=== PATIENT | female | born 1970 | race Caucasian/White ===

== ENCOUNTER 2016-11-23 21:42 | Emergency (ER) | payer MEDICARE, OTHER ==
[2016-11-23 21:54] VITALS: BP 132/99; PULSE 100; RESP 18; TEMP 98.1
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
[2016-11-23] MEDS ORDERED: KETOROLAC 60 MG/2 ML VIAL IM STA (22:33)
--- NOTE | 2016-11-23 22:49 | XR ---
EXAM: XR Right Foot Complete, 3 or More Views CLINICAL HISTORY: Reason: Pain TECHNIQUE: Frontal, lateral and oblique views of the right foot. COMPARISON: No relevant prior studies available. FINDINGS: Bones/joints: No acute fracture or malalignment. Small dorsal calcaneal enthesophyte. Small plantar calcaneal osteophyte. Soft tissues: Unremarkable. No radiopaque foreign body. IMPRESSION: No acute fracture or malalignment.
== END 2016-11-23 22:42 | disposition home or self-care (01) ==
LOC: EC 21:42
DX: S90.31XA Contusion of right foot, initial encounter (principal); E11.9 Type 2 diabetes mellitus without complications; E78.5 Hyperlipidemia, unspecified; I10 Essential (primary) hypertension; F31.9 Bipolar disorder, unspecified; F41.9 Anxiety disorder, unspecified; F41.0 Panic disorder [episodic paroxysmal anxiety]; Z87.891 Personal history of nicotine dependence; Z79.4 Long term (current) use of insulin; Z79.899 Other long term (current) drug therapy; Z88.1 Allergy status to other antibiotic agents; Z88.0 Allergy status to penicillin; Z88.2 Allergy status to sulfonamides; Z88.8 Allergy status to other drugs, medicaments and biological substances; Z88.6 Allergy status to analgesic agent; W23.0XXA Caught, crushed, jammed, or pinched between moving objects, initial encounter
CPT/HCPCS: 73630; 99283; 96372; J1885

== ENCOUNTER → 2016-12-08 | Outpatient (CLI) | payer MEDICARE, OTHER ==
--- NOTE | 2016-12-08 22:10 | MR ---
EXAMINATION TYPE: MR brain wo con DATE OF EXAM: 12/08/2016 COMPARISON: NONE HISTORY: 46-year-old female with headaches, neck and back pain, Trouble walking TECHNIQUE: Multiplanar, multisequence images of the brain and brainstem were acquired without IV con trast. Diffusion weighted imaging is performed. FINDINGS: No evidence for acute infarction, hemorrhage, mass, mass effect, midline shift, herniation, effacemen t of basal cisterns, or extra-axial fluid collection. The ventricles and sulci are age-appropriate. The right vertebral artery is hypoplastic. Otherwise, the major intracranial flow voids are intact. T2/FLAIR weighted sequences show no white matter signal abnormality. Midline structures demonstrate normal morphology. The craniocervical junction is normal. Trace mucosal thickening ethmoid air cells. Globes are intact. IMPRESSION: No intracranial abnormality seen. No white matter signal changes.
--- NOTE | 2016-12-08 22:26 | MR ---
EXAMINATION TYPE: MR cspine/lspine wo con DATE OF EXAM: 12/08/2016 COMPARISON: NONE HISTORY: 46-year-old female Headaches, Neck and back pain, Trouble walking TECHNIQUE: Multiplanar, multisequence images of the cervical followed by the lumbar spine were obtain ed without IV contrast. FINDINGS: CERVICAL SPINE: No craniocervical junction abnormality, predental space widening, or prevertebral soft tissue swellin g. There is straightening of the normal cervical lordosis though alignment is maintained. There is variable mild intervertebral disc desiccation and disc osteophyte complex formation along wi th uncovertebral joint and scattered facet degenerative change. In addition, there is a component of mild congenital spinal canal narrowing within the cervical spine with AP canal dimension of 1 cm. There is canal narrowing is further situated at some levels due to bulging discs/disc osteophyte comp gene. At C2-C3, mild facet arthropathy without canal or foraminal stenosis. At C3-C4, there is broad-based posterior disc osteophyte complex with mild facet and uncovertebral phyllis int degenerative change. Slight further accentuation in the mild congenital canal narrowing with abut ment of the ventral cord and minimal cord flattening but no cord compression. No neuroforaminal steno sis. At C4-C5, mild uncovertebral joint and facet degenerative change. This minimally narrows the right ne uroforamen. No significant spinal canal stenosis. At C5-C6, minimal posterior disc bulge/discussed by complex with uncovertebral joint and facet degene rative change. This minimally narrows the right neuroforamen without significant spinal canal stenosi s. At C6-C7, there is a mild left paracentral broad-based disc protrusion or disc osteophyte complex whi ch minimally accentuates the mild congenital canal narrowing but does not contribute to any significa nt spinal canal stenosis. Additional facet degenerative change here without neuroforaminal stenosis. At C7-T1, facet degenerative change without significant spinal canal or neuroforaminal stenosis. Normal course, caliber, and signal intensity of the cervical cord. There is suggestion of a right paracentral disc protrusion at T3-T4 mildly narrowing the right neurof oramen and possibly similar change at T4-T5 on the left. Incidental 9 mm Thornwaldt cyst is noted. Otherwise, no prevertebral or paravertebral soft tissue abn ormality. LUMBAR SPINE: There is an accentuated lumbar lordosis but with preserved alignment. Intervertebral discs show variable mild to moderate disc desiccation and disc bulging at multiple lev els. There is prominent dorsal epidural fat and prominent circumferential epidural fat beginning at L5 lev el extending downward. No suspicious bone marrow replacement. Conus medullaris is normal. At T12-L1, no spinal canal or neuroforaminal stenosis. At L1-L2, mild broad-based posterior disc protrusion with facet degenerative change. Prominent dorsal epidural fat. Changes do not result in any significant spinal canal or foraminal stenosis. At L2-L3, no significant spinal canal or neuroforaminal stenosis. At L3-L4, there is mild diffuse disc bulge and prominent dorsal epidural fat along with mild facet ar thropathy. A posterior annular fissure is present at this level. No significant spinal canal or neuro foraminal stenosis. At L4-L5, there is diffuse disc bulge with posterior annular fissure along with facet arthropathy and prominent dorsal epidural fat. This causes circumferential attenuation of the thecal sac without sig nificant neural foraminal stenosis. At L5-S1, there is epidural lipomatosis causing moderate thecal sac attenuation. Hypertrophic facet a rthropathy particularly on the left with diffuse disc bulge. No significant neuroforaminal stenosis. Prominent epidural lipomatosis extends within the sacral canal. No prevertebral or paravertebral soft tissue abnormality. COMBINED IMPRESSION: CERVICAL SPINE: 1. Mild to moderate multilevel degenerative disc disease related disc desiccation and small disc bulg es/disc osteophyte complexes. Additional scattered facet and uncovertebral joint arthropathy. 2. There is a component of mild congenital canal stenosis with tiny disc bulges/disc osteophyte compl exes further accentuating the mild canal narrowing such as at C3-C4 and C6-C7. Disc material abuts an d minimally flattens the ventral cord at C3-C4. Otherwise, no cord compression or canal compromise. 3. Partially visualized small right paracentral disc protrusion at T3-T4 mildly narrowing the right n euroforamen and similar changes on the left at T4-T5. LUMBAR SPINE: 1. Accentuated lumbar lordosis with hypertrophic facet arthropathy in the lower lumbar spine but with preserved alignment. 2. Mild to moderate multilevel degenerative disc disease. There is variable disc desiccation and disc bulging with posterior annular fissures at L3-L4 and L4-L5. 3. Prominent epidural fat mild to moderately attenuates the thecal sac at L5-S1 and mildly at at L4-L 5. There is also prominent epidural lipomatosis throughout the sacral spinal canal. No juan canal co mpromise. 4. No high-grade foraminal compromise.
== END | disposition home or self-care (01) ==
LOC: RADMRIMAIN 14:58
PROVIDERS: ATTEND Nurse Practitioner Acute Care
DX: M50.31 Other cervical disc degeneration, high cervical region (principal); M48.02 Spinal stenosis, cervical region; M46.82 Other specified inflammatory spondylopathies, cervical region; M51.36 Other intervertebral disc degeneration, lumbar region; M51.26 Other intervertebral disc displacement, lumbar region; M40.46 Postural lordosis, lumbar region; M46.86 Other specified inflammatory spondylopathies, lumbar region; R51 Headache; Z88.0 Allergy status to penicillin; Z88.1 Allergy status to other antibiotic agents; Z88.2 Allergy status to sulfonamides
CPT/HCPCS: 70551; 72141; 72148

== ENCOUNTER 2018-01-09 19:44 | Emergency (ER) | payer MEDICARE, OTHER ==
[2018-01-09 19:52] VITALS: BP 140/74; PULSE 93; RESP 20; TEMP 98.4
[2018-01-09] MEDS ORDERED: HYDROcodone/APAP 7.5-325MG 1 EACH TAB PO ONE (21:49)
--- NOTE | 2018-01-09 21:51 | ED ---
Back Pain HPI - General Chief Complaint: Back Pain/Injury Stated Complaint: back pain Time Seen by Provider: 01/09/18 21:28 Source: patient Limitations: no limitations - History of Present Illness Initial Comments: This is a 47yo female with PMH of DM, Asthma, HTN, and chronic low back pain who presents today for worsening low back pain x4 days. Pt states that this past Tuesday she was walking down the stairs when she misstepped missing a step jarring her lower back. Later that evening she noticed low back pain that was greater on the left than the right.. Pt stated the low back pain has been constant since Tuesday, today at 5:00pm the pain was at its worst 10/10 sharp pain of the low back spread across the low back b/l with L>R. She stated that her baclofen and norco she took in the AM had not helped so decided to present to the emergency department for further pain management. Pt denied fever, chills , weight loss, IVDU, chest pain, shortness of breath, abdominal pain/epigastric pain, nausea vomiting, parathesias/numbness/tingling, muscles weakeness of the LE or UE b/l, dizziness, syncope, loss of bowel of bladder control, saddle anesthesia, dysuria, urgency, frequency or hematuria, flank pain, . Pt has been following Dr Modi for pain management and injections, pt denies recent spinal injections. - Related Data Home Medications Medication Instructions Recorded Confirmed DULoxetine HCL [Cymbalta] 120 mg PO DAILY 11/06/13 06/09/17 Diazepam 2 mg PO HS 11/06/13 06/09/17 Insulin Aspart [NovoLOG] See Protocol SQ ACHS PRN 11/06/13 06/09/17 Insulin Detemir [Levemir] 10 unit SQ QAM 11/06/13 06/09/17 Losartan/Hydrochlorothiazide 1 tab PO DAILY 11/06/13 06/09/17 [Losartan-Hctz 100-25 mg Tab] Omeprazole [PriLOSEC] 20 mg PO DAILY 11/06/13 06/09/17 clonazePAM [KlonoPIN] 1.5 mg PO TID PRN 11/06/13 06/09/17 Aspirin 325 mg PO DAILY 06/09/17 06/09/17 Atorvastatin [Lipitor] 20 mg PO HS 06/09/17 06/09/17 Baclofen [Lioresal] 10 mg PO BID 06/09/17 06/09/17 Cholecalciferol [Vitamin D3] 5,000 unit PO DAILY 06/09/17 06/09/17 HYDROcodone/APAP 7.5-325MG [[place] 1 tab PO TID PRN 06/09/17 06/09/17 7.5-325] Insulin Detemir [Levemir] 28 unit SQ HS 06/09/17 06/09/17 Meclizine [Antivert] 12.5 mg PO BID 06/09/17 06/09/17 Topiramate [Topamax] 50 mg PO BID 06/09/17 06/09/17 amLODIPine [Norvasc] 10 mg PO DAILY 06/09/17 06/09/17 Previous Rx's Medication Instructions Recorded predniSONE 20 mg PO DAILY 4 Days #4 tab 01/09/18 Allergies Allergy/AdvReac Type Severity Reaction Status Date / Time levofloxacin [From Levaquin] Allergy Anaphylaxis Verified 01/09/18 19:52 methylprednisolone sodium Allergy Unknown Verified 01/09/18 19:52 succinate [From Solu-Medrol] Penicillins Allergy Swelling Verified 01/09/18 19:52 sulfamethoxazole Allergy Swelling Verified 01/09/18 19:52 [From Bactrim] trimethoprim [From Bactrim] Allergy Swelling Verified 01/09/18 19:52 Review of Systems ROS Statement: Those systems with pertinent positive or pertinent negative responses have been documented in the HPI. ROS Other: All systems not noted in ROS Statement are negative. Constitutional: Denies: fever, chills, weight change, night sweats ENT: Denies: ear pain, throat pain Respiratory: Denies: cough, dyspnea, wheezes, hemoptysis Cardiovascular: Denies: chest pain, palpitations, orthopnea, edema, syncope Endocrine: Denies: fatigue Gastrointestinal: Denies: abdominal pain, nausea, vomiting, diarrhea, constipation, hematemesis, melena, hematochezia Genitourinary: Denies: urgency, dysuria, frequency Musculoskeletal: Reports: as per HPI, back pain, myalgia. Denies: joint swelling, arthralgia Skin: Denies: rash, lesions, change in color Neurological: Denies: headache, weakness, numbness, paresthesias, confusion, abnormal gait, vertigo Past Medical History Past Medical History: Asthma, Diabetes Mellitus, Hyperlipidemia, Hypertension History of Any Multi-Drug Resistant Organisms: MRSA Date of last positivie culture/infection: 2012 MDRO Source:: right knee Past Surgical History: Cholecystectomy, Orthopedic Surgery Additional Past Surgical History / Comment(s): thoracotomy age 22 for mass in left lung Past Psychological History: Anxiety, Bipolar, Depression, Panic Disorder Smoking Status: Former smoker Past Alcohol Use History: None Reported Past Drug Use History: None Reported General Exam - General Exam Comments Initial Comments: General: The patient is awake and alert, in no distress, and does not appear acutely ill. Eye: Pupils are equal, round and reactive to light, extra-ocular movements are intact. No nystagmus. There is normal conjunctiva bilaterally. No signs of icterus. Ears, nose, mouth and throat: There are moist mucous membranes and no oral lesions. Neck: The neck is supple, there is no tenderness or JVD. Cardiovascular: There is a regular rate and rhythm. No murmur, rub or gallop is appreciated. Respiratory: Lungs are clear to auscultation, respirations are non-labored, breath sounds are equal. No wheezes, stridor, rales, or rhonchi. Gastrointestinal: Soft, non-distended, non-tender abdomen without masses or organomegaly noted. There is no rebound or guarding present. No CVA tenderness. Bowel sounds are unremarkable. Musculoskeletal: Examination of these back reveals no erythema, lesions or rashes. There is no ecchymosis or soft tissue swelling. Palpation over the left latissimus dorsi reproduces pain. There is no midline vertebral tenderness over the entire length vertebral,. Patient is able to forward flex with discomfort and hyperextend with similar discomfort. Normal ROM, no tenderness of the lower extremities bilaterally. Strength 5/5 of the lower extremities bilaterally. Sensation intact of the lower extremities bilaterally, no saddle paresthesias. Pulses equal bilaterally 2+ DP. +2 deep tendon reflexes of the lower extremities, no fasciculations or myoclonus. Patient is able to stand on her heels and her toes without difficulty. Positive straight leg raise bilaterally. Neurological: A&O x 3. CN II-XII intact, There are no obvious motor or sensory deficits. Coordination appears grossly intact. Speech is normal. Skin: Skin is warm and dry and no rashes or lesions are noted. Psychiatric: Cooperative, appropriate mood & affect, normal judgment. Limitations: no limitations Course Vital Signs 01/09/18 19:49 Temperature 98.4 F Pulse Rate 93 Respiratory 20 Rate Blood Pressure 140/74 O2 Sat by Pulse 99 Oximetry Medical Decision Making - Medical Decision Making 47-year-old with past medical history of chronic low back pain. Given patient' s history of jarring of the low back x-rays were obtained, revealing no acute process. Physical examination findings revealing tenderness to palpation over the left latissimus dorsi raises suspicion for low back strain. Patient stated that she had not taken her baclofen yet today. Patient was given [place] and Flexeril for pain and muscle tension. She states that this gave some relief. She mentioned that she has had success with Toradol injection the past. At this time I feel patient is neurovascularly intact, with low suspicion for cauda equina syndrome, stable for discharge with follow-up with her neurologist who she sees for her chronic low back pain in 1-2 days. Patient stated that she was ready for discharge. Patient is given a Toradol injection prior to discharge. Case discussed in detail with Dr. Vidal. Patient was discharged in stable condition with follow-up with prescription for prednisone for possible inflammation of the low back/additive symptoms relief and f/u with Dr. Modi in 1-2 days. Pt d/c in stable condition. Disposition Clinical Impression: Acute exacerbation of chronic low back pain, Low back strain Disposition: HOME SELF-CARE Condition: Good Instructions: Acute Low Back Pain (ED) Prescriptions: predniSONE 20 mg PO DAILY 4 Days #4 tab Is patient prescribed a controlled substance at d/c from ED?: No Referrals: Sebastian Reyez MD [Primary Care Provider] - 1-2 days Julian Modi MD [STAFF PHYSICIAN] - 1-2 days Time of Disposition: 22:49
[2018-01-09] MEDS ORDERED: CYCLOBENZAPRINE 5 MG TAB PO STA (21:55)
--- NOTE | 2018-01-09 22:13 | XR ---
EXAMINATION TYPE: XR lumbar spine 2 or 3V DATE OF EXAM: 01/09/2018 COMPARISON: NONE HISTORY: Back pain TECHNIQUE: 3 views FINDINGS: Lumbar vertebra have fairly normal alignment. Posterior elements are intact. Sacroiliac isabella nts are intact. There is hypertrophic anterior spurring in the lower thoracic spine. There is no comp ression fracture. Sacroiliac joints appear intact. IMPRESSION: No acute abnormality of the lumbar spine.
[2018-01-09] MEDS ORDERED: KETOROLAC 30 MG/ML 1 ML VIAL IVP STA (22:48)
[2018-01-09] MEDS ORDERED: KETOROLAC 30 MG/ML 1 ML VIAL IM STA (22:52)
== END 2018-01-09 23:25 | disposition home or self-care (01) ==
LOC: EC 19:44
DX: S39.012A Strain of muscle, fascia and tendon of lower back, initial encounter (principal); E11.9 Type 2 diabetes mellitus without complications; E78.5 Hyperlipidemia, unspecified; I10 Essential (primary) hypertension; F41.9 Anxiety disorder, unspecified; F31.9 Bipolar disorder, unspecified; Z86.14 Personal history of Methicillin resistant Staphylococcus aureus infection; Z87.891 Personal history of nicotine dependence; Z90.49 Acquired absence of other specified parts of digestive tract; Z98.890 Other specified postprocedural states; Z79.4 Long term (current) use of insulin; Z79.82 Long term (current) use of aspirin; Z79.899 Other long term (current) drug therapy; Z88.0 Allergy status to penicillin; Z88.1 Allergy status to other antibiotic agents; Z88.2 Allergy status to sulfonamides; Z88.8 Allergy status to other drugs, medicaments and biological substances; X50.1XXA Overexertion from prolonged static or awkward postures, initial encounter; Y93.01 Activity, walking, marching and hiking
CPT/HCPCS: 72100; 99283; 96372; J1885

== ENCOUNTER 2018-04-24 13:53 | Inpatient (IN) | payer MEDICARE, MEDICAID ==
[2018-04-24] MEDS ORDERED: ALPRAZolam 1 MG TAB PO STA (15:38)
--- NOTE | 2018-04-24 15:39 | ED ---
Psych HPI - General Chief Complaint: Psychiatric Symptoms Stated Complaint: "nervous breakdown" Time Seen by Provider: 04/24/18 14:58 Source: patient Mode of arrival: ambulatory - History of Present Illness Initial Comments: 47yo female with PMH of PTSD, anxiety disorder, depression presenting today for "nervous breakdown" pt states that she has been depressed for the past 6 weeks since a breakup with her significant other. Pt states she has had decreased appetite, uncontrollable crying and panic attacks. Pt states that she does not have an suicidal ideations/plan or homicidal thoughts. Pt presented to her primary care today due to depressive feelings and she was told to come to the ER for evaluation and was told she was having a nervous break down, pt does state that she has chest pressure but this is identical to when she has panic attacks and this feeling has been constant for the past 6 weeks, pt denies any shortness of breath, jaw pain, UE parathesias, dizziness, headache, abdominal pain, nausea and vomiting. Pt is eating/drink, she is drinking soda on exam. Pt states that her appetite has just decreased. Remainder of ROS (-), patient denies any recent fever, chills, shortness of breath, back pain, abdominal pain , nausea or vomiting, numbness or tingling, dysuria or hematuria, constipation or diarrhea, headaches or visual changes, or any other complaints. She is crying at first however this subsides through remainder of HPI. VS within acceptable limits, pt appears well, nontoxic. - Related Data Home Medications Medication Instructions Recorded Confirmed DULoxetine HCL [Cymbalta] 120 mg PO DAILY 11/06/13 04/24/18 Insulin Aspart [NovoLOG] See Protocol SQ ACHS PRN 11/06/13 04/24/18 Losartan/Hydrochlorothiazide 1 tab PO DAILY 11/06/13 04/24/18 [Losartan-Hctz 100-25 mg Tab] Atorvastatin [Lipitor] 20 mg PO HS 06/09/17 04/24/18 Baclofen [Lioresal] 10 mg PO BID 06/09/17 04/24/18 HYDROcodone/APAP 7.5-325MG [[place] 1 tab PO TID PRN 06/09/17 04/24/18 7.5-325] amLODIPine [Norvasc] 10 mg PO DAILY 06/09/17 04/24/18 Insulin Glargine,Hum.rec.anlog 3 unit SQ HS 04/24/18 04/24/18 [Lantus Solostar] busPIRone HCL 15 mg PO BID 04/24/18 04/24/18 sitaGLIPtin PHOSPHATE [Januvia] 100 mg PO DAILY 04/24/18 04/24/18 Allergies Allergy/AdvReac Type Severity Reaction Status Date / Time levofloxacin [From Levaquin] Allergy Anaphylaxis Verified 04/24/18 14:43 methylprednisolone sodium Allergy Unknown Verified 04/24/18 14:43 succinate [From Solu-Medrol] Penicillins Allergy Swelling Verified 04/24/18 14:43 sulfamethoxazole Allergy Swelling Verified 04/24/18 14:43 [From Bactrim] trimethoprim [From Bactrim] Allergy Swelling Verified 04/24/18 14:43 Review of Systems ROS Statement: Those systems with pertinent positive or pertinent negative responses have been documented in the HPI. ROS Other: All systems not noted in ROS Statement are negative. Constitutional: Denies: fever, chills Eyes: Denies: eye pain ENT: Denies: as per HPI, ear pain, throat pain Respiratory: Denies: cough, dyspnea, wheezes, hemoptysis, stridor Cardiovascular: Reports: as per HPI (chest pressure/anxiety). Denies: chest pain, palpitations Endocrine: Denies: fatigue Gastrointestinal: Reports: as per HPI (decreased appetite x6 weeks). Denies: abdominal pain, nausea, vomiting, diarrhea, constipation, hematemesis Genitourinary: Denies: urgency, dysuria, frequency, hematuria Musculoskeletal: Denies: back pain Skin: Denies: rash, lesions Neurological: Denies: as per HPI, headache, weakness, numbness, paresthesias, confusion, abnormal gait Psychiatric: Reports: as per HPI, anxiety, depression, other (panic attacks on and off for 6 weeks) Past Medical History Past Medical History: Asthma, Diabetes Mellitus, Hyperlipidemia, Hypertension History of Any Multi-Drug Resistant Organisms: MRSA Date of last positivie culture/infection: 2012 MDRO Source:: right knee Past Surgical History: Cholecystectomy, Orthopedic Surgery Additional Past Surgical History / Comment(s): thoracotomy age 22 for mass in left lung Past Psychological History: Anxiety, Bipolar, Depression, Panic Disorder Smoking Status: Former smoker Past Alcohol Use History: None Reported Past Drug Use History: None Reported General Exam Limitations: no limitations Course Vital Signs 04/24/18 04/24/18 04/24/18 14:08 16:45 21:00 Temperature 98.7 F Pulse Rate 99 88 89 Respiratory 18 20 16 Rate Blood Pressure 163/68 143/78 138/80 O2 Sat by Pulse 94 L 98 97 Oximetry 04/24/18 04/25/18 04/25/18 22:21 00:16 12:21 Temperature Pulse Rate 87 77 Respiratory 16 20 18 Rate Blood Pressure 162/94 151/72 O2 Sat by Pulse 98 98 Oximetry Medical Decision Making - Medical Decision Making Laboratory findings as noted above, chest x-ray negative. Negative acute coronary workup. EKG no changes from 2017. Pt chest pressure stated to be identical to previous panic episodes and has been ongoing for 6 weeks at this time I feel this is the cause of the symptom. UA (-) Urine drug (-). Pt given 1mg PO xanax which she stated helped with anxiety. Pt medically cleared, EPS notified. EPS decided pt should be admitted for further psychiatric care. Pt resumed on home medications after reconciling medications. Patient was transferred to the floor on in stable condition. - Lab Data Result diagrams: 04/24/18 16:08 04/24/18 16:08 Lab Results 04/24/18 04/24/18 04/24/18 Range/Units 16:08 16:08 16:08 WBC 13.1 H (3.8-10.6) k/uL RBC 4.60 (3.80-5.40) m/uL Hgb 13.0 (11.4-16.0) gm/dL Hct 40.4 (34.0-46.0) % MCV 87.7 (80.0-100.0) fL MCH 28.3 (25.0-35.0) pg MCHC 32.3 (31.0-37.0) g/dL RDW 13.7 (11.5-15.5) % Plt Count 467 H (150-450) k/uL Neutrophils % 69 % Lymphocytes % 26 % Monocytes % 3 % Eosinophils % 1 % Basophils % 0 % Neutrophils # 9.1 H (1.3-7.7) k/uL Lymphocytes # 3.4 (1.0-4.8) k/uL Monocytes # 0.4 (0-1.0) k/uL Eosinophils # 0.1 (0-0.7) k/uL Basophils # 0.1 (0-0.2) k/uL Sodium 137 (137-145) mmol/L Potassium 3.2 L (3.5-5.1) mmol/L Chloride 102 (98-107) mmol/L Carbon Dioxide 23 (22-30) mmol/L Anion Gap 12 mmol/L BUN 11 (7-17) mg/dL Creatinine 0.78 (0.52-1.04) mg/dL Est GFR (CKD-EPI)AfAm >90 (>60 ml/min/1.73 sqM) Est GFR (CKD-EPI)NonAf >90 (>60 ml/min/1.73 sqM) Glucose 157 H (74-99) mg/dL POC Glucose (mg/dL) (75-99) mg/dL POC Glu Dyed Raw Stock Blower Feeder ID Calcium 9.6 (8.4-10.2) mg/dL Total Bilirubin 0.4 (0.2-1.3) mg/dL AST 34 (14-36) U/L ALT 38 (9-52) U/L Alkaline Phosphatase 85 (38-126) U/L Total Creatine Kinase 131 (30-135) U/L CK-MB (CK-2) 2.8 H (0.0-2.4) ng/mL CK-MB (CK-2) Rel Index 2.1 Troponin I <0.012 (0.000-0.034) ng/mL Total Protein 7.4 (6.3-8.2) g/dL Albumin 4.0 (3.5-5.0) g/dL Urine Color Urine Appearance (Clear) Urine pH (5.0-8.0) Ur Specific [place] (1.001-1.035) Urine Protein (Negative) Urine Glucose (UA) (Negative) Urine Ketones (Negative) Urine Blood (Negative) Urine Nitrite (Negative) Urine Bilirubin (Negative) Urine Urobilinogen (<2.0) mg/dL Ur Leukocyte Esterase (Negative) Urine RBC (0-5) /hpf Urine WBC (0-5) /hpf Ur Squamous Epith Cells (0-4) /hpf Urine Bacteria (None) /hpf Urine Mucus (None) /hpf Urine Opiates Screen (NotDetected) Ur Oxycodone Screen (NotDetected) Urine Methadone Screen (NotDetected) Ur Propoxyphene Screen (NotDetected) Ur Barbiturates Screen (NotDetected) U Tricyclic Antidepress (NotDetected) Ur Phencyclidine Scrn (NotDetected) Ur Amphetamines Screen (NotDetected) U Methamphetamines Scrn (NotDetected) U Benzodiazepines Scrn (NotDetected) Urine Cocaine Screen (NotDetected) U Marijuana (THC) Screen (NotDetected) 04/24/18 04/25/18 Range/Units 19:27 12:52 WBC (3.8-10.6) k/uL RBC (3.80-5.40) m/uL Hgb (11.4-16.0) gm/dL Hct (34.0-46.0) % MCV (80.0-100.0) fL MCH (25.0-35.0) pg MCHC (31.0-37.0) g/dL RDW (11.5-15.5) % Plt Count (150-450) k/uL Neutrophils % % Lymphocytes % % Monocytes % % Eosinophils % % Basophils % % Neutrophils # (1.3-7.7) k/uL Lymphocytes # (1.0-4.8) k/uL Monocytes # (0-1.0) k/uL Eosinophils # (0-0.7) k/uL Basophils # (0-0.2) k/uL Sodium (137-145) mmol/L Potassium (3.5-5.1) mmol/L Chloride (98-107) mmol/L Carbon Dioxide (22-30) mmol/L Anion Gap mmol/L BUN (7-17) mg/dL Creatinine (0.52-1.04) mg/dL Est GFR (CKD-EPI)AfAm (>60 ml/min/1.73 sqM) Est GFR (CKD-EPI)NonAf (>60 ml/min/1.73 sqM) Glucose (74-99) mg/dL POC Glucose (mg/dL) 132 H (75-99) mg/dL POC Glu Dyed Raw Stock Blower Feeder ID [place] Calcium (8.4-10.2) mg/dL Total Bilirubin (0.2-1.3) mg/dL AST (14-36) U/L ALT (9-52) U/L Alkaline Phosphatase (38-126) U/L Total Creatine Kinase (30-135) U/L CK-MB (CK-2) (0.0-2.4) ng/mL CK-MB (CK-2) Rel Index Troponin I (0.000-0.034) ng/mL Total Protein (6.3-8.2) g/dL Albumin (3.5-5.0) g/dL Urine Color Yellow Urine Appearance Cloudy H (Clear) Urine pH 6.0 (5.0-8.0) Ur Specific [place] 1.008 (1.001-1.035) Urine Protein Negative (Negative) Urine Glucose (UA) Negative (Negative) Urine Ketones Negative (Negative) Urine Blood Negative (Negative) Urine Nitrite Negative (Negative) Urine Bilirubin Negative (Negative) Urine Urobilinogen <2.0 (<2.0) mg/dL Ur Leukocyte Esterase Negative (Negative) Urine RBC 1 (0-5) /hpf Urine WBC 3 (0-5) /hpf Ur Squamous Epith Cells 8 H (0-4) /hpf Urine Bacteria Occasional H (None) /hpf Urine Mucus Rare H (None) /hpf Urine Opiates Screen Detected H (NotDetected) Ur Oxycodone Screen Not Detected (NotDetected) Urine Methadone Screen Not Detected (NotDetected) Ur Propoxyphene Screen Not Detected (NotDetected) Ur Barbiturates Screen Not Detected (NotDetected) U Tricyclic Antidepress Not Detected (NotDetected) Ur Phencyclidine Scrn Not Detected (NotDetected) Ur Amphetamines Screen Not Detected (NotDetected) U Methamphetamines Scrn Not Detected (NotDetected) U Benzodiazepines Scrn Detected H (NotDetected) Urine Cocaine Screen Not Detected (NotDetected) U Marijuana (THC) Screen Not Detected (NotDetected) - EKG Data EKG Comments: Ventricular rate is 87bpm, NM interval 156 ms hindu 136 ms QT/QTC 426/512 ms this is normal sinus, right bundle branch block. Nonspecific ST-T wave abnormalities. EKG was compared to that of May 2017, no acute changes. PT was elevated myself and Dr. Mares. Disposition Clinical Impression: Anxiety, Depression Disposition: ADMITTED IP TO THIS HOSP Condition: Stable
[2018-04-24 16:35] LABS: Basophils # (A) 0.1 k/uL (0-0.2); Basophils % (A) 0 %; Eosinophils # (A) 0.1 k/uL (0-0.7); Eosinophils % (A) 1 %; HCT 40.4 % (34.0-46.0); Lymphocytes # (A) 3.4 k/uL (1.0-4.8); Lymphocytes % (A) 26 %; MCH 28.3 pg (25.0-35.0); MCHC 32.3 g/dL (31.0-37.0); MCV 87.7 fL (80.0-100.0); Mean Platelet Volume 6.3; Monocytes # (A) 0.4 k/uL (0-1.0); Monocytes % (A) 3 %; Neutrophils # (A) 9.1 k/uL (1.3-7.7); Neutrophils % (A) 69 %; Platelet Count 467 k/uL (150-450); RDW 13.7 % (11.5-15.5); WBC 13.1 k/uL (3.8-10.6)
[2018-04-24 16:46] LABS: ALT 38 U/L (9-52); AST 34 U/L (14-36); Alkaline Phosphatase 85 U/L (38-126); Anion Gap 12 mmol/L; Blood Urea Nitrogen 11 mg/dL (7-17); Calcium 9.6 mg/dL (8.4-10.2); Carbon Dioxide 23 mmol/L (22-30); Chloride 102 mmol/L (98-107); Glucose 157 mg/dL (74-99); Potassium 3.2 mmol/L (3.5-5.1); Sodium 137 mmol/L (137-145); Total Bilirubin 0.4 mg/dL (0.2-1.3); Total Protein 7.4 g/dL (6.3-8.2)
[2018-04-24 16:49] LABS: Creatine Kinase 131 U/L (30-135)
--- NOTE | 2018-04-24 16:59 | XR ---
EXAMINATION TYPE: XR chest 2V DATE OF EXAM: 04/24/2018 COMPARISON: Prior chest x-ray 11/06/2013 HISTORY: Anxiety, hypertension, pain TECHNIQUE: Frontal and lateral views of the chest are obtained. FINDINGS: There is no focal air space opacity, pleural effusion, or pneumothorax seen. The cardiac silhouette size is within normal limits. Postop change again noted to the right shoulder. Kyphosis ce ntered near the thoracic lumbar junction as on prior exam. The osseous structures are intact. IMPRESSION: No acute cardiopulmonary process.
[2018-04-24 17:01] LABS: Creatine Kinase MB 2.8 ng/mL (0.0-2.4); Troponin I <0.012 ng/mL (0.000-0.034)
[2018-04-24] MEDS ORDERED: POTASSIUM CHLORIDE ER 20 MEQ TAB.ER PO STA (18:22)
[2018-04-24 19:40] LABS: Appearance,Urine Cloudy (Clear); Bacteria,Urine Occasional /hpf; Bilirubin,Urine Negative (Negative); Blood,Urine Negative (Negative); Color,Urine Yellow; Glucose,Urine (UA) Negative (Negative); Ketones,Urine Negative (Negative); Leukocyte Esterase,Urine Negative (Negative); Mucus,Urine Rare /hpf; Nitrite,Urine Negative (Negative); Protein,Urine Negative (Negative); RBC,Urine 1 /hpf (0-5); Specific Gravity,Urine 1.008 (1.001-1.035); Squamous Epithelial Cell,Urine 8 /hpf (0-4); Urobilinogen,Urine <2.0 mg/dL (<2.0); WBC,Urine 3 /hpf (0-5)
[2018-04-24 19:42] LABS: Amphetamine Screen,Urine Not Detected (NotDetected); Barbiturate Screen,Urine Not Detected (NotDetected); Benzodiazepines Screen,Urine Detected (NotDetected); Cocaine Screen,Urine Not Detected (NotDetected); Methadone Screen, Urine Not Detected (NotDetected); Opiate Screen,Urine Detected (NotDetected); Oxycodone Screen, Urine Not Detected (NotDetected); Phencyclidine Screen,Urine Not Detected (NotDetected); Tricyclic Antidepressant,Urine Not Detected (NotDetected); Urn Cannabinoid Scrn Not Detected (NotDetected)
[2018-04-24] MEDS: LORazepam 1 MG TAB PO STA (21:07)
[2018-04-24] MEDS ORDERED: BACLOFEN 10 MG TAB PO PRN (21:58)
[2018-04-24] MEDS ORDERED: INSULIN DETEMIR 100 UNIT/ML 10 ML VIAL SQ SCH (22:00)
[2018-04-24] MEDS ORDERED: diphenhydrAMINE 50 MG CAP PO STA (23:48)
[2018-04-24] MEDS ORDERED: HYDROcodone/APAP 5-325MG 1 EACH TAB PO STA (23:48)
--- NOTE | 2018-04-25 07:24 | CDI ---
Documentation Clarification OP Dear Celi ARMANDO, DO, Please do addendum to ED report for Physical exam Thank you, Sanjuana Nogueira Pitch Flaker If you have any question, Please contact healthcare economics manager at [phone] [facility]
[2018-04-25] MEDS ORDERED: INSULIN ASPART 100 UNIT/ML 1 ML 10 ML VIAL SQ SCH (07:30)
[2018-04-25] MEDS ORDERED: LOSARTAN-HCTZ 50-12.5 MG 1 EACH TAB PO SCH (09:00)
[2018-04-25] MEDS ORDERED: ATORVASTATIN 20 MG TAB PO SCH (09:00)
[2018-04-25] MEDS ORDERED: DULoxetine HCL 20 MG CAPSULE.DR PO SCH (09:00)
[2018-04-25] MEDS ORDERED: busPIRone HCl 10 MG TAB PO SCH (09:00)
[2018-04-25] MEDS ORDERED: LINAGLIPTIN 5 MG TABLET PO SCH (09:00)
[2018-04-25] MEDS ORDERED: HYDROcodone/APAP 5-325MG 1 EACH TAB PO STA (11:38)
[2018-04-25 12:54] LABS: Glucose,Whole Blood 132 mg/dL (75-99)
[2018-04-25] MEDS ORDERED: LORazepam 1 MG TAB PO STA (17:40)
[2018-04-25 17:43] LABS: Glucose,Whole Blood 126 mg/dL (75-99)
[2018-04-25] MEDS: LORazepam 1 MG TAB PO STA (17:45)
[2018-04-25] MEDS ORDERED: MAGNESIUM HYDROXIDE 2,400 MG/10 ML CUP PO PRN (17:50)
[2018-04-25] MEDS ORDERED: MAG HYDROX/AL HYDROX/SIMETH 30 ML CUP PO PRN (17:50)
[2018-04-25 20:21] LABS: Glucose,Whole Blood 119 mg/dL (75-99)
[2018-04-25] MEDS: BACLOFEN 10 MG TAB PO SCH (20:44)
[2018-04-25] MEDS: busPIRone HCl 5 MG TAB PO SCH (20:44)
[2018-04-25] MEDS: INSULIN ASPART 100 UNIT/ML 1 ML 10 ML VIAL SQ SCH (20:51)
[2018-04-25] MEDS ORDERED: traZODone HCL 50 MG TAB PO SCH (21:00)
[2018-04-26 06:57] LABS: Glucose,Whole Blood 110 mg/dL (75-99)
[2018-04-26] MEDS: INSULIN ASPART 100 UNIT/ML 1 ML 10 ML VIAL SQ SCH ×4 (08:07→21:40)
[2018-04-26] MEDS ORDERED: DULoxetine HCL 60 MG CAPSULE.DR PO SCH (09:00)
[2018-04-26] MEDS: LINAGLIPTIN 5 MG TABLET PO SCH (09:38)
[2018-04-26] MEDS: busPIRone HCl 5 MG TAB PO SCH (09:40)
[2018-04-26] MEDS: amLODIPine 10 MG TAB PO SCH (09:40)
[2018-04-26] MEDS: BACLOFEN 10 MG TAB PO SCH ×2 (09:40→21:31)
[2018-04-26] MEDS: LOSARTAN-HCTZ 50-12.5 MG 1 EACH TAB PO SCH (09:41)
--- NOTE | 2018-04-26 10:13 | P.HP ---
Psychiatric H&P - . H&P Date: 04/26/18 History & Physical: Allergies Allergy/AdvReac Type Severity Reaction Status Date / Time levofloxacin [From Levaquin] Allergy Anaphylaxis Verified 04/24/18 14:43 methylprednisolone sodium Allergy Unknown Verified 04/24/18 14:43 succinate [From Solu-Medrol] Penicillins Allergy Swelling Verified 04/24/18 14:43 sulfamethoxazole Allergy Swelling Verified 04/24/18 14:43 [From Bactrim] trimethoprim [From Bactrim] Allergy Swelling Verified 04/24/18 14:43 Vital Signs Temp 98.0 F 04/26/18 07:22 Pulse 94 04/26/18 07:22 Resp 16 04/26/18 07:22 BP 112/53 04/26/18 07:22 Pulse Ox 98 04/25/18 18:00 Intake & Output 04/25/18 04/26/18 04/26/18 18:59 06:59 18:59 Weight 116.346 kg Laboratory Last Values WBC 13.1 k/uL (3.8-10.6) H 04/24/18 16:08 RBC 4.60 m/uL (3.80-5.40) 04/24/18 16:08 Hgb 13.0 gm/dL (11.4-16.0) 04/24/18 16:08 Hct 40.4 % (34.0-46.0) 04/24/18 16:08 MCV 87.7 fL (80.0-100.0) 04/24/18 16:08 MCH 28.3 pg (25.0-35.0) 04/24/18 16:08 MCHC 32.3 g/dL (31.0-37.0) 04/24/18 16:08 RDW 13.7 % (11.5-15.5) 04/24/18 16:08 Plt Count 467 k/uL (150-450) H 04/24/18 16:08 Neutrophils % 69 % 04/24/18 16:08 Lymphocytes % 26 % 04/24/18 16:08 Monocytes % 3 % 04/24/18 16:08 Eosinophils % 1 % 04/24/18 16:08 Basophils % 0 % 04/24/18 16:08 Neutrophils # 9.1 k/uL (1.3-7.7) H 04/24/18 16:08 Lymphocytes # 3.4 k/uL (1.0-4.8) 04/24/18 16:08 Monocytes # 0.4 k/uL (0-1.0) 04/24/18 16:08 Eosinophils # 0.1 k/uL (0-0.7) 04/24/18 16:08 Basophils # 0.1 k/uL (0-0.2) 04/24/18 16:08 Sodium 137 mmol/L (137-145) 04/24/18 16:08 Potassium 3.2 mmol/L (3.5-5.1) L 04/24/18 16:08 Chloride 102 mmol/L (98-107) 04/24/18 16:08 Carbon Dioxide 23 mmol/L (22-30) 04/24/18 16:08 Anion Gap 12 mmol/L 04/24/18 16:08 BUN 11 mg/dL (7-17) 04/24/18 16:08 Creatinine 0.78 mg/dL (0.52-1.04) 04/24/18 16:08 Est GFR (CKD-EPI)AfAm >90 (>60 ml/min/1.73 sqM) 04/24/18 16:08 Est GFR (CKD-EPI)NonAf >90 (>60 ml/min/1.73 sqM) 04/24/18 16:08 Glucose 157 mg/dL (74-99) H 04/24/18 16:08 POC Glucose (mg/dL) 110 mg/dL (75-99) H 04/26/18 06:40 POC Glu Radiator Tester ID Kassy Guillory 04/26/18 06:40 Calcium 9.6 mg/dL (8.4-10.2) 04/24/18 16:08 Total Bilirubin 0.4 mg/dL (0.2-1.3) 04/24/18 16:08 AST 34 U/L (14-36) 04/24/18 16:08 ALT 38 U/L (9-52) 04/24/18 16:08 Alkaline Phosphatase 85 U/L (38-126) 04/24/18 16:08 Total Creatine Kinase 131 U/L (30-135) 04/24/18 16:08 CK-MB (CK-2) 2.8 ng/mL (0.0-2.4) H 04/24/18 16:08 CK-MB (CK-2) Rel Index 2.1 04/24/18 16:08 Troponin I <0.012 ng/mL (0.000-0.034) 04/24/18 16:08 Total Protein 7.4 g/dL (6.3-8.2) 04/24/18 16:08 Albumin 4.0 g/dL (3.5-5.0) 04/24/18 16:08 Urine Color Yellow 04/24/18 19: Urine Appearance Cloudy (Clear) H 04/24/18 19: Urine pH 6.0 (5.0-8.0) 04/24/18 19: Ur Specific Kidder 1.008 (1.001-1.035) 04/24/18 19: Urine Protein Negative (Negative) 04/24/18 19: Urine Glucose (UA) Negative (Negative) 04/24/18 19: Urine Ketones Negative (Negative) 04/24/18 19: Urine Blood Negative (Negative) 04/24/18 19: Urine Nitrite Negative (Negative) 04/24/18 19: Urine Bilirubin Negative (Negative) 04/24/18 19: Urine Urobilinogen <2.0 mg/dL (<2.0) 04/24/18 19:27 Ur Leukocyte Esterase Negative (Negative) 04/24/18 19:27 Urine RBC 1 /hpf (0-5) 04/24/18 19: Urine WBC 3 /hpf (0-5) 04/24/18 19:27 Ur Squamous Epith Cells 8 /hpf (0-4) H 04/24/18 19:27 Urine Bacteria Occasional /hpf (None) H 04/24/18 19:27 Urine Mucus Rare /hpf (None) H 04/24/18 19:27 Urine Opiates Screen Detected (NotDetected) H 04/24/18 19: Ur Oxycodone Screen Not Detected (NotDetected) 04/24/18 19:27 Urine Methadone Screen Not Detected (NotDetected) 04/24/18 19: Ur Propoxyphene Screen Not Detected (NotDetected) 04/24/18 19: Ur Barbiturates Screen Not Detected (NotDetected) 04/24/18 19:27 U Tricyclic Antidepress Not Detected (NotDetected) 04/24/18 19:27 Ur Phencyclidine Scrn Not Detected (NotDetected) 04/24/18 19:27 Ur Amphetamines Screen Not Detected (NotDetected) 04/24/18 19:27 U Methamphetamines Scrn Not Detected (NotDetected) 04/24/18 19:27 U Benzodiazepines Scrn Detected (NotDetected) H 04/24/18 19:27 Urine Cocaine Screen Not Detected (NotDetected) 04/24/18 19:27 U Marijuana (THC) Screen Not Detected (NotDetected) 04/24/18 19:27 Assessment and Plan Assessment: 47 y.o. female with PMH of PTSD, anxiety disorder, depression presenting today for "nervous breakdown" pt states that she has been depressed for the past 6 weeks since a breakup with her significant other. Pt states she has had decreased appetite, uncontrollable crying and panic attacks. Pt states that she does not have an suicidal ideations/plan or homicidal thoughts. Pt presented to her primary care today due to depressive feelings and she was told to come to the ER for evaluation and was told she was having a nervous break down, pt does state that she has chest pressure but this is identical to when she has panic attacks and this feeling has been constant for the past 6 weeks, pt denies any shortness of breath, jaw pain, UE parathesias, dizziness, headache, abdominal pain, nausea and vomiting. Pt is eating/drink, she is drinking soda on exam. Pt states that her appetite has just decreased. Remainder of ROS (-), patient denies any recent fever, chills, shortness of breath, back pain, abdominal pain , nausea or vomiting, numbness or tingling, dysuria or hematuria, constipation or diarrhea, headaches or visual changes, or any other complaints. She is crying at first however this subsides through remainder of HPI. VS within acceptable limits, pt appears well, nontoxic. She states that she's had probably mental illness last 5 or 6 years but can relate back to childhood where she's had numerous anxiousness pressured thoughts. She states that her daughter has bipolar affective disorder and is not well treated on her medications. This daughter has a child and the mother is facing fpc time. Patient wants to be healthy to be able to take care of her grandchild. - Related Data Home Medications Medication Instructions Recorded Confirmed DULoxetine HCL [Cymbalta] 120 mg PO DAILY 11/06/13 04/24/18 Insulin Aspart [NovoLOG] See Protocol SQ ACHS PRN 11/06/13 04/24/18 Losartan/Hydrochlorothiazide 1 tab PO DAILY 11/06/13 04/24/18 [Losartan-Hctz 100-25 mg Tab] Atorvastatin [Lipitor] 20 mg PO HS 06/09/17 04/24/18 Baclofen [Lioresal] 10 mg PO BID 06/09/17 04/24/18 HYDROcodone/APAP 7.5-325MG [[place] 1 tab PO TID PRN 06/09/17 04/24/18 7.5-325] amLODIPine [Norvasc] 10 mg PO DAILY 06/09/17 04/24/18 Insulin Glargine,Hum.rec.anlog 3 unit SQ HS 04/24/18 04/24/18 [Lantus Solostar] busPIRone HCL 15 mg PO BID 04/24/18 04/24/18 sitaGLIPtin PHOSPHATE [Januvia] 100 mg PO DAILY 04/24/18 04/24/18 Allergies Allergy/AdvReac Type Severity Reaction Status Date / Time levofloxacin [From Levaquin] Allergy Anaphylaxis Verified 04/24/18 14:43 methylprednisolone sodium Allergy Unknown Verified 04/24/18 14:43 succinate [From Solu-Medrol] Penicillins Allergy Swelling Verified 04/24/18 14:43 sulfamethoxazole Allergy Swelling Verified 04/24/18 14:43 [From Bactrim] trimethoprim [From Bactrim] Allergy Swelling Verified 04/24/18 14:43 Past Medical History Past Medical History: Asthma, Diabetes Mellitus, Hyperlipidemia, Hypertension History of Any Multi-Drug Resistant Organisms: MRSA Date of last positivie culture/infection: 2012 MDRO Source:: right knee Past Surgical History: Cholecystectomy, Orthopedic Surgery Additional Past Surgical History / Comment(s): thoracotomy age 22 for mass in left lung Past Psychological History: Anxiety, Bipolar, Depression, Panic Disorder Smoking Status: Former smoker Past Alcohol Use History: None Reported Past Drug Use History: None Reported 04/24/18 16:08 04/24/18 16:08 Lab Results 04/24/18 04/24/18 04/24/18 Range/Units 16:08 16:08 16:08 WBC 13.1 H (3.8-10.6) k/uL RBC 4.60 (3.80-5.40) m/uL Hgb 13.0 (11.4-16.0) gm/dL Hct 40.4 (34.0-46.0) % MCV 87.7 (80.0-100.0) fL MCH 28.3 (25.0-35.0) pg MCHC 32.3 (31.0-37.0) g/dL RDW 13.7 (11.5-15.5) % Plt Count 467 H (150-450) k/uL Neutrophils % 69 % Lymphocytes % 26 % Monocytes % 3 % Eosinophils % 1 % Basophils % 0 % Neutrophils # 9.1 H (1.3-7.7) k/uL Lymphocytes # 3.4 (1.0-4.8) k/uL Monocytes # 0.4 (0-1.0) k/uL Eosinophils # 0.1 (0-0.7) k/uL Basophils # 0.1 (0-0.2) k/uL Sodium 137 (137-145) mmol/L Potassium 3.2 L (3.5-5.1) mmol/L Chloride 102 (98-107) mmol/L Carbon Dioxide 23 (22-30) mmol/L Anion Gap 12 mmol/L BUN 11 (7-17) mg/dL Creatinine 0.78 (0.52-1.04) mg/dL Est GFR (CKD-EPI)AfAm >90 (>60 ml/min/1.73 sqM) Est GFR (CKD-EPI)NonAf >90 (>60 ml/min/1.73 sqM) Glucose 157 H (74-99) mg/dL POC Glucose (mg/dL) (75-99) mg/dL POC Glu Radiator Tester ID Calcium 9.6 (8.4-10.2) mg/dL Total Bilirubin 0.4 (0.2-1.3) mg/dL AST 34 (14-36) U/L ALT 38 (9-52) U/L Alkaline Phosphatase 85 (38-126) U/L Total Creatine Kinase 131 (30-135) U/L CK-MB (CK-2) 2.8 H (0.0-2.4) ng/mL CK-MB (CK-2) Rel Index 2.1 Troponin I <0.012 (0.000-0.034) ng/mL Total Protein 7.4 (6.3-8.2) g/dL Albumin 4.0 (3.5-5.0) g/dL Urine Color Urine Appearance (Clear) Urine pH (5.0-8.0) Ur Specific Kidder (1.001-1.035) Urine Protein (Negative) Urine Glucose (UA) (Negative) Urine Ketones (Negative) Urine Blood (Negative) Urine Nitrite (Negative) Urine Bilirubin (Negative) Urine Urobilinogen (<2.0) mg/dL Ur Leukocyte Esterase (Negative) Urine RBC (0-5) /hpf Urine WBC (0-5) /hpf Ur Squamous Epith Cells (0-4) /hpf Urine Bacteria (None) /hpf Urine Mucus (None) /hpf Urine Opiates Screen (NotDetected) Ur Oxycodone Screen (NotDetected) Urine Methadone Screen (NotDetected) Ur Propoxyphene Screen (NotDetected) Ur Barbiturates Screen (NotDetected) U Tricyclic Antidepress (NotDetected) Ur Phencyclidine Scrn (NotDetected) Ur Amphetamines Screen (NotDetected) U Methamphetamines Scrn (NotDetected) U Benzodiazepines Scrn (NotDetected) Urine Cocaine Screen (NotDetected) U Marijuana (THC) Screen (NotDetected) 04/24/18 04/25/18 Range/Units 19:27 12:52 WBC (3.8-10.6) k/uL RBC (3.80-5.40) m/uL Hgb (11.4-16.0) gm/dL Hct (34.0-46.0) % MCV (80.0-100.0) fL MCH (25.0-35.0) pg MCHC (31.0-37.0) g/dL RDW (11.5-15.5) % Plt Count (150-450) k/uL Neutrophils % % Lymphocytes % % Monocytes % % Eosinophils % % Basophils % % Neutrophils # (1.3-7.7) k/uL Lymphocytes # (1.0-4.8) k/uL Monocytes # (0-1.0) k/uL Eosinophils # (0-0.7) k/uL Basophils # (0-0.2) k/uL Sodium (137-145) mmol/L Potassium (3.5-5.1) mmol/L Chloride (98-107) mmol/L Carbon Dioxide (22-30) mmol/L Anion Gap mmol/L BUN (7-17) mg/dL Creatinine (0.52-1.04) mg/dL Est GFR (CKD-EPI)AfAm (>60 ml/min/1.73 sqM) Est GFR (CKD-EPI)NonAf (>60 ml/min/1.73 sqM) Glucose (74-99) mg/dL POC Glucose (mg/dL) 132 H (75-99) mg/dL POC Glu Radiator Tester ID Lata Muir Calcium (8.4-10.2) mg/dL Total Bilirubin (0.2-1.3) mg/dL AST (14-36) U/L ALT (9-52) U/L Alkaline Phosphatase (38-126) U/L Total Creatine Kinase (30-135) U/L CK-MB (CK-2) (0.0-2.4) ng/mL CK-MB (CK-2) Rel Index Troponin I (0.000-0.034) ng/mL Total Protein (6.3-8.2) g/dL Albumin (3.5-5.0) g/dL Urine Color Yellow Urine Appearance Cloudy H (Clear) Urine pH 6.0 (5.0-8.0) Ur Specific Kidder 1.008 (1.001-1.035) Urine Protein Negative (Negative) Urine Glucose (UA) Negative (Negative) Urine Ketones Negative (Negative) Urine Blood Negative (Negative) Urine Nitrite Negative (Negative) Urine Bilirubin Negative (Negative) Urine Urobilinogen <2.0 (<2.0) mg/dL Ur Leukocyte Esterase Negative (Negative) Urine RBC 1 (0-5) /hpf Urine WBC 3 (0-5) /hpf Ur Squamous Epith Cells 8 H (0-4) /hpf Urine Bacteria Occasional H (None) /hpf Urine Mucus Rare H (None) /hpf Urine Opiates Screen Detected H (NotDetected) Ur Oxycodone Screen Not Detected (NotDetected) Urine Methadone Screen Not Detected (NotDetected) Ur Propoxyphene Screen Not Detected (NotDetected) Ur Barbiturates Screen Not Detected (NotDetected) U Tricyclic Antidepress Not Detected (NotDetected) Ur Phencyclidine Scrn Not Detected (NotDetected) Ur Amphetamines Screen Not Detected (NotDetected) U Methamphetamines Scrn Not Detected (NotDetected) U Benzodiazepines Scrn Detected H (NotDetected) Urine Cocaine Screen Not Detected (NotDetected) U Marijuana (THC) Screen Not Detected (NotDetected) Musculoskeletal Examination - Abnormal/Involuntary Movements: [tremors, tics] Strength: [greater than antigravity (greater than/equal to 3/5) in all extremities] Muscle Tone: [no impairment, hypertonic/myoclonus] Gait: [grossly normal] Station: [grossly normal] Social history: This 47-year-old white female who had a recent separation from her boyfriend of 11 years is living with her daughter who is in high school and 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 Mental Status Examination - General Appearance: [ casual, appears stated age Speech/Language: [spontaneous, rapid, slurred, rambled, expressive, loud] Attitude/Behavior: [cooperative, guarded, irritable] Mood: [depressed, anxious, elated, irritable, angry, fearful, hopelessness] Affect: [ lively,labile, blunted constricted Orientation: [time, person, place situation] Thought Content: [wnl] Risk Factors: [no suicidal (ideations, plan), and/or Homicidal (ideations, plan) , other] Perception: [wnl Thought Processes: [goal-oriented Concentration/Attention Span: [wnl] [Per observation and interview with the patient] Recent Memory: [wnl ] [ 3 out of 3 in 3 minutes] Remote Memory: [wnl] [past events, as related history] Intelligence: [above average] [based on history, based on vocabulary, syntax, grammar, and content] Judgement: [poor] [per patient's behavior/history of present illness] Insight: [ poor] [understanding severity of illness/history of present illness] Admitting Diagnosis: [bipolar -depressed type: PTSD] Patient Strengths - Personal Skills: [x] Achievements: [x] Steady employment/financial stability: [x] Housing stability: [x] Able to vocalize needs: [x] Motivation, determination, readiness for change: [x] Setting and pursuing goals, hopes, dreams, aspirations: [x] Patient Limitations: [medication, non-compliance, pathological/unsupported environment, no interests, intellectual impairment, complicated medical illness , legal issues, lack of social supports, other] Initial Plan of Care: [Formal voluntary admission. She will be evaluated by psychiatry, medicine, social work, nursing staff, and recreational therapy. She will be checked every 15 minutes for safety and integrated into a morales milieu therapeutic environment. I've encouraged her to go to groups and be active on the unit. She'll be started on Invega 3 mg by mouth daily at bedtime , Lamictal 25 mg by mouth daily at bedtime, Mirapex 0.5 mg by mouth daily at bedtime along with clonidine 0.1 mg 3 times a day for PTSD and anxiety. She was discontinued off her Cymbalta, BuSpar, and trazodone. She has a history of 6 months ago being on Klonopin and was changed to BuSpar and outpatient basis. Clinical evidence for change shows little response in the original clinical trial using BuSpar] Estimated Length of Stay: [5-6 days] Initial Discharge Plan: [home, [facility], referred to therapist Prognosis: [ guarded] Justification for Inpatient Hospitalization - [ agitation, anxiety, depression resulting in significant loss of functioning.] [Dangerous to self with need for controlled environment.] [Emotional or behavioral conditions and complications requiring 24 hour medical and nursing care.] [Need for special drug therapy, or other therapeutic program requiring continuous hospitalization.] [Failure of social or occupational functioning.] [Inability to meet basic life and health needs.] (1) Depression Current Visit: Yes Status: Acute Priority: High Code(s): F32.9 - MAJOR DEPRESSIVE DISORDER, SINGLE EPISODE, UNSPECIFIED SNOMED Code(s): 06090517 Time with Patient: Greater than 30
[2018-04-26 12:54] LABS: Glucose,Whole Blood 88 mg/dL (75-99)
[2018-04-26] MEDS: HYDROcodone/APAP 7.5-325MG 1 EACH TAB PO PRN ×2 (14:45→21:31)
[2018-04-26] MEDS: cloNIDine HCL 0.1 MG TAB PO SCH ×2 (17:12→21:31)
[2018-04-26 17:42] LABS: Glucose,Whole Blood 92 mg/dL (75-99)
[2018-04-26 20:14] LABS: Hemoglobin A1C 6.3 % (4.0-6.0)
[2018-04-26 20:50] LABS: Glucose,Whole Blood 105 mg/dL (75-99)
[2018-04-26] MEDS ORDERED: lamoTRIgine 25 MG TAB PO SCH (21:00)
[2018-04-26] MEDS ORDERED: PRAMIPEXOLE 0.5 MG TAB PO SCH (21:00)
[2018-04-26] MEDS ORDERED: PALIPERIDONE 3 MG TAB.ER.24 PO SCH (21:00)
[2018-04-26] MEDS: ATORVASTATIN 20 MG TAB PO SCH (21:31)
[2018-04-26] MEDS: INSULIN DETEMIR 100 UNIT/ML 10 ML VIAL SQ SCH (21:35)
[2018-04-27] MEDS ORDERED: hydrOXYzine PAMOATE 25 MG CAP PO PRN (02:06)
[2018-04-27 02:48] LABS: Glucose,Whole Blood 88 mg/dL (75-99)
[2018-04-27 06:39] LABS: Glucose,Whole Blood 89 mg/dL (75-99)
[2018-04-27] MEDS: INSULIN ASPART 100 UNIT/ML 1 ML 10 ML VIAL SQ SCH ×4 (06:49→21:15)
[2018-04-27] MEDS: BACLOFEN 10 MG TAB PO SCH ×2 (08:50→21:22)
[2018-04-27] MEDS: LINAGLIPTIN 5 MG TABLET PO SCH (08:50)
[2018-04-27] MEDS: amLODIPine 10 MG TAB PO SCH (08:50)
[2018-04-27] MEDS: LOSARTAN-HCTZ 50-12.5 MG 1 EACH TAB PO SCH (08:50)
[2018-04-27] MEDS: ACETAMINOPHEN TAB 325 MG TAB PO PRN ×2 (08:51→13:58)
[2018-04-27] MEDS: cloNIDine HCL 0.1 MG TAB PO SCH (08:51)
[2018-04-27 12:26] LABS: Glucose,Whole Blood 88 mg/dL (75-99)
--- NOTE | 2018-04-27 13:48 | P.PN ---
Subjective Progress Note Date: 04/27/18 Principal diagnosis: bipolar affective disorder-depressed 47 y.o. female with PMH of PTSD, anxiety disorder, depression presenting today for "nervous breakdown" pt states that she has been depressed for the past 6 weeks since a breakup with her significant other. Pt states she has had decreased appetite, uncontrollable crying and panic attacks. Pt states that she does not have an suicidal ideations/plan or homicidal thoughts. Objective - Vital Signs Vital signs: Vital Signs Temp 97.6 F 04/27/18 01:44 Pulse 108 H 04/27/18 08:56 Resp 20 04/27/18 08:56 BP 125/72 04/27/18 08:56 Pulse Ox 98 04/25/18 18:00 - Labs CBC & Chem 7: 04/24/18 16:08 04/24/18 16:08 Labs: Abnormal Lab Results - Last 24 Hours (Table) 04/24/18 04/26/18 Range/Units 16:08 20:37 POC Glucose (mg/dL) 105 H (75-99) mg/dL Hemoglobin A1c 6.3 H (4.0-6.0) % Assessment and Plan Assessment: 47 y.o. female with PMH of PTSD, anxiety disorder, depression presenting today for "nervous breakdown" pt states that she has been depressed for the past 6 weeks since a breakup with her significant other. Pt states she has had decreased appetite, uncontrollable crying and panic attacks. Pt states that she does not have an suicidal ideations/plan or homicidal thoughts. Pt presented to her primary care today due to depressive feelings and she was told to come to the ER for evaluation and was told she was having a nervous break down, pt does state that she has chest pressure but this is identical to when she has panic attacks and this feeling has been constant for the past 6 weeks, pt denies any shortness of breath, jaw pain, UE parathesias, dizziness, headache, abdominal pain, nausea and vomiting. Pt is eating/drink, she is drinking soda on exam. Pt states that her appetite has just decreased. Remainder of ROS (-), patient denies any recent fever, chills, shortness of breath, back pain, abdominal pain , nausea or vomiting, numbness or tingling, dysuria or hematuria, constipation or diarrhea, headaches or visual changes, or any other complaints. She is crying at first however this subsides through remainder of HPI. VS within acceptable limits, pt appears well, nontoxic. She states that she's had probably mental illness last 5 or 6 years but can relate back to childhood where she's had numerous anxiousness pressured thoughts. She states that her daughter has bipolar affective disorder and is not well treated on her medications. This daughter has a child and the mother is facing senior living time. Patient wants to be healthy to be able to take care of her grandchild. - Related Data Home Medications Medication Instructions Recorded Confirmed DULoxetine HCL [Cymbalta] 120 mg PO DAILY 11/06/13 04/24/18 Insulin Aspart [NovoLOG] See Protocol SQ ACHS PRN 11/06/13 04/24/18 Losartan/Hydrochlorothiazide 1 tab PO DAILY 11/06/13 04/24/18 [Losartan-Hctz 100-25 mg Tab] Atorvastatin [Lipitor] 20 mg PO HS 06/09/17 04/24/18 Baclofen [Lioresal] 10 mg PO BID 06/09/17 04/24/18 HYDROcodone/APAP 7.5-325MG [[place] 1 tab PO TID PRN 06/09/17 04/24/18 7.5-325] amLODIPine [Norvasc] 10 mg PO DAILY 06/09/17 04/24/18 Insulin Glargine,Hum.rec.anlog 3 unit SQ HS 04/24/18 04/24/18 [Lantus Solostar] busPIRone HCL 15 mg PO BID 04/24/18 04/24/18 sitaGLIPtin PHOSPHATE [Januvia] 100 mg PO DAILY 04/24/18 04/24/18 Allergies Allergy/AdvReac Type Severity Reaction Status Date / Time levofloxacin [From Levaquin] Allergy Anaphylaxis Verified 04/24/18 14:43 methylprednisolone sodium Allergy Unknown Verified 04/24/18 14:43 succinate [From Solu-Medrol] Penicillins Allergy Swelling Verified 04/24/18 14:43 sulfamethoxazole Allergy Swelling Verified 04/24/18 14:43 [From Bactrim] trimethoprim [From Bactrim] Allergy Swelling Verified 04/24/18 14:43 Past Medical History Past Medical History: Asthma, Diabetes Mellitus, Hyperlipidemia, Hypertension History of Any Multi-Drug Resistant Organisms: MRSA Date of last positivie culture/infection: 2012 MDRO Source:: right knee Past Surgical History: Cholecystectomy, Orthopedic Surgery Additional Past Surgical History / Comment(s): thoracotomy age 22 for mass in left lung Past Psychological History: Anxiety, Bipolar, Depression, Panic Disorder Smoking Status: Former smoker Past Alcohol Use History: None Reported Past Drug Use History: None Reported 04/24/18 16:08 04/24/18 16:08 Lab Results 04/24/18 04/24/18 04/24/18 Range/Units 16:08 16:08 16:08 WBC 13.1 H (3.8-10.6) k/uL RBC 4.60 (3.80-5.40) m/uL Hgb 13.0 (11.4-16.0) gm/dL Hct 40.4 (34.0-46.0) % MCV 87.7 (80.0-100.0) fL MCH 28.3 (25.0-35.0) pg MCHC 32.3 (31.0-37.0) g/dL RDW 13.7 (11.5-15.5) % Plt Count 467 H (150-450) k/uL Neutrophils % 69 % Lymphocytes % 26 % Monocytes % 3 % Eosinophils % 1 % Basophils % 0 % Neutrophils # 9.1 H (1.3-7.7) k/uL Lymphocytes # 3.4 (1.0-4.8) k/uL Monocytes # 0.4 (0-1.0) k/uL Eosinophils # 0.1 (0-0.7) k/uL Basophils # 0.1 (0-0.2) k/uL Sodium 137 (137-145) mmol/L Potassium 3.2 L (3.5-5.1) mmol/L Chloride 102 (98-107) mmol/L Carbon Dioxide 23 (22-30) mmol/L Anion Gap 12 mmol/L BUN 11 (7-17) mg/dL Creatinine 0.78 (0.52-1.04) mg/dL Est GFR (CKD-EPI)AfAm >90 (>60 ml/min/1.73 sqM) Est GFR (CKD-EPI)NonAf >90 (>60 ml/min/1.73 sqM) Glucose 157 H (74-99) mg/dL POC Glucose (mg/dL) (75-99) mg/dL POC Glu Multimedia Programmer ID Calcium 9.6 (8.4-10.2) mg/dL Total Bilirubin 0.4 (0.2-1.3) mg/dL AST 34 (14-36) U/L ALT 38 (9-52) U/L Alkaline Phosphatase 85 (38-126) U/L Total Creatine Kinase 131 (30-135) U/L CK-MB (CK-2) 2.8 H (0.0-2.4) ng/mL CK-MB (CK-2) Rel Index 2.1 Troponin I <0.012 (0.000-0.034) ng/mL Total Protein 7.4 (6.3-8.2) g/dL Albumin 4.0 (3.5-5.0) g/dL Urine Color Urine Appearance (Clear) Urine pH (5.0-8.0) Ur Specific [place] (1.001-1.035) Urine Protein (Negative) Urine Glucose (UA) (Negative) Urine Ketones (Negative) Urine Blood (Negative) Urine Nitrite (Negative) Urine Bilirubin (Negative) Urine Urobilinogen (<2.0) mg/dL Ur Leukocyte Esterase (Negative) Urine RBC (0-5) /hpf Urine WBC (0-5) /hpf Ur Squamous Epith Cells (0-4) /hpf Urine Bacteria (None) /hpf Urine Mucus (None) /hpf Urine Opiates Screen (NotDetected) Ur Oxycodone Screen (NotDetected) Urine Methadone Screen (NotDetected) Ur Propoxyphene Screen (NotDetected) Ur Barbiturates Screen (NotDetected) U Tricyclic Antidepress (NotDetected) Ur Phencyclidine Scrn (NotDetected) Ur Amphetamines Screen (NotDetected) U Methamphetamines Scrn (NotDetected) U Benzodiazepines Scrn (NotDetected) Urine Cocaine Screen (NotDetected) U Marijuana (THC) Screen (NotDetected) 04/24/18 04/25/18 Range/Units 19:27 12:52 WBC (3.8-10.6) k/uL RBC (3.80-5.40) m/uL Hgb (11.4-16.0) gm/dL Hct (34.0-46.0) % MCV (80.0-100.0) fL MCH (25.0-35.0) pg MCHC (31.0-37.0) g/dL RDW (11.5-15.5) % Plt Count (150-450) k/uL Neutrophils % % Lymphocytes % % Monocytes % % Eosinophils % % Basophils % % Neutrophils # (1.3-7.7) k/uL Lymphocytes # (1.0-4.8) k/uL Monocytes # (0-1.0) k/uL Eosinophils # (0-0.7) k/uL Basophils # (0-0.2) k/uL Sodium (137-145) mmol/L Potassium (3.5-5.1) mmol/L Chloride (98-107) mmol/L Carbon Dioxide (22-30) mmol/L Anion Gap mmol/L BUN (7-17) mg/dL Creatinine (0.52-1.04) mg/dL Est GFR (CKD-EPI)AfAm (>60 ml/min/1.73 sqM) Est GFR (CKD-EPI)NonAf (>60 ml/min/1.73 sqM) Glucose (74-99) mg/dL POC Glucose (mg/dL) 132 H (75-99) mg/dL POC Glu Multimedia Programmer ID [place] Calcium (8.4-10.2) mg/dL Total Bilirubin (0.2-1.3) mg/dL AST (14-36) U/L ALT (9-52) U/L Alkaline Phosphatase (38-126) U/L Total Creatine Kinase (30-135) U/L CK-MB (CK-2) (0.0-2.4) ng/mL CK-MB (CK-2) Rel Index Troponin I (0.000-0.034) ng/mL Total Protein (6.3-8.2) g/dL Albumin (3.5-5.0) g/dL Urine Color Yellow Urine Appearance Cloudy H (Clear) Urine pH 6.0 (5.0-8.0) Ur Specific [place] 1.008 (1.001-1.035) Urine Protein Negative (Negative) Urine Glucose (UA) Negative (Negative) Urine Ketones Negative (Negative) Urine Blood Negative (Negative) Urine Nitrite Negative (Negative) Urine Bilirubin Negative (Negative) Urine Urobilinogen <2.0 (<2.0) mg/dL Ur Leukocyte Esterase Negative (Negative) Urine RBC 1 (0-5) /hpf Urine WBC 3 (0-5) /hpf Ur Squamous Epith Cells 8 H (0-4) /hpf Urine Bacteria Occasional H (None) /hpf Urine Mucus Rare H (None) /hpf Urine Opiates Screen Detected H (NotDetected) Ur Oxycodone Screen Not Detected (NotDetected) Urine Methadone Screen Not Detected (NotDetected) Ur Propoxyphene Screen Not Detected (NotDetected) Ur Barbiturates Screen Not Detected (NotDetected) U Tricyclic Antidepress Not Detected (NotDetected) Ur Phencyclidine Scrn Not Detected (NotDetected) Ur Amphetamines Screen Not Detected (NotDetected) U Methamphetamines Scrn Not Detected (NotDetected) U Benzodiazepines Scrn Detected H (NotDetected) Urine Cocaine Screen Not Detected (NotDetected) U Marijuana (THC) Screen Not Detected (NotDetected) Musculoskeletal Examination - Abnormal/Involuntary Movements: [tremors, tics] Strength: [greater than antigravity (greater than/equal to 3/5) in all extremities] Muscle Tone: [no impairment, hypertonic/myoclonus] Gait: [grossly normal] Station: [grossly normal] Social history: This 47-year-old white female who had a recent separation from her boyfriend of 11 years is living with her daughter who is in high school and 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 Mental Status Examination - General Appearance: [ casual, appears stated age Speech/Language: [spontaneous, rapid, slurred, rambled, expressive, loud] Attitude/Behavior: [cooperative, guarded, irritable] Mood: [depressed, anxious, elated, irritable, angry, fearful, hopelessness] Affect: [ lively,labile, blunted constricted Orientation: [time, person, place situation] Thought Content: [wnl] Risk Factors: [no suicidal (ideations, plan), and/or Homicidal (ideations, plan) , other] Perception: [wnl Thought Processes: [goal-oriented Concentration/Attention Span: [wnl] [Per observation and interview with the patient] Recent Memory: [wnl ] [ 3 out of 3 in 3 minutes] Remote Memory: [wnl] [past events, as related history] Intelligence: [above average] [based on history, based on vocabulary, syntax, grammar, and content] Judgement: [poor] [per patient's behavior/history of present illness] Insight: [ poor] [understanding severity of illness/history of present illness] Admitting Diagnosis: [bipolar -depressed type: PTSD] Patient Strengths - Personal Skills: [x] Achievements: [x] Steady employment/financial stability: [x] Housing stability: [x] Able to vocalize needs: [x] Motivation, determination, readiness for change: [x] Setting and pursuing goals, hopes, dreams, aspirations: [x] Patient Limitations: [medication, non-compliance, pathological/unsupported environment, no interests, intellectual impairment, complicated medical illness , legal issues, lack of social supports, other] Initial Plan of Care: [Formal voluntary admission. She will be evaluated by psychiatry, medicine, social work, nursing staff, and recreational therapy. She will be checked every 15 minutes for safety and integrated into a morales milieu therapeutic environment. I've encouraged her to go to groups and be active on the unit. She'll be started on Invega 6 mg by mouth daily at bedtime , Lamictal 50 mg by mouth daily at bedtime, Mirapex 1.0 mg by mouth daily at bedtime along with clonidine 0.2 mg 3 times a day for PTSD and anxiety. She was discontinued off her Cymbalta, BuSpar, and trazodone. She has a history of 6 months ago being on Klonopin and was changed to BuSpar and outpatient basis. Clinical evidence for change shows little response in the original clinical trial using BuSpar] Estimated Length of Stay: [5 days] Initial Discharge Plan: [[facility], referred to therapist Prognosis: [ guarded] Justification for Inpatient Hospitalization - [ agitation, anxiety, depression resulting in significant loss of functioning.] [Dangerous to self with need for controlled environment.] [Emotional or behavioral conditions and complications requiring 24 hour medical and nursing care.] [Need for special drug therapy, or other therapeutic program requiring continuous hospitalization.] [Failure of social or occupational functioning.] [Inability to meet basic life and health needs.] (1) Depression Current Visit: Yes Status: Acute Priority: High Code(s): F32.9 - MAJOR DEPRESSIVE DISORDER, SINGLE EPISODE, UNSPECIFIED SNOMED Code(s): 86269922 Time with Patient: Less than 30
[2018-04-27] MEDS ORDERED: BUTALB/APAP/CAFF 50-325-40MG TAB PO PRN (14:34)
--- NOTE | 2018-04-27 14:37 | P.MDCNMH ---
History of Present Illness H&P Date: 04/27/18 Chief Complaint: Depression 47-year-old female who has been admitted to the mental health unit for depression and "nervous breakdown" per patient. Dr. Caceres has been consulted for medical management. The patient has a history of diabetes mellitus, hyperlipidemia, hypertension, PTSD, anxiety, bipolar disorder, and depression. She also has a history of MRSA in her right knee in 2012. Patient seen and examined in the mental health unit with Dr. Caceres. The patient denies any medical concerns at this time. She denies chest pain or pressure. Denies shortness of breath. Denies nausea or vomiting. Vital signs have been stable. Blood sugars have been stable. Her insulin regimen was changed last night to 30 units of Levemir. Review of Systems Those systems with pertinent positive or pertinent negative responses have been documented in the HPI Past Medical History Past Medical History: Asthma, Diabetes Mellitus, Hyperlipidemia, Hypertension Additional Past Medical History / Comment(s): 04-25-18 pt wants a flu vaccine while here. pmh includes:ptsd, anxiety, panic attacks, bipolar depression. as child has ear infections /rupture ear drum has scarring and some mild loss of hearing. History of Any Multi-Drug Resistant Organisms: MRSA Date of last positivie culture/infection: 2012 MDRO Source:: right knee Past Surgical History: Cholecystectomy, Orthopedic Surgery Additional Past Surgical History / Comment(s): thoracotomy age 22 for mass in left lung-benign, toby foot sx for bone spurs, toby knee scopes, 2 rt knee replacements, 1 lt knee replacement, rt shoulder scope, rt shoulder rebilt- removed part of clavicle Past Anesthesia/Blood Transfusion Reactions: Motion Sickness Additional Past Anesthesia/Blood Transfusion Reaction / Comment(s): clausterphobia. pt stated never had a blood transfusion Past Psychological History: Anxiety, Bipolar, Depression, Panic Disorder Smoking Status: Former smoker Past Alcohol Use History: Rare Additional Past Alcohol Use History / Comment(s): started smoking at age 13 and quit 2016 smoked 1/2 ppd. Past Drug Use History: None Reported - Past Family History Mother Family Medical History: Diabetes Mellitus, Hypertension Additional Family Medical History / Comment(s): hemochromatosis. "heart problems" Father Family Medical History: Diabetes Mellitus, Hyperlipidemia, Hypertension Additional Family Medical History / Comment(s): depression, anxiety Medications and Allergies Home Medications Medication Instructions Recorded Confirmed Type DULoxetine HCL [Cymbalta] 120 mg PO DAILY 11/06/13 04/24/18 History Insulin Aspart [NovoLOG] See Protocol SQ ACHS PRN 11/06/13 04/24/18 History Losartan/Hydrochlorothiazide 1 tab PO DAILY 11/06/13 04/24/18 History [Losartan-Hctz 100-25 mg Tab] Atorvastatin [Lipitor] 20 mg PO HS 06/09/17 04/24/18 History Baclofen [Lioresal] 10 mg PO BID 06/09/17 04/24/18 History HYDROcodone/APAP 7.5-325MG [[place] 1 tab PO TID PRN 06/09/17 04/24/18 History 7.5-325] amLODIPine [Norvasc] 10 mg PO DAILY 06/09/17 04/24/18 History Insulin Glargine,Hum.rec.anlog 3 unit SQ HS 04/24/18 04/24/18 History [Lantus Solostar] busPIRone HCL 15 mg PO BID 04/24/18 04/24/18 History sitaGLIPtin PHOSPHATE [Januvia] 100 mg PO DAILY 04/24/18 04/24/18 History Allergies Allergy/AdvReac Type Severity Reaction Status Date / Time levofloxacin [From Levaquin] Allergy Anaphylaxis Verified 04/24/18 14:43 methylprednisolone sodium Allergy Unknown Verified 04/24/18 14:43 succinate [From Solu-Medrol] Penicillins Allergy Swelling Verified 04/24/18 14:43 sulfamethoxazole Allergy Swelling Verified 04/24/18 14:43 [From Bactrim] trimethoprim [From Bactrim] Allergy Swelling Verified 04/24/18 14:43 Physical Exam Vitals: Vital Signs Temp Pulse Pulse Resp BP BP Pulse Ox 04/26/18 09:46 104 H 186/86 04/26/18 07:22 98.0 F 94 16 112/53 04/25/18 18:05 98.0 F 91 16 146/84 04/25/18 18:00 98.7 F 81 18 147/74 98 04/25/18 12:21 77 18 151/72 98 Intake and Output 04/25/18 04/26/18 04/26/18 22:59 06:59 14:59 Other: Weight 116.346 kg GENERAL: This is a 47-year-old female in no apparent distress at the time of examination. HEENT: Head is atraumatic, normocephalic. Pupils are equal, round, and reactive to light. Sclerae anicteric. Conjunctivae are clear. Mucus membranes of the mouth are moist. Neck is supple. RESPIRATORY: Clear to auscultation. No wheezes, rales, or rhonchi. No use of accessory muscles. CARDIOVASCULAR: Regular rate and rhythm. S1 and S2 noted. No systolic or diastolic murmur auscultated. No JVD noted. No S3 or S4 noted. GASTROINTESTINAL: No distention noted. Abdomen soft and round. Normal active bowel sounds auscultated x 4 quadrants. INTEGUMENTARY: No cyanosis. No jaundice. No rashes noted. No cellulitis noted. EXTREMITIES: 2+ peripheral pulses. No evidence of peripheral edema. No calf tenderness noted. NEUROLOGIC: Cranial nerves II-XII intact. PSYCHIATRIC: Awake, alert, and oriented X 3. Cranial Nerve Examination - Cranial Nerves Cranial Nerve I- Olfactory: Intact Cranial Nerve II- Optic: Intact Cranial Nerve III- Oculomotor: Intact Cranial Nerve IV- Trochlear: Intact Cranial Nerve V- Trigeminal: Intact Cranial Nerve - Abducens: Intact Cranial Nerve VII- Facial: Intact Cranial Nerve VIII- Auditory: Intact Cranial Nerve IX- Glossopharyngeal: Intact Cranial Nerve X- Vagus: Intact Cranial Nerve XI- Accessory: Intact Cranial Nerve XII- Hypoglossal: Intact Results CBC & Chem 7: 04/24/18 16:08 04/24/18 16:08 Labs: Abnormal Lab Results - Last 24 Hours (Table) 04/25/18 04/25/18 04/25/18 Range/Units 12:52 17:36 20:01 POC Glucose (mg/dL) 132 H 126 H 119 H (75-99) mg/dL 04/26/18 Range/Units 06:40 POC Glucose (mg/dL) 110 H (75-99) mg/dL Assessment and Plan Plan: ASSESSMENT: Depression History of anxiety, bipolar disorder, and PTSD Diabetes mellitus, type II Hyperlipidemia Hypertension History of MRSA in right knee 2012 Obesity: BMI 37.9 PLAN: Continue psychiatric care per Dr. Vazquez Home meds as appropriate Continue Levemir 30 units at HS and sliding scale Monitor vital signs and address as appropriate Further recommendations pending patient's course Thank you for this consultation Do not hesitate to contact us with any questions or concerns regarding [place] Nurse practitioner note has been reviewed by physician. Signing provider agrees with the documented findings, assessment, and plan of care.
[2018-04-27] MEDS: cloNIDine HCL 0.2 MG TAB PO SCH ×2 (17:33→21:23)
[2018-04-27 17:44] LABS: Glucose,Whole Blood 91 mg/dL (75-99)
[2018-04-27 20:20] LABS: Glucose,Whole Blood 87 mg/dL (75-99)
[2018-04-27] MEDS ORDERED: PRAMIPEXOLE 1 MG TAB PO SCH (21:00)
[2018-04-27] MEDS ORDERED: PALIPERIDONE 6 MG TAB.ER.24 PO SCH (21:00)
[2018-04-27] MEDS ORDERED: lamoTRIgine 25 MG TAB PO SCH (21:00)
[2018-04-27] MEDS: INSULIN DETEMIR 100 UNIT/ML 10 ML VIAL SQ SCH (21:19)
[2018-04-27] MEDS: ATORVASTATIN 20 MG TAB PO SCH (21:22)
[2018-04-27] MEDS: HYDROcodone/APAP 7.5-325MG 1 EACH TAB PO PRN (21:26)
[2018-04-28 06:45] LABS: Glucose,Whole Blood 95 mg/dL (75-99)
[2018-04-28 06:51] VITALS: TEMP 97.4
[2018-04-28] MEDS: INSULIN ASPART 100 UNIT/ML 1 ML 10 ML VIAL SQ SCH (08:01)
[2018-04-28] MEDS: cloNIDine HCL 0.2 MG TAB PO SCH (08:06)
[2018-04-28] MEDS: LOSARTAN-HCTZ 50-12.5 MG 1 EACH TAB PO SCH (08:07)
[2018-04-28] MEDS: LINAGLIPTIN 5 MG TABLET PO SCH (08:07)
[2018-04-28] MEDS: BACLOFEN 10 MG TAB PO SCH (08:07)
[2018-04-28] MEDS: amLODIPine 10 MG TAB PO SCH (08:07)
[2018-04-28] MEDS: HYDROcodone/APAP 7.5-325MG 1 EACH TAB PO PRN (08:08)
[2018-04-28 08:11] VITALS: BP 119/57; PULSE 101; RESP 18
--- NOTE | 2018-04-28 11:08 | P.DS ---
Providers Date of admission: 04/25/18 17:29 Expected date of discharge: 04/28/18 Attending physician: Enzo Vazquez DO Consults: 04/25/18 17:50 Consult Physician Routine Consulting Provider: Sebastian Reyez Consult Reason/Comments: H&P for mental health admission Do you want consulting provider notified?: Yes Primary care physician: Sebastian Reyez - Discharge Diagnosis(es) (1) Depression bipolar affective disorder-depressed 47 y.o. female with PMH of PTSD, anxiety disorder, depression presenting today for "nervous breakdown" pt states that she has been depressed for the past 6 weeks since a breakup with her significant other. Pt states she has had decreased appetite, uncontrollable crying and panic attacks. Pt states that she does not have an suicidal ideations/plan or homicidal thoughts. Current Visit: Yes Status: Acute Priority: Low Hospital Course: Mental Status Examination - General Appearance: [ casual, appears stated age Speech/Language: [spontaneous] Attitude/Behavior: [cooperative] Mood: [depressed 2/10, anxious 2/10 Affect: [ lively,wnl Orientation: [time, person, place situation] Thought Content: [wnl] Risk Factors: [no suicidal (ideations, plan), and/or Homicidal (ideations, plan) , other] Perception: [wnl Thought Processes: [goal-oriented Concentration/Attention Span: [wnl] [Per observation and interview with the patient] Recent Memory: [wnl ] [ 3 out of 3 in 3 minutes] Remote Memory: [wnl] [past events, as related history] Intelligence: [above average] [based on history, based on vocabulary, syntax, grammar, and content] Judgement: [good] [per patient's behavior/history of present illness] Insight: [ god] [understanding severity of illness/history of present illness] Admitting Diagnosis: [bipolar -depressed type: PTSD] Initial Plan of Care: [Formal voluntary admission. She was evaluated by psychiatry, medicine, social work, nursing staff, and recreational therapy. She will be checked every 15 minutes for safety and integrated into a morales milieu therapeutic environment. I've encouraged her to go to groups and be active on the unit. She'll be started on Invega 6 mg by mouth daily at bedtime , Lamictal 100 mg by mouth daily at bedtime, Mirapex 1.0 mg by mouth daily at bedtime along with clonidine 0.2 mg 3 times a day for PTSD and anxiety. She was discontinued off her Cymbalta, BuSpar, and trazodone. She has a history of 6 months ago being on Klonopin and was changed to BuSpar and outpatient basis. Clinical evidence for change shows little response in the original clinical trial using BuSpar] Pertinent Studies: 47-year-old female who has been admitted to the mental health unit for depression and "nervous breakdown" per patient. Dr. Caceres has been consulted for medical management. The patient has a history of diabetes mellitus, hyperlipidemia, hypertension, PTSD, anxiety, bipolar disorder, and depression. She also has a history of MRSA in her right knee in 2012. Patient seen and examined in the mental health unit with Dr. Ccaeres. The patient denies any medical concerns at this time. She denies chest pain or pressure. Denies shortness of breath. Denies nausea or vomiting. Vital signs have been stable. Blood sugars have been stable. Her insulin regimen was changed last night to 30 units of Levemir. Home meds as appropriate Continue Levemir 30 units at HS and sliding scale Patient Condition at Discharge: Good Plan - Discharge Summary Discharge Rx Participant: Yes New Discharge Prescriptions: New Butalb/APAP/Caff 50-325-40Mg [Fioricet 50-325-40] 1 each PO Q4HR PRN 30 Days #10 tab PRN Reason: Headache cloNIDine HCL [Catapres] 0.2 mg PO TID 30 Days #90 tab lamoTRIgine [LaMICtal] 100 mg PO 2099 30 Days #30 tab Paliperidone [Invega] 6 mg PO 2099 30 Days #30 tab.er.24 Pramipexole [Mirapex] 1 mg PO 2099 30 Days #30 tab Continue Losartan/Hydrochlorothiazide [Losartan-Hctz 100-25 mg Tab] 1 tab PO DAILY Baclofen [Lioresal] 10 mg PO BID HYDROcodone/APAP 7.5-325MG [[place] 7.5-325] 1 tab PO TID PRN PRN Reason: Pain Atorvastatin [Lipitor] 20 mg PO HS amLODIPine [Norvasc] 10 mg PO DAILY Butalb/Acetaminophen/Caffeine [Fioricet 50-325-40] 1 tab PO Q4HR PRN PRN Reason: Migraine Headache Discontinued DULoxetine HCL [Cymbalta] 120 mg PO DAILY Insulin Aspart [NovoLOG] See Protocol SQ ACHS PRN PRN Reason: Blood Sugar - High busPIRone HCL 15 mg PO BID Insulin Glargine,Hum.rec.anlog [Lantus Solostar] 3 unit SQ HS sitaGLIPtin PHOSPHATE [Januvia] 100 mg PO DAILY Discharge Medication List Losartan/Hydrochlorothiazide [Losartan-Hctz 100-25 mg Tab] 1 tab PO DAILY [History] Atorvastatin [Lipitor] 20 mg PO HS 06/09/17 [History] Baclofen [Lioresal] 10 mg PO BID 06/09/17 [History] HYDROcodone/APAP 7.5-325MG [[place] 7.5-325] 1 tab PO TID PRN 06/09/17 [History] amLODIPine [Norvasc] 10 mg PO DAILY 06/09/17 [History] Butalb/Acetaminophen/Caffeine [Fioricet 50-325-40] 1 tab PO Q4HR PRN 04/27/18 [ History] Butalb/APAP/Caff 50-325-40Mg [Fioricet 50-325-40] 1 each PO Q4HR PRN 30 Days # 10 tab 04/28/18 [Rx] Paliperidone [Invega] 6 mg PO 2100 30 Days #30 tab.er.24 04/28/18 [Rx] Pramipexole [Mirapex] 1 mg PO 2100 30 Days #30 tab 04/28/18 [Rx] cloNIDine HCL [Catapres] 0.2 mg PO TID 30 Days #90 tab 04/28/18 [Rx] lamoTRIgine [LaMICtal] 100 mg PO 2100 30 Days #30 tab 04/28/18 [Rx] Follow up Appointment(s)/Referral(s): Sebastian Reyez MD [Primary Care Provider] - 1-2 days Discharge Disposition: HOME SELF-CARE
[2018-04-28] MEDS ORDERED: lamoTRIgine 100 MG TAB PO SCH (21:00)
== END 2018-04-28 12:31 | disposition home or self-care (01) | DRG 885 ==
LOC: EC 13:53 → 3MHU 04-25 17:29
PROVIDERS: ADMIT Psychiatry & Neurology Psychiatry; ATTEND Psychiatry & Neurology Psychiatry
DX: F31.30 Bipolar disorder, current episode depressed, mild or moderate severity, unspecified (principal); E11.9 Type 2 diabetes mellitus without complications; F43.10 Post-traumatic stress disorder, unspecified; F41.0 Panic disorder [episodic paroxysmal anxiety]; E78.5 Hyperlipidemia, unspecified; I10 Essential (primary) hypertension; J45.909 Unspecified asthma, uncomplicated; R25.1 Tremor, unspecified; M79.603 Pain in arm, unspecified; E66.9 Obesity, unspecified; Z68.37 Body mass index [BMI] 37.0-37.9, adult; Z79.4 Long term (current) use of insulin; Z79.899 Other long term (current) drug therapy; Z91.19 Patient's noncompliance with other medical treatment and regimen; Z90.49 Acquired absence of other specified parts of digestive tract; Z87.891 Personal history of nicotine dependence; Z86.018 Personal history of other benign neoplasm; Z86.14 Personal history of Methicillin resistant Staphylococcus aureus infection; Z96.653 Presence of artificial knee joint, bilateral; Z88.1 Allergy status to other antibiotic agents; Z88.0 Allergy status to penicillin; Z88.2 Allergy status to sulfonamides; Z88.8 Allergy status to other drugs, medicaments and biological substances; Z81.8 Family history of other mental and behavioral disorders; Z83.3 Family history of diabetes mellitus; Z82.49 Family history of ischemic heart disease and other diseases of the circulatory system; Z83.49 Family history of other endocrine, nutritional and metabolic diseases
CPT/HCPCS: 36415; 71046; 80053; 80061; 80306; 81001; 82075; 82550; 82553; 83036; 84443; 84484; 85025; 93005; 99285

== ENCOUNTER → 2018-12-11 | Outpatient (CLI) | payer MEDICARE, MEDICAID ==
[2018-12-11 13:14] LABS: HCT 42.7 % (34.0-46.0); HGB 13.7 gm/dL (11.4-16.0); MCH 28.1 pg (25.0-35.0); MCHC 32.1 g/dL (31.0-37.0); MCV 87.6 fL (80.0-100.0); Mean Platelet Volume 7.5; Platelet Count 367 k/uL (150-450); RBC 4.88 m/uL (3.80-5.40); RDW 15.1 % (11.5-15.5); WBC 11.4 k/uL (3.8-10.6)
[2018-12-11 13:25] LABS: INR 0.9 (<1.2); Prothrombin Time 9.8 sec (9.0-12.0)
[2018-12-11 19:02] LABS: African American GFR (CKD) 119.6 (60.0-200.0); Anion Gap 11.9 mmol/L (4.00-12.00); BUN/Creat Ratio 17.14 Ratio (12.00-20.00); Calcium 9.4 mg/dL (8.7-10.3); Carbon Dioxide 25.1 mmol/L (21.6-31.8); Potassium 4.3 mmol/L (3.5-5.5)
== END | disposition home or self-care (01) ==
LOC: LABWHC1 12:08
PROVIDERS: ATTEND Nurse Practitioner Women's Health
DX: Z01.810 Encounter for preprocedural cardiovascular examination (principal); M25.562 Pain in left knee
CPT/HCPCS: 36415; 80048; 85027; 85610; 85730; 93005

== ENCOUNTER 2018-12-20 11:34 | Emergency (ER) | payer MEDICARE, OTHER ==
[2018-12-20 11:39] VITALS: BP 155/88; PULSE 85; RESP 18; TEMP 98.3
[2018-12-20] MEDS ORDERED: KETOROLAC 60 MG/2 ML VIAL IM STA (12:02)
--- NOTE | 2018-12-20 12:12 | ED ---
Upper Extremity HPI - General Chief Complaint: Extremity Injury, Upper Stated Complaint: left shoulder injury Time Seen by Provider: 12/20/18 11:47 Source: patient Mode of arrival: ambulatory Limitations: no limitations - History of Present Illness Initial Comments: Patient is a 48-year-old female presenting to emergency Department with complaints of left shoulder pain 5 days. Patient denies any falls or trauma to the left shoulder. Patient states she woke up 5 days ago and had trouble moving her left shoulder. Patient states the pain has been increasing and now she is barely able to move her shoulder all. Patient is complaining of pain, left upper neck radiating down to the shoulder blade, to the left deltoid, down to the left arm. Patient states she's been trying Aleve for the pain and is not helping. She states she takes Vinson's for other pain that she has and those are not helping either. No other complaints at this time. - Related Data Home Medications Medication Instructions Recorded Confirmed Losartan/Hydrochlorothiazide 1 tab PO DAILY 11/06/13 04/24/18 [Losartan-Hctz 100-25 mg Tab] Atorvastatin [Lipitor] 20 mg PO HS 06/09/17 04/24/18 Baclofen [Lioresal] 10 mg PO BID 06/09/17 04/24/18 HYDROcodone/APAP 7.5-325MG [Vinson 1 tab PO TID PRN 06/09/17 04/24/18 7.5-325] amLODIPine [Norvasc] 10 mg PO DAILY 06/09/17 04/24/18 Butalb/Acetaminophen/Caffeine 1 tab PO Q4HR PRN 04/27/18 04/27/18 [Fioricet 50-325-40] Previous Rx's Medication Instructions Recorded Butalb/APAP/Caff 50-325-40Mg 1 each PO Q4HR PRN 30 Days #10 tab 04/28/18 [Fioricet 50-325-40] Paliperidone [Invega] 6 mg PO 2100 30 Days #30 tab.er.24 04/28/18 Pramipexole [Mirapex] 1 mg PO 2100 30 Days #30 tab 04/28/18 cloNIDine HCL [Catapres] 0.2 mg PO TID 30 Days #90 tab 04/28/18 lamoTRIgine [LaMICtal] 100 mg PO 2100 30 Days #30 tab 04/28/18 predniSONE 20 mg PO DAILY 5 Days #5 tab 12/20/18 Allergies Allergy/AdvReac Type Severity Reaction Status Date / Time levofloxacin [From Levaquin] Allergy Anaphylaxis Verified 12/20/18 11:39 methylprednisolone sodium Allergy Unknown Verified 12/20/18 11:39 succinate [From Solu-Medrol] Penicillins Allergy Swelling Verified 12/20/18 11:39 sulfamethoxazole Allergy Swelling Verified 12/20/18 11:39 [From Bactrim] trimethoprim [From Bactrim] Allergy Swelling Verified 12/20/18 11:39 Review of Systems ROS Statement: Those systems with pertinent positive or pertinent negative responses have been documented in the HPI. ROS Other: All systems not noted in ROS Statement are negative. Past Medical History Past Medical History: Asthma, Diabetes Mellitus, Hyperlipidemia, Hypertension Additional Past Medical History / Comment(s): 04-25-18 pt wants a flu vaccine while here. pmh includes:ptsd, anxiety, panic attacks, bipolar depression. as child has ear infections /rupture ear drum has scarring and some mild loss of hearing. History of Any Multi-Drug Resistant Organisms: MRSA Date of last positivie culture/infection: 2012 MDRO Source:: right knee Past Surgical History: Cholecystectomy, Orthopedic Surgery Additional Past Surgical History / Comment(s): thoracotomy age 22 for mass in left lung-benign, toby foot sx for bone spurs, toby knee scopes, 2 rt knee replacements, 1 lt knee replacement, rt shoulder scope, rt shoulder rebilt- removed part of clavicle Past Anesthesia/Blood Transfusion Reactions: Motion Sickness Additional Past Anesthesia/Blood Transfusion Reaction / Comment(s): clausterphobia. pt stated never had a blood transfusion Past Psychological History: Anxiety, Bipolar, Depression, Panic Disorder Smoking Status: Former smoker Past Alcohol Use History: Rare Past Drug Use History: None Reported - Past Family History Mother Family Medical History: Diabetes Mellitus, Hypertension Additional Family Medical History / Comment(s): hemochromatosis. "heart problems" Father Family Medical History: Diabetes Mellitus, Hyperlipidemia, Hypertension Additional Family Medical History / Comment(s): depression, anxiety General Exam - General Exam Comments Initial Comments: GENERAL: Well-appearing, well-nourished and in no acute distress. HEAD: Atraumatic, normocephalic. EYES: Pupils equal round and reactive to light, extraocular movements intact, sclera anicteric, conjunctiva are normal. ENT: TMs normal, nares patent, oropharynx clear without exudates. Moist mucous membranes. NECK: Normal range of motion, supple without lymphadenopathy or JVD. LUNGS: Breath sounds clear to auscultation bilaterally and equal. No wheezes rales or rhonchi. HEART: Regular rate and rhythm without murmurs, rubs or gallops. ABDOMEN: Soft, nontender, normoactive bowel sounds. No guarding, no rebound. No masses appreciated. : Deferred NEUROLOGICAL: Cranial nerves II through XII grossly intact. Normal speech, normal gait. PSYCH: Normal mood, normal affect. SKIN: Warm, Dry, normal turgor, no rashes or lesions noted. Limitations: no limitations Left General: Present: normal inspection Shoulder Exam: Present: tenderness. Absent: full ROM (Patient has decreased and painful range of motion in all directions), swelling, ecchymosis, deformity, dislocation, erythema Upper Arm exam: Present: tenderness. Absent: swelling, ecchymosis, erythema Elbow exam: Present: full ROM. Absent: tenderness, swelling Neuro motor exam: Present: wrist extension intact Neurosensory exam: Present: radial nerve intact, ulnar nerve intact, median nerve intact Vascular: Present: normal capillary refill Course Vital Signs 12/20/18 11:37 Temperature 98.3 F Pulse Rate 85 Respiratory 18 Rate Blood Pressure 155/88 O2 Sat by Pulse 97 Oximetry Medical Decision Making - Medical Decision Making Patient is a 48-year-old female with complaints of left shoulder pain 5 days. Patient denies any injuries or trauma to the shoulder. Patient states she woke up and was unable to move the shoulder and the pain has been increasing. On exam patient has limited range of motion of the left shoulder secondary to pain. Patient is tender in the left trapezius from the neck all the way down to mid back level and across the left shoulder blade. Patient is is guarding the left shoulder and not wanting to move it at all. X-rays of the left shoulder revealed no acute fractures or dislocations. There is some mild spurring. Patient was given a short course of muscle relaxers and a sling and will follow up with orthopedics. Patient is in agreement with this plan of care. Return parameters were discussed with patient. Case is discussed with Dr. Ortiz. Disposition Clinical Impression: Left shoulder pain, Strain of left trapezius muscle Disposition: HOME SELF-CARE Condition: Stable Instructions (If sedation given, give patient instructions): Shoulder Pain (ED) Additional Instructions: Please return to the Emergency Department if symptoms worsen or any other concerns. Follow-up with orthopedics as discussed Prescriptions: predniSONE 20 mg PO DAILY 5 Days #5 tab Is patient prescribed a controlled substance at d/c from ED?: No Referrals: Sebastian Reyez MD [Primary Care Provider] - 1-2 days
--- NOTE | 2018-12-20 12:54 | XR ---
EXAMINATION TYPE: XR shoulder complete LT DATE OF EXAM: 12/20/2018 CLINICAL HISTORY: Left shoulder pain. TECHNIQUE: Three views of the left shoulder are obtained. COMPARISON: None. FINDINGS: There is no acute fracture/dislocation evident in the left shoulder. Ddjm-cy-mflkffha narr owing at acromioclavicular joint is present with mild inferior spurring. There is suggestion of old f racture deformity superior lateral humeral head. No corresponding bony Bankart lesion clearly seen. C orrelate clinically for prior history of anterior dislocation. Glenohumeral joint is fairly well main tained. The visualized ribs are intact and unremarkable. IMPRESSION: As above.
== END 2018-12-20 13:37 | disposition home or self-care (01) ==
LOC: EC 11:34
DX: S46.812A Strain of other muscles, fascia and tendons at shoulder and upper arm level, left arm, initial encounter (principal); I10 Essential (primary) hypertension; E78.5 Hyperlipidemia, unspecified; Z79.899 Other long term (current) drug therapy; Z88.1 Allergy status to other antibiotic agents; Z88.0 Allergy status to penicillin; Z88.2 Allergy status to sulfonamides; Z88.8 Allergy status to other drugs, medicaments and biological substances; Z96.653 Presence of artificial knee joint, bilateral; X58.XXXA Exposure to other specified factors, initial encounter
CPT/HCPCS: 73030; 99283; 96372; J1885

== ENCOUNTER 2019-09-12 19:10 | Inpatient (IN) | payer MEDICARE, OTHER ==
[2019-09-12] MEDS ORDERED: MORPHINE SULFATE 4 MG/ML SYRINGE IV STA (19:39)
[2019-09-12] MEDS ORDERED: ONDANSETRON 4 MG/2 ML VIAL IVP STA (19:39)
[2019-09-12] MEDS ORDERED: SODIUM CHLORIDE 0.9% 1,000 ML IV STA ×2 (19:39)
--- NOTE | 2019-09-12 19:41 | ED ---
Abdominal Pain HPI - General Chief Complaint: Abdominal Pain Stated Complaint: Abd pain Time Seen by Provider: 09/12/19 19:17 Source: patient, EMS, RN notes reviewed, old records reviewed Mode of arrival: EMS Limitations: no limitations - History of Present Illness Initial Comments: This is a 41-year-old female DF for evaluation patient Dese for, left pelvic pain flank pain and abdominal pain, patient states she has history of kidney stones and she reports his office with a kidney stone. Patient was seen by her primary care sent for outpatient computed tomography scan earlier today. Patient did go home but the pain does continues to increase with nausea and just severe stabbing sharp abdominal pain. No vomiting, no diarrhea. No vaginal bleeding or urinary symptoms. Patient denying any fevers. She is not taking anything currently at home for pain. She called primary care who did look at a CAT scan center to ER for further evaluation MD Complaint: abdominal pain, other (Patient has known outpatient abnormal CT showing significantly large ovarian cyst) -: hour(s) Location: suprapubic Radiation: suprapubic Migration to: no migration Severity: severe Severity scale (1-10): 9 Quality: stabbing, fullness Consistency: constant Improves With: nothing Worsens With: nothing Associated Symptoms: nausea - Related Data Home Medications Medication Instructions Recorded Confirmed Losartan/Hydrochlorothiazide 1 tab PO DAILY 11/06/13 09/14/19 [Losartan-Hctz 100-25 mg Tab] Atorvastatin [Lipitor] 20 mg PO HS 06/09/17 09/14/19 HYDROcodone/APAP 7.5-325MG [[place] 1 tab PO TID PRN 06/09/17 09/14/19 7.5-325] amLODIPine [Norvasc] 10 mg PO DAILY 06/09/17 09/14/19 Butalb/Acetaminophen/Caffeine 1 tab PO Q4HR PRN 04/27/18 09/14/19 [Fioricet 50-325-40] Previous Rx's Medication Instructions Recorded Butalb/APAP/Caff 50-325-40Mg 1 each PO Q4HR PRN 30 Days #10 tab 04/28/18 [Fioricet 50-325-40] Pramipexole [Mirapex] 1 mg PO 2100 30 Days #30 tab 04/28/18 lamoTRIgine [LaMICtal] 100 mg PO 2100 30 Days #30 tab 11/16/18 HYDROcodone/APAP 7.5-325MG [[place] 1 each PO Q6H PRN #12 tab 09/14/19 7.5-325] INSULIN LISPRO (HumaLOG) [humaLOG] 7 unit SQ ACHS #1 vial 09/14/19 Allergies Allergy/AdvReac Type Severity Reaction Status Date / Time levofloxacin [From Levaquin] Allergy Anaphylaxis Verified 09/12/19 19:20 methylprednisolone sodium Allergy Unknown Verified 09/12/19 19:20 succinate [From Solu-Medrol] Penicillins Allergy Swelling Verified 09/12/19 19:20 sulfamethoxazole Allergy Swelling Verified 09/12/19 19:20 [From Bactrim] trimethoprim [From Bactrim] Allergy Swelling Verified 09/12/19 19:20 Review of Systems ROS Statement: Those systems with pertinent positive or pertinent negative responses have been documented in the HPI. ROS Other: All systems not noted in ROS Statement are negative. Past Medical History Past Medical History: Asthma, Diabetes Mellitus, Hyperlipidemia, Hypertension Additional Past Medical History / Comment(s): 04-25-18 pt wants a flu vaccine while here. pmh includes:ptsd, anxiety, panic attacks, bipolar depression. as child has ear infections /rupture ear drum has scarring and some mild loss of hearing. History of Any Multi-Drug Resistant Organisms: MRSA Date of last positivie culture/infection: 2012 MDRO Source:: right knee Past Surgical History: Cholecystectomy, Orthopedic Surgery Additional Past Surgical History / Comment(s): thoracotomy age 22 for mass in left lung-benign, toby foot sx for bone spurs, toby knee scopes, 2 rt knee replacements, 1 lt knee replacement, rt shoulder scope, rt shoulder rebilt- removed part of clavicle Past Anesthesia/Blood Transfusion Reactions: Motion Sickness Additional Past Anesthesia/Blood Transfusion Reaction / Comment(s): clausterphobia. pt stated never had a blood transfusion Past Psychological History: Anxiety, Bipolar, Depression, Panic Disorder Smoking Status: Former smoker Past Alcohol Use History: None Reported Past Drug Use History: None Reported - Past Family History Mother Family Medical History: Diabetes Mellitus, Hypertension Additional Family Medical History / Comment(s): hemochromatosis. "heart problems" Father Family Medical History: Diabetes Mellitus, Hyperlipidemia, Hypertension Additional Family Medical History / Comment(s): depression, anxiety General Exam Limitations: no limitations General appearance: alert, in no apparent distress, in distress, obese Head exam: Present: atraumatic, normocephalic, normal inspection Eye exam: Present: normal appearance, PERRL, EOMI. Absent: scleral icterus, conjunctival injection, periorbital swelling ENT exam: Present: normal exam, mucous membranes moist Neck exam: Present: normal inspection. Absent: tenderness, meningismus, lymphadenopathy Respiratory exam: Present: normal lung sounds bilaterally. Absent: respiratory distress, wheezes, rales, rhonchi, stridor Cardiovascular Exam: Present: normal rhythm, tachycardia, normal heart sounds. Absent: systolic murmur, diastolic murmur, rubs, gallop, clicks GI/Abdominal exam: Present: soft, tenderness (Suprapubic), normal bowel sounds. Absent: distended, guarding, rebound, rigid Extremities exam: Present: normal inspection, full ROM, normal capillary refill. Absent: tenderness, pedal edema, joint swelling, calf tenderness Back exam: Present: normal inspection Neurological exam: Present: alert, oriented X3, CN II-XII intact Psychiatric exam: Present: normal affect, normal mood Skin exam: Present: warm, dry, intact, normal color. Absent: rash Course Vital Signs 09/12/19 09/12/19 09/12/19 19:13 20:48 22:03 Temperature 98.1 F 98.1 F Pulse Rate 120 H 113 H 110 H Respiratory 28 H 18 18 Rate Blood Pressure 145/108 119/67 119/60 O2 Sat by Pulse 97 98 96 Oximetry 09/12/19 09/13/19 23:06 00:32 Temperature 98 F Pulse Rate 118 H 105 H Respiratory 18 18 Rate Blood Pressure 117/75 134/79 O2 Sat by Pulse 96 98 Oximetry - Reevaluation(s) Reevaluation #1: 09/12/19 23:32 Medical record prior imaging is reviewed Patient informed of findings here in the ER pain is currently controlled Dr. Spears did evaluate patient in emergency department to take operating room - Consultations Consultation #1: Spoke with Dr. Reyez recommends OB to see patient aware patient's findings Consultation #2: Spoke with Dr. Spears who is patient's OB and on-call tonight, his coming to emergency department to evaluate patient Medical Decision Making - Medical Decision Making 41 female DF for evaluation patient presents today for evaluation of abdominal pain headache significant cystic 14 cm mass in her abdomen patient taken to operating room secondary to intractable pain by Dr. Spears, patient's pain is controlled here in the ER - Lab Data Result diagrams: 09/14/19 06:08 09/12/19 19:26 Lab Results 09/12/19 09/12/19 09/12/19 Range/Units 19:26 19:26 19:26 WBC 14.8 H (3.8-10.6) k/uL RBC 4.90 (3.80-5.40) m/uL Hgb 13.3 (11.4-16.0) gm/dL Hct 41.1 (34.0-46.0) % MCV 83.7 (80.0-100.0) fL MCH 27.2 (25.0-35.0) pg MCHC 32.5 (31.0-37.0) g/dL RDW 14.5 (11.5-15.5) % Plt Count 337 (150-450) k/uL Neutrophils % 88 % Lymphocytes % 9 % Monocytes % 3 % Eosinophils % 0 % Basophils % 0 % Neutrophils # 13.0 H (1.3-7.7) k/uL Lymphocytes # 1.3 (1.0-4.8) k/uL Monocytes # 0.4 (0-1.0) k/uL Eosinophils # 0.0 (0-0.7) k/uL Basophils # 0.0 (0-0.2) k/uL PT 10.3 (9.0-12.0) sec INR 1.0 (<1.2) APTT 23.1 (22.0-30.0) sec Sodium 135 L (137-145) mmol/L Potassium 3.8 (3.5-5.1) mmol/L Chloride 100 (98-107) mmol/L Carbon Dioxide 24 (22-30) mmol/L Anion Gap 11 mmol/L BUN 16 (7-17) mg/dL Creatinine 0.46 L (0.52-1.04) mg/dL Est GFR (CKD-EPI)AfAm >90 (>60 ml/min/1.73 sqM) Est GFR (CKD-EPI)NonAf >90 (>60 ml/min/1.73 sqM) Glucose 148 H (74-99) mg/dL POC Glucose (mg/dL) (75-99) mg/dL POC Glu Linker Up ID Lactic Ac Sepsis Rflx Plasma Lactic Acid Bal (0.7-2.0) mmol/L Calcium 9.3 (8.4-10.2) mg/dL Total Bilirubin 0.4 (0.2-1.3) mg/dL AST 26 (14-36) U/L ALT 28 (4-34) U/L Alkaline Phosphatase 96 (38-126) U/L Total Protein 7.5 (6.3-8.2) g/dL Albumin 4.2 (3.5-5.0) g/dL Amylase 49 (30-110) U/L Lipase 46 (23-300) U/L Urine Color Urine Appearance (Clear) Urine pH (5.0-8.0) Ur Specific [place] (1.001-1.035) Urine Protein (Negative) Urine Glucose (UA) (Negative) Urine Ketones (Negative) Urine Blood (Negative) Urine Nitrite (Negative) Urine Bilirubin (Negative) Urine Urobilinogen (<2.0) mg/dL Ur Leukocyte Esterase (Negative) Urine HCG, Qual (Not Detectd) 09/12/19 09/12/19 09/12/19 Range/Units 19:26 20:09 20:24 WBC (3.8-10.6) k/uL RBC (3.80-5.40) m/uL Hgb (11.4-16.0) gm/dL Hct (34.0-46.0) % MCV (80.0-100.0) fL MCH (25.0-35.0) pg MCHC (31.0-37.0) g/dL RDW (11.5-15.5) % Plt Count (150-450) k/uL Neutrophils % % Lymphocytes % % Monocytes % % Eosinophils % % Basophils % % Neutrophils # (1.3-7.7) k/uL Lymphocytes # (1.0-4.8) k/uL Monocytes # (0-1.0) k/uL Eosinophils # (0-0.7) k/uL Basophils # (0-0.2) k/uL PT (9.0-12.0) sec INR (<1.2) APTT (22.0-30.0) sec Sodium (137-145) mmol/L Potassium (3.5-5.1) mmol/L Chloride (98-107) mmol/L Carbon Dioxide (22-30) mmol/L Anion Gap mmol/L BUN (7-17) mg/dL Creatinine (0.52-1.04) mg/dL Est GFR (CKD-EPI)AfAm (>60 ml/min/1.73 sqM) Est GFR (CKD-EPI)NonAf (>60 ml/min/1.73 sqM) Glucose (74-99) mg/dL POC Glucose (mg/dL) (75-99) mg/dL POC Glu Linker Up ID Lactic Ac Sepsis Rflx Y Plasma Lactic Acid Bal 3.8 H* (0.7-2.0) mmol/L Calcium (8.4-10.2) mg/dL Total Bilirubin (0.2-1.3) mg/dL AST (14-36) U/L ALT (4-34) U/L Alkaline Phosphatase (38-126) U/L Total Protein (6.3-8.2) g/dL Albumin (3.5-5.0) g/dL Amylase (30-110) U/L Lipase (23-300) U/L Urine Color Yellow Urine Appearance Clear (Clear) Urine pH 6.5 (5.0-8.0) Ur Specific [place] 1.018 (1.001-1.035) Urine Protein Trace H (Negative) Urine Glucose (UA) Negative (Negative) Urine Ketones 1+ H (Negative) Urine Blood Negative (Negative) Urine Nitrite Negative (Negative) Urine Bilirubin Negative (Negative) Urine Urobilinogen <2.0 (<2.0) mg/dL Ur Leukocyte Esterase Negative (Negative) Urine HCG, Qual (Not Detectd) 09/12/19 09/12/19 09/13/19 Range/Units 20:24 23:50 00:37 WBC (3.8-10.6) k/uL RBC (3.80-5.40) m/uL Hgb (11.4-16.0) gm/dL Hct (34.0-46.0) % MCV (80.0-100.0) fL MCH (25.0-35.0) pg MCHC (31.0-37.0) g/dL RDW (11.5-15.5) % Plt Count (150-450) k/uL Neutrophils % % Lymphocytes % % Monocytes % % Eosinophils % % Basophils % % Neutrophils # (1.3-7.7) k/uL Lymphocytes # (1.0-4.8) k/uL Monocytes # (0-1.0) k/uL Eosinophils # (0-0.7) k/uL Basophils # (0-0.2) k/uL PT (9.0-12.0) sec INR (<1.2) APTT (22.0-30.0) sec Sodium (137-145) mmol/L Potassium (3.5-5.1) mmol/L Chloride (98-107) mmol/L Carbon Dioxide (22-30) mmol/L Anion Gap mmol/L BUN (7-17) mg/dL Creatinine (0.52-1.04) mg/dL Est GFR (CKD-EPI)AfAm (>60 ml/min/1.73 sqM) Est GFR (CKD-EPI)NonAf (>60 ml/min/1.73 sqM) Glucose (74-99) mg/dL POC Glucose (mg/dL) (75-99) mg/dL POC Glu Linker Up ID Lactic Ac Sepsis Rflx Y Plasma Lactic Acid Bal 2.6 H* (0.7-2.0) mmol/L Calcium (8.4-10.2) mg/dL Total Bilirubin (0.2-1.3) mg/dL AST (14-36) U/L ALT (4-34) U/L Alkaline Phosphatase (38-126) U/L Total Protein (6.3-8.2) g/dL Albumin (3.5-5.0) g/dL Amylase (30-110) U/L Lipase (23-300) U/L Urine Color Urine Appearance (Clear) Urine pH (5.0-8.0) Ur Specific [place] (1.001-1.035) Urine Protein (Negative) Urine Glucose (UA) (Negative) Urine Ketones (Negative) Urine Blood (Negative) Urine Nitrite (Negative) Urine Bilirubin (Negative) Urine Urobilinogen (<2.0) mg/dL Ur Leukocyte Esterase (Negative) Urine HCG, Qual Not Detected (Not Detectd) 09/13/19 09/13/1909/12/20 Range/Units 03:05 03:58 05:01 WBC (3.8-10.6) k/uL RBC (3.80-5.40) m/uL Hgb (11.4-16.0) gm/dL Hct (34.0-46.0) % MCV (80.0-100.0) fL MCH (25.0-35.0) pg MCHC (31.0-37.0) g/dL RDW (11.5-15.5) % Plt Count (150-450) k/uL Neutrophils % % Lymphocytes % % Monocytes % % Eosinophils % % Basophils % % Neutrophils # (1.3-7.7) k/uL Lymphocytes # (1.0-4.8) k/uL Monocytes # (0-1.0) k/uL Eosinophils # (0-0.7) k/uL Basophils # (0-0.2) k/uL PT (9.0-12.0) sec INR (<1.2) APTT (22.0-30.0) sec Sodium (137-145) mmol/L Potassium (3.5-5.1) mmol/L Chloride (98-107) mmol/L Carbon Dioxide (22-30) mmol/L Anion Gap mmol/L BUN (7-17) mg/dL Creatinine (0.52-1.04) mg/dL Est GFR (CKD-EPI)AfAm (>60 ml/min/1.73 sqM) Est GFR (CKD-EPI)NonAf (>60 ml/min/1.73 sqM) Glucose (74-99) mg/dL POC Glucose (mg/dL) 138 H (75-99) mg/dL POC Glu Linker Up ID Carmela, Rachele Lactic Ac Sepsis Rflx Y Plasma Lactic Acid Bal 2.7 H* (0.7-2.0) mmol/L Calcium (8.4-10.2) mg/dL Total Bilirubin (0.2-1.3) mg/dL AST (14-36) U/L ALT (4-34) U/L Alkaline Phosphatase (38-126) U/L Total Protein (6.3-8.2) g/dL Albumin (3.5-5.0) g/dL Amylase (30-110) U/L Lipase (23-300) U/L Urine Color Urine Appearance (Clear) Urine pH (5.0-8.0) Ur Specific [place] (1.001-1.035) Urine Protein (Negative) Urine Glucose (UA) (Negative) Urine Ketones (Negative) Urine Blood (Negative) Urine Nitrite (Negative) Urine Bilirubin (Negative) Urine Urobilinogen (<2.0) mg/dL Ur Leukocyte Esterase (Negative) Urine HCG, Qual (Not Detectd) 09/13/19 Range/Units 07:26 WBC (3.8-10.6) k/uL RBC (3.80-5.40) m/uL Hgb (11.4-16.0) gm/dL Hct (34.0-46.0) % MCV (80.0-100.0) fL MCH (25.0-35.0) pg MCHC (31.0-37.0) g/dL RDW (11.5-15.5) % Plt Count (150-450) k/uL Neutrophils % % Lymphocytes % % Monocytes % % Eosinophils % % Basophils % % Neutrophils # (1.3-7.7) k/uL Lymphocytes # (1.0-4.8) k/uL Monocytes # (0-1.0) k/uL Eosinophils # (0-0.7) k/uL Basophils # (0-0.2) k/uL PT (9.0-12.0) sec INR (<1.2) APTT (22.0-30.0) sec Sodium (137-145) mmol/L Potassium (3.5-5.1) mmol/L Chloride (98-107) mmol/L Carbon Dioxide (22-30) mmol/L Anion Gap mmol/L BUN (7-17) mg/dL Creatinine (0.52-1.04) mg/dL Est GFR (CKD-EPI)AfAm (>60 ml/min/1.73 sqM) Est GFR (CKD-EPI)NonAf (>60 ml/min/1.73 sqM) Glucose (74-99) mg/dL POC Glucose (mg/dL) 108 H (75-99) mg/dL POC Glu Linker Up ID BiesselKathya Lactic Ac Sepsis Rflx Plasma Lactic Acid Bal (0.7-2.0) mmol/L Calcium (8.4-10.2) mg/dL Total Bilirubin (0.2-1.3) mg/dL AST (14-36) U/L ALT (4-34) U/L Alkaline Phosphatase (38-126) U/L Total Protein (6.3-8.2) g/dL Albumin (3.5-5.0) g/dL Amylase (30-110) U/L Lipase (23-300) U/L Urine Color Urine Appearance (Clear) Urine pH (5.0-8.0) Ur Specific [place] (1.001-1.035) Urine Protein (Negative) Urine Glucose (UA) (Negative) Urine Ketones (Negative) Urine Blood (Negative) Urine Nitrite (Negative) Urine Bilirubin (Negative) Urine Urobilinogen (<2.0) mg/dL Ur Leukocyte Esterase (Negative) Urine HCG, Qual (Not Detectd) - Radiology Data Radiology results: report reviewed (CT of abdomen and pelvis does show a large cystic pelvic mass, This is also seen on US pelvis), image reviewed Disposition Clinical Impression: Pelvic mass, Suprapubic pain, Ovarian cyst, Acute pelvic pain, female Disposition: ADMITTED IP TO THIS HOSP Condition: Fair Is patient prescribed a controlled substance at d/c from ED?: No
[2019-09-12 19:59] LABS: Basophils % (A) 0 %; Eosinophils % (A) 0 %; HCT 41.1 % (34.0-46.0); HGB 13.3 gm/dL (11.4-16.0); Lymphocytes # (A) 1.3 k/uL (1.0-4.8); Lymphocytes % (A) 9 %; MCH 27.2 pg (25.0-35.0); MCHC 32.5 g/dL (31.0-37.0); MCV 83.7 fL (80.0-100.0); Mean Platelet Volume 7.2; Monocytes # (A) 0.4 k/uL (0-1.0); Monocytes % (A) 3 %; Neutrophils % (A) 88 %; Platelet Count 337 k/uL (150-450); RDW 14.5 % (11.5-15.5); WBC 14.8 k/uL (3.8-10.6)
[2019-09-12 20:02] LABS: AST 26 U/L (14-36); African American GFR (CKD) >90 (>60 ml/min/1.73 sqM); Albumin 4.2 g/dL (3.5-5.0); Alkaline Phosphatase 96 U/L (38-126); Amylase 49 U/L (30-110); Anion Gap 11 mmol/L; Blood Urea Nitrogen 16 mg/dL (7-17); Calcium 9.3 mg/dL (8.4-10.2); Carbon Dioxide 24 mmol/L (22-30); Chloride 100 mmol/L (98-107); Glucose 148 mg/dL (74-99); Non-African American GFR(CKD) >90 (>60 ml/min/1.73 sqM); Potassium 3.8 mmol/L (3.5-5.1); Sodium 135 mmol/L (137-145); Total Bilirubin 0.4 mg/dL (0.2-1.3); Total Protein 7.5 g/dL (6.3-8.2)
[2019-09-12 20:08] LABS: ALT 28 U/L (4-34)
[2019-09-12 20:15] LABS: Partial Thromboplastin Time 23.1 sec (22.0-30.0); Prothrombin Time 10.3 sec (9.0-12.0)
[2019-09-12 20:32] LABS: Appearance,Urine Clear (Clear); Bilirubin,Urine Negative (Negative); Blood,Urine Negative (Negative); Color,Urine Yellow; Glucose,Urine (UA) Negative (Negative); Ketones,Urine 1+ (Negative); Leukocyte Esterase,Urine Negative (Negative); Nitrite,Urine Negative (Negative); PH, Urine 6.5 (5.0-8.0); Protein,Urine Trace (Negative); Specific Gravity,Urine 1.018 (1.001-1.035); Urobilinogen,Urine <2.0 mg/dL (<2.0)
[2019-09-12] MEDS ORDERED: HYDROmorphone 1 MG/ML 1 ML SYRINGE IVP STA ×2 (21:51→22:38)
--- NOTE | 2019-09-12 22:31 | CT ---
EXAMINATION TYPE: CT abdomen pelvis w con DATE OF EXAM: 09/12/2019 COMPARISON: Today HISTORY: Left lower quadrant and flank pain. CT DLP: 2429 mGycm Automated exposure control for dose reduction was used. CONTRAST: Performed with IV Contrast, patient injected with 100 mL of Isovue 300. There is mild subsegmental atelectasis at the left lung base. Heart size is normal. There is no peric ardial effusion. There is increased soft tissue density involving the left posterior hemidiaphragm adjacent to the gas tric fundus. This could be an unusual left adrenal mass. This area measures 7.2 x 2.6 cm. Right adren al gland appears normal. There is satisfactory contrast opacification of the kidneys. There is 1 cm c ortical cyst lower pole left kidney. There is 2 mm calculus interpolar right kidney. spleen pancreas appear normal. Liver shows no focal defect. There is a large liver that measures 23.5 cm. There are c lips from cholecystectomy. Stomach is intact. The bile ducts are not dilated. There is no retroperitoneal adenopathy. Ureters are not dilated. Bladder distends smoothly. There is 13.5 cm thin-walled cystic pelvic mass above the uterine fundus. Uterus is anteverted. This could be arising from the left ovary. There are a few right-sided iliac lymph nodes that measure up to 1 cm. There is no free fluid in the pelvis. There is no mesenteric edema. There is no ascites or free air. Appendix is not seen. There is no sign of thickened appendix. Lumbar spine is intact. There is slight anterior wedging of T12 and T11 that appears old. The bony pe lvis is intact. There is no inguinal hernia. IMPRESSION: Large thin wall nonenhancing cystic pelvic mass is probably left ovarian cyst. Hepatomegaly. Mass involving the posterior left diaphragm adjacent to the left adrenal gland could be an unusual ad renal mass.
--- NOTE | 2019-09-12 22:59 | US ---
EXAMINATION TYPE: US transvaginal DATE OF EXAM: 09/12/2019 COMPARISON: CT CLINICAL HISTORY: pain. Pelvic pain x 1 day. Irregular periods. . TECHNIQUE: Transvaginal (TV). Very limited transabdominal sonographic images were taken at end of e xam. Date of LMP: 08/31/2019 EXAM MEASUREMENTS: Uterus: 9.5 x 6.0 x 6.1 cm Endometrial Stripe: 1.20 cm Right Ovary: Not visualized with certainty. Left Ovary: Not visualized. 1. Uterus: Anteverted Subcentimeter anechoic areas seen in the cervix. Uterus appears heterogeneous. Indistinct hypoechoic areas seen. Largest fundally measures: 1.2 x 1.1 x 1.2 cm. 2. Endometrium: Measures 1.20 cm. 3. Right Ovary: Not seen with certainty. Area measured transabdominally in the right adnexa that is mentioned below is of unknown origin. 4. Left Ovary: Not visualized. 5. Bilateral Adnexa: Not well evaluated due to patient's severe pain level. Transabdominal scan at e nd of exam showed a 15.5 x 12.5 x 10.1 cm mostly anechoic area with hypoechoic periphery in the right adnexa. Doppler waveform evaluation is limited and incomplete due to patient's pain level. Patient r equested to end the exam before complete evaluation of this area was performed. 6. Posterior cul-de-sac: Appears wnl. IMPRESSION: Large thin-walled cystic pelvic mass. This probably arising from the ovary. It is not clear which radha e. Large uterus probably with fibroids. No endometrial mass. No free fluid.
[2019-09-13] MEDS ORDERED: NALOXONE 0.4 MG/ML 1 ML VIAL IV PRN (00:08)
[2019-09-13] MEDS ORDERED: CLINDAMYCIN 900 MG in DEXTROSE 5% IN WATER 50 ML IVPB STA ×2 (00:14)
--- NOTE | 2019-09-13 00:34 | P.HPOB ---
History of Present Illness H&P Date: 09/13/19 Chief Complaint: Acute lower abdominal pain This patient is a 49-year-old multiparous patient who developed severe left- sided lower abdominal pain earlier today. Patient was seen by her PCP and had a CAT scan done which apparently showed a 13.5 cm left ovarian cystic mass and also there was a non-distinct 7.2 cm left post-hemidiaphragmatic questionable left adrenal mass. Patient states pain became markedly worse throughout the day and then she was taken to the emergency department. Emergency department vaginal ultrasound shows 15 cm mostly cystic area of the left adnexal area. There is no free fluid. Patient had a severe pains had multiple doses of narcotics without relief. 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 Review of Systems Genitourinary: Reports as per HPI, Reports pelvic pain Past Medical History Past Medical History: Asthma, Diabetes Mellitus, Hyperlipidemia, Hypertension Additional Past Medical History / Comment(s): 04-25-18 pt wants a flu vaccine while here. pmh includes:ptsd, anxiety, panic attacks, bipolar depression. as child has ear infections /rupture ear drum has scarring and some mild loss of hearing. History of Any Multi-Drug Resistant Organisms: MRSA Date of last positivie culture/infection: 2012 MDRO Source:: right knee Past Surgical History: Cholecystectomy, Orthopedic Surgery Additional Past Surgical History / Comment(s): thoracotomy age 22 for mass in left lung-benign, toby foot sx for bone spurs, toby knee scopes, 2 rt knee replacements, 1 lt knee replacement, rt shoulder scope, rt shoulder rebilt- removed part of clavicle Past Anesthesia/Blood Transfusion Reactions: Motion Sickness Additional Past Anesthesia/Blood Transfusion Reaction / Comment(s): clausterphobia. pt stated never had a blood transfusion Past Psychological History: Anxiety, Bipolar, Depression, Panic Disorder Smoking Status: Former smoker Past Alcohol Use History: None Reported Past Drug Use History: None Reported - Past Family History Mother Family Medical History: Diabetes Mellitus, Hypertension Additional Family Medical History / Comment(s): hemochromatosis. "heart problems" Father Family Medical History: Diabetes Mellitus, Hyperlipidemia, Hypertension Additional Family Medical History / Comment(s): depression, anxiety Medications and Allergies Home Medications Medication Instructions Recorded Confirmed Type Losartan/Hydrochlorothiazide 1 tab PO DAILY 11/06/13 04/24/18 History [Losartan-Hctz 100-25 mg Tab] Atorvastatin [Lipitor] 20 mg PO HS 06/09/17 04/24/18 History Baclofen [Lioresal] 10 mg PO BID 06/09/17 04/24/18 History HYDROcodone/APAP 7.5-325MG [[place] 1 tab PO TID PRN 06/09/17 04/24/18 History 7.5-325] amLODIPine [Norvasc] 10 mg PO DAILY 06/09/17 04/24/18 History Butalb/Acetaminophen/Caffeine 1 tab PO Q4HR PRN 04/27/18 04/27/18 History [Fioricet 50-325-40] Butalb/APAP/Caff 50-325-40Mg 1 each PO Q4HR PRN 30 Days #10 tab 04/28/18 Rx [Fioricet 50-325-40] Paliperidone [Invega] 6 mg PO 2100 30 Days #30 tab.er.24 04/28/18 Rx Pramipexole [Mirapex] 1 mg PO 2100 30 Days #30 tab 04/28/18 Rx cloNIDine HCL [Catapres] 0.2 mg PO TID 30 Days #90 tab 04/28/18 Rx lamoTRIgine [LaMICtal] 100 mg PO 2100 30 Days #30 tab 04/28/18 Rx predniSONE [Deltasone] 20 mg PO DAILY 5 Days #5 tab 12/20/18 Rx Allergies Allergy/AdvReac Type Severity Reaction Status Date / Time levofloxacin [From Levaquin] Allergy Anaphylaxis Verified 09/12/19 19:20 methylprednisolone sodium Allergy Unknown Verified 09/12/19 19:20 succinate [From Solu-Medrol] Penicillins Allergy Swelling Verified 09/12/19 19:20 sulfamethoxazole Allergy Swelling Verified 09/12/19 19:20 [From Bactrim] trimethoprim [From Bactrim] Allergy Swelling Verified 09/12/19 19:20 Exam Vital Signs Temp Pulse Resp BP Pulse Ox 09/12/19 23:06 118 H 18 117/75 96 09/12/19 22:03 98.1 F 110 H 18 119/60 96 09/12/19 20:48 113 H 18 119/67 98 09/12/19 19:13 98.1 F 120 H 28 H 145/108 97 Intake and Output 09/12/19 09/12/19 09/13/19 14:59 22:59 06:59 Other: Weight 113.398 kg - OBG Physical Exam Abdomen: Examination is limited to her abdomen. Patient has significant tenderness with palpation and some guarding. Exam otherwise is compromised by patient's obesity. Results Result Diagrams: 09/12/19 19:26 09/12/19 19:26 Abnormal Lab Results - Last 24 Hours (Table) 09/12/19 09/12/19 09/12/19 Range/Units 19:26 19:26 19:26 WBC 14.8 H (3.8-10.6) k/uL Neutrophils # 13.0 H (1.3-7.7) k/uL Sodium 135 L (137-145) mmol/L Creatinine 0.46 L (0.52-1.04) mg/dL Glucose 148 H (74-99) mg/dL Plasma Lactic Acid Bal 3.8 H* (0.7-2.0) mmol/L Urine Protein (Negative) Urine Ketones (Negative) 09/12/19 Range/Units 20:24 WBC (3.8-10.6) k/uL Neutrophils # (1.3-7.7) k/uL Sodium (137-145) mmol/L Creatinine (0.52-1.04) mg/dL Glucose (74-99) mg/dL Plasma Lactic Acid Bal (0.7-2.0) mmol/L Urine Protein Trace H (Negative) Urine Ketones 1+ H (Negative) Assessment and Plan Assessment: This is a 49-year-old multiparous patient with acute onset of left-sided pelvic pain and large left ovarian cystic mass. On CT and ultrasounds appears to be mostly cystic in there so for most likely is not malignant and very well p ossibly could be a torsion. Patient with severe acute pain and therefore best management is to proceed with laparotomy at this time for evaluation and treatment. I did explain to the patient there is rare circumstances this can be an ovarian cancer and that oftentimes will transfer for evaluation by BRAND DESIGNER oncologist, unfortunately and current circumstances there will be no transfers that would be accepted. Therefore we need to treat this patient here as best as possible. I did talk to general surgery, Dr. Carter, about the questionable left adrenal mass/left posterior john-diaphragmatic lesions seen on CT and he felt it was best that this be addressed at a later time and perhaps just followed. He did not think at this time that general surgery need to be involved at the time of surgery. I explained this in detail to the patient. Also discussed the surgery with the patient quitting risks of infection, bleeding, possible injury bowel, bladder, vessels, and/or other organs. She understands most likely left remove her left ovary or right ovary depending which when it is when we get in there. All the patient's questions are answered written consent is obtained. Plan is exploratory laparotomy with probable left oophorectomy, possible right oophorectomy. (1) Acute pelvic pain, female Current Visit: Yes Status: Acute Code(s): R10.2 - PELVIC AND PERINEAL PAIN SNOMED Code(s): 874423556 (2) Ovarian cyst Current Visit: Yes Status: Acute Code(s): N83.209 - UNSPECIFIED OVARIAN CYST, UNSPECIFIED SIDE SNOMED Code(s): 40434245
[2019-09-13] MEDS ORDERED: fentaNYL (PF) 50 MCG/ML 2 ML AMP ONE (01:15)
[2019-09-13] MEDS ORDERED: GLYCOPYRROLATE 0.2 MG/ML 2 ML VIAL ONE (01:15)
[2019-09-13] MEDS ORDERED: ROCURONIUM BROMIDE 10 MG/ML 5 ML VIAL IV ONE (01:15)
[2019-09-13] MEDS ORDERED: SUCCINYLCHOLINE CHLORIDE 100 MG/5 ML SYR IV ONE (01:15)
[2019-09-13] MEDS ORDERED: LIDOCAINE 1% INJ 10MG/ML (20 ML MDV) ONE (01:15)
[2019-09-13] MEDS ORDERED: PROPOFOL 10 MG/ML 20 ML VIAL IV ONE (01:15)
[2019-09-13] MEDS ORDERED: NEOSTIGMINE 1 MG/ML 10 ML VIAL ONE (01:15)
[2019-09-13] MEDS ORDERED: MIDAZOLAM 2 MG/2 ML VIAL ONE (01:15)
[2019-09-13] MEDS ORDERED: IV FLUID CONTINUATION 1,000 ML IV ONE (01:17)
[2019-09-13] MEDS ORDERED: LACTATED RINGERS 1,000 ML IV ONE (02:01)
--- NOTE | 2019-09-13 02:27 | P.OP ---
Date of Procedure: 09/13/19 Preoperative Diagnosis: #1: Acute lower abdominal pain. #2: Large left ovarian cystic mass. Postoperative Diagnosis: Same, left ovarian torsion Procedure(s) Performed: Exploratory laparotomy and left salpingo-oophorectomy Anesthesia: NETTE Surgeon: Eliu Spears Oil Dispatcher #1: Yoni Wren Estimated Blood Loss (ml): 50 Pathology: other (Left tube and ovary with cystic mass) Condition: stable Disposition: PACU Indications for Procedure: Please see dictated H&P for intimate details of this patient's admission. Brief summary this 49-year-old multiparous patient who is admitted to the emergency department with severe left sided pelvic pain. Valuation by CAT scan and ultrasound shows a 1315 cm left ovarian cystic mass. Patient's symptomatology were consistent with possible ovarian torsion. Despite multiple pain medications patient's pain did not improve and therefore now proceed Operative Findings: She had an approximate 14 cm mostly cystic ovarian mass that had a smooth appearance the risk some small nodules visible through the inside but in general appeared benign. The right tube and ovary were completely normal the uterus is normal with the exception of very small 1 cm fibroid. Exploration of the upper abdomen grossly did not find any abnormalities Description of Procedure: This patient is taken to the operating room where she is laid in the supine position. She subsequently undergoes general endotracheal anesthesia without incident. With an adequate level of anesthesia she has a Caruso catheter placed to straight drain. She has abdominal prep and drape. Scalpels and taken Pfannenstiel skin incision is then made. Scalpels taken down the fascia the fascia scored with a knife. Fascial extended bilaterally using Leigh scissors. Fascia is dissected off the rectus muscles. Rectus muscles are peritoneum identified and entered sharply. Peritoneal incision extended superior and inferior without difficulty. There is fluid in the pelvis small amount which is irrigated and sent separately for pathology. Inspection of the pelvis shows a 14 cm smooth-appearing mostly cystic mass encompassing the left ovary there is evidence of torsion approximately 1 time. There is some hemorrhage consistent with that as well. The cyst is delivered atraumatically as best as possible through the incision, is evident that it is twisted on a pedicle. Using 2 Angie clamps I clamp the pedicle and the entire left tube and ovary and encompassing mass is removed. This is sent to pathology. Using a Angie stitch and a free tie I doubly ligate each pedicle. Excellent hemostasis is noted. With this done I turned my attention to the rest of the pelvis uterus appears normal was a tiny fibroid in the fundus about a centimeter. The right ovary and tube appear completely normal. Grossly there are no lesions noted in the pelvis and I do suspect the lower abdomen and some of the upper abdomen as best as possible and I do not feel any other growths or mass. With this done irrigation is done of the pelvis again good hemostasis is assured. All counts are correct 3. The peritoneum was then identified and closed using 0 Vicryl running fashion. The rectus muscles reapproximated with Vicryl interrupted fashion. Fascial incision is closed using 0 PDS. Fascial incision is intact and hemostatic. Subcutaneous tissues and closed using a 3-0 Vicryl. Skin is and closed using myra. Sterile dressing is applied. All counts are correct 3. There are no complications. Patient's taken recovery room in satisfactory condition.
[2019-09-13] MEDS: HYDROmorphone 1 MG/ML 1 ML SYRINGE IVP ONE ×4 (02:30→02:55)
[2019-09-13 03:07] LABS: Glucose,Whole Blood 138 mg/dL (75-99)
[2019-09-13] MEDS ORDERED: KETOROLAC 30 MG/ML 1 ML VIAL IVP ONE (03:16)
[2019-09-13] MEDS ORDERED: HYDROmorphone PCA 10 MG/50 ML BAG IV PRN (04:00)
[2019-09-13] MEDS ORDERED: IBUPROFEN 600 MG TAB PO PRN (06:00)
[2019-09-13] MEDS ORDERED: ONDANSETRON 4 MG/2 ML VIAL IVP PRN (06:00)
[2019-09-13] MEDS: CLINDAMYCIN 900 MG in DEXTROSE 5% IN WATER 50 ML IVPB SCH ×4 (06:01→12:24)
--- NOTE | 2019-09-13 06:59 | P.PN ---
Progress Note - Text Progress Note Date: 09/13/19 Patient is resting this morning and states that she feels much better. Vital signs are stable and she is afebrile. Incision is intact and dry. Plan today is to discontinue her catheter, encourage ambulation, advance her diet, discontinue her CASE FITTER and changed over to oral pain medications. I did discuss the surgery and findings with patient. All questions are answered.
[2019-09-13 07:27] LABS: Glucose,Whole Blood 108 mg/dL (75-99)
[2019-09-13] MEDS: INSULIN ASPART (NovoLOG) 100 UNIT/ML VIAL SQ SCH ×4 (07:37→21:07)
[2019-09-13] MEDS ORDERED: diphenhydrAMINE 50 MG/ML 1 ML VIAL IVP PRN (07:40)
[2019-09-13] MEDS: LACTATED RINGERS 1,000 ML IV SCH ×2 (07:59→19:40)
[2019-09-13] MEDS: KETOROLAC 30 MG/ML 1 ML VIAL IVP PRN ×2 (09:46→15:42)
[2019-09-13 11:43] LABS: Glucose,Whole Blood 234 mg/dL (75-99)
--- NOTE | 2019-09-13 14:42 | P.CONS ---
History of Present Illness - Reason for Consult Consult date: 09/13/19 Medical management hypertension, diabetes mellitus, anxiety Requesting physician: Eliu Spears - Chief Complaint Left flank pain - History of Present Illness This a 49-year-old female with history of asthma, diabetes mellitus, hyperlipidemia, hypertension, anxiety, bipolar, depression, panic disorder, former nicotine dependence presented to the ER with complaints of left sided abdominal/pelvic pain. Patient had seen PCP prior, CT ordered reporting 13.5 cm cystic pelvic mass, probably left ovarian cysts, few right-sided iliac lymph nodes up to 1 cm, uterus anteverted, large liver 23.5 cm, left renal cyst 1 cm, right renal calculi 2 mm,questionable left adrenal mass 7.2 cm. vaginal ultrasound reporting 15 cm mostly cystic area of the left adnexal area, no free fluid. Evaluated by a YEAST MAKER, underwent laparotomy with left salpingo- oophnephrectomy. Tolerated procedure well. Currently on LINEN SORTER been converted to oral at noon in addition to Toradol. Denies chest pain, palpitations or shortness of breath. Continues on clindamycin. Lactic acid 2.5, down to 1.7, maintained on IV fluid hydration. Afebrile, most recent WBC 14.8. Blood sugars uncontrolled. Denies flatus or bowel movement. Incentive spirometer up to 1999. Review of Systems ROS Statement: Those systems with pertinent positive or pertinent negative responses have been documented in the HPI. ROS Other: All systems not noted in ROS Statement are negative. Past Medical History Past Medical History: Asthma, Diabetes Mellitus, Hyperlipidemia, Hypertension Additional Past Medical History / Comment(s): 04-25-18 pt wants a flu vaccine while here. pmh includes:ptsd, anxiety, panic attacks, bipolar depression. as child has ear infections /rupture ear drum has scarring and some mild loss of hearing. History of Any Multi-Drug Resistant Organisms: MRSA Year Discovered:: 2012 MDRO Source:: right knee Past Surgical History: Cholecystectomy, Orthopedic Surgery Additional Past Surgical History / Comment(s): thoracotomy age 22 for mass in left lung-benign, toby foot sx for bone spurs, toby knee scopes, 2 rt knee replacements, 1 lt knee replacement, rt shoulder scope, rt shoulder rebilt- removed part of clavicle Past Anesthesia/Blood Transfusion Reactions: Motion Sickness Additional Past Anesthesia/Blood Transfusion Reaction / Comm: pt stated never had a blood transfusion Past Psychological History: Anxiety, Bipolar, Depression, Panic Disorder Smoking Status: Former smoker Past Alcohol Use History: None Reported Additional Past Alcohol Use History / Comment(s): started smoking at age 13 and quit 2016 smoked 1/2 ppd. Past Drug Use History: None Reported - Past Family History Mother Family Medical History: Diabetes Mellitus, Hypertension Additional Family Medical History / Comment(s): hemochromatosis. "heart problems" Father Family Medical History: Diabetes Mellitus, Hyperlipidemia, Hypertension Additional Family Medical History / Comment(s): depression, anxiety Medications and Allergies Home Medications Medication Instructions Recorded Confirmed Type Losartan/Hydrochlorothiazide 1 tab PO DAILY 11/06/13 04/24/18 History [Losartan-Hctz 100-25 mg Tab] Atorvastatin [Lipitor] 20 mg PO HS 06/09/17 04/24/18 History Baclofen [Lioresal] 10 mg PO BID 06/09/17 04/24/18 History HYDROcodone/APAP 7.5-325MG [[place] 1 tab PO TID PRN 06/09/17 04/24/18 History 7.5-325] amLODIPine [Norvasc] 10 mg PO DAILY 06/09/17 04/24/18 History Butalb/Acetaminophen/Caffeine 1 tab PO Q4HR PRN 04/27/18 04/27/18 History [Fioricet 50-325-40] Butalb/APAP/Caff 50-325-40Mg 1 each PO Q4HR PRN 30 Days #10 tab 04/28/18 Rx [Fioricet 50-325-40] Paliperidone [Invega] 6 mg PO 2100 30 Days #30 tab.er.24 04/28/18 Rx Pramipexole [Mirapex] 1 mg PO 2100 30 Days #30 tab 04/28/18 Rx cloNIDine HCL [Catapres] 0.2 mg PO TID 30 Days #90 tab 04/28/18 Rx lamoTRIgine [LaMICtal] 100 mg PO 2100 30 Days #30 tab 04/28/18 Rx predniSONE [Deltasone] 20 mg PO DAILY 5 Days #5 tab 12/20/18 Rx Allergies Allergy/AdvReac Type Severity Reaction Status Date / Time levofloxacin [From Levaquin] Allergy Anaphylaxis Verified 09/12/19 19:20 methylprednisolone sodium Allergy Unknown Verified 09/12/19 19:20 succinate [From Solu-Medrol] Penicillins Allergy Swelling Verified 09/12/19 19:20 sulfamethoxazole Allergy Swelling Verified 09/12/19 19:20 [From Bactrim] trimethoprim [From Bactrim] Allergy Swelling Verified 09/12/19 19:20 Physical Exam Vitals: Vital Signs Temp Pulse Pulse Resp BP BP Pulse Ox 09/13/19 08:43 96 09/13/19 07:46 97.7 F 101 H 18 104/55 95 09/13/19 06:31 97.8 F 92 18 96/46 95 09/13/19 06:01 93 18 101/58 95 09/13/19 05:31 97.8 F 89 16 92/55 98 09/13/19 05:01 97.4 F L 82 18 95/52 09/13/19 04:31 82 18 84/52 95 09/13/19 04:16 83 18 94/50 95 09/13/19 04:01 88 18 93/52 95 09/13/19 03:46 96.9 F L 102 H 20 93/54 95 09/13/19 03:40 96 09/13/19 03:27 102 H 16 123/57 97 09/13/19 03:12 100 16 125/60 96 09/13/19 02:57 92 16 120/62 98 09/13/19 02:42 99 18 124/68 99 09/13/19 02:27 96 18 122/70 99 09/13/19 02:12 97.8 F 108 H 20 97 09/13/19 01:43 97.0 F L 95 18 93/54 95 09/13/19 00:32 98 F 105 H 18 134/79 98 09/12/19 23:06 118 H 18 117/75 96 09/12/19 22:03 98.1 F 110 H 18 119/60 96 09/12/19 20:48 113 H 18 119/67 98 09/12/19 19:13 98.1 F 120 H 28 H 145/108 97 Intake and Output 09/12/19 09/13/19 09/13/19 22:59 06:59 14:59 Intake Total 1000 Output Total 275 150 Balance 725 -150 Intake: IV 1000 Output: Urine 225 150 Uretheral (Caruso) 150 Estimated Blood Loss 50 Other: Weight 113.398 kg 113.398 kg PHYSICAL EXAM: VITAL SIGNS: [As above] GENERAL: Sitting up in bed, no acute distress HEENT: Conjunctivae normal. eyes normal. Oral mucosa moist NECK: No JVD. No thyroid enlargement. No LNs CARDIOVASCULAR: S1, S2 regular. No murmur RESPIRATION: Breath sounds diminished in the bases. No rhonchi or crackles. No bronchial breathing. ABDOMEN: Soft, tender, status post surgery, positive left lower quadrant Bowel sounds. LEGS: No edema. no swelling PSYCHIATRY: Alert and oriented X3, mood and affect normal. NERVOUS SYSTEM: Cranial N 2-12 grossly normal. Moves all 4 limbs. No focal deficits. Strength and sensation grossly intact.. Skin: no rash Lymphatic system. No LN neck axilla. Results CBC & Chem 7: 09/12/19 19:26 09/12/19 19:26 Labs: Abnormal Lab Results - Last 24 Hours (Table) 09/12/19 09/12/19 09/12/19 Range/Units 19:26 19:26 19:26 WBC 14.8 H (3.8-10.6) k/uL Neutrophils # 13.0 H (1.3-7.7) k/uL Sodium 135 L (137-145) mmol/L Creatinine 0.46 L (0.52-1.04) mg/dL Glucose 148 H (74-99) mg/dL POC Glucose (mg/dL) (75-99) mg/dL Plasma Lactic Acid Bal 3.8 H* (0.7-2.0) mmol/L Urine Protein (Negative) Urine Ketones (Negative) 09/12/19 09/12/19 09/13/19 Range/Units 20:24 23:50 03:05 WBC (3.8-10.6) k/uL Neutrophils # (1.3-7.7) k/uL Sodium (137-145) mmol/L Creatinine (0.52-1.04) mg/dL Glucose (74-99) mg/dL POC Glucose (mg/dL) 138 H (75-99) mg/dL Plasma Lactic Acid Bal 2.6 H* (0.7-2.0) mmol/L Urine Protein Trace H (Negative) Urine Ketones 1+ H (Negative) 09/13/19 09/13/19 09/13/19 Range/Units 03:58 07:26 11:41 WBC (3.8-10.6) k/uL Neutrophils # (1.3-7.7) k/uL Sodium (137-145) mmol/L Creatinine (0.52-1.04) mg/dL Glucose (74-99) mg/dL POC Glucose (mg/dL) 108 H 234 H (75-99) mg/dL Plasma Lactic Acid Bal 2.7 H* (0.7-2.0) mmol/L Urine Protein (Negative) Urine Ketones (Negative) Assessment and Plan Assessment: Acute pelvic pain, 13.5 cm cystic pelvic mass, left ovary, torsion appearing per surgery ,uterus anteverted, status post exploratory laparotomy with left salpingo-and nephrectomy, cytology/pathology pending Possible Left adrenal mass, left posterior hemidiaphragmatic lesion, further follow-up with general surgery outpatient Left kidney cyst 1 cm Right kidney calculi 2 mm Large liver 23.5 cm Hypertension Hyperlipidemia Diabetes mellitus Chronic intermittent asthma, stable Prior nicotine dependence Bipolar, anxiety, depression, panic disorder Plan: Continue current medication regime ,monitoring and symptomatic treatment. NovoLog sliding scale, Lantus daily at bedtime initiated. Antihypertensives to remain on hold as patient borderline hypotensive on IV fluid hydration. Pain management as per primary. Aggressive pulmonary toileting with incentive spirometer reinforced. Increase ambulation as tolerated. Discharge planning as per surgery. Thank you Dr. Spears for the consult. The impression and plan of care has been dictated as directed. : I performed a history and examination of this patient, discussed the same with the dictator. I agree with the dictator's note ,documented as a scribe. Any additional findings or plans will be noted.
[2019-09-13 17:14] LABS: Glucose,Whole Blood 110 mg/dL (75-99)
[2019-09-13 20:54] LABS: Glucose,Whole Blood 94 mg/dL (75-99)
[2019-09-13] MEDS: HYDROcodone/APAP 7.5-325MG 1 EACH TAB PO PRN (21:05)
[2019-09-13] MEDS: PANTOPRAZOLE 40 MG/10 ML VIAL IVP SCH (21:06)
[2019-09-13] MEDS: INSULIN DETEMIR (LEVEMIR) 100 UNIT/ML SYR SQ SCH (21:06)
[2019-09-14] MEDS: KETOROLAC 30 MG/ML 1 ML VIAL IVP PRN ×3 (00:01→13:45)
[2019-09-14] MEDS: LACTATED RINGERS 1,000 ML IV SCH (01:43)
--- NOTE | 2019-09-14 06:10 | P.PN ---
Progress Note - Text Progress Note Date: 09/14/19 Post operative day #1. Patient is resting without new complaints. Vital signs are stable and she is afebrile. Incision is intact and dry. Patient's tolerating regular diet, urinating, and ambulating without difficulty. CBC is pending at time of this dictation. My impression is she is doing very well postoperatively. Today we'll continue ambulation and most likely discharge home tomorrow.
[2019-09-14 06:30] LABS: Glucose,Whole Blood 132 mg/dL (75-99)
[2019-09-14 06:39] LABS: Basophils % (A) 0 %; Eosinophils # (A) 0.1 k/uL (0-0.7); Eosinophils % (A) 1 %; HCT 37.6 % (34.0-46.0); HGB 11.9 gm/dL (11.4-16.0); Lymphocytes # (A) 2.8 k/uL (1.0-4.8); Lymphocytes % (A) 22 %; MCH 27.1 pg (25.0-35.0); MCHC 31.5 g/dL (31.0-37.0); MCV 85.9 fL (80.0-100.0); Mean Platelet Volume 7.1; Monocytes # (A) 0.6 k/uL (0-1.0); Monocytes % (A) 5 %; Neutrophils # (A) 8.9 k/uL (1.3-7.7); Neutrophils % (A) 70 %; Platelet Count 345 k/uL (150-450); RBC 4.37 m/uL (3.80-5.40); RDW 14.6 % (11.5-15.5); WBC 12.8 k/uL (3.8-10.6)
[2019-09-14] MEDS: INSULIN ASPART (NovoLOG) 100 UNIT/ML VIAL SQ SCH ×3 (07:06→19:52)
[2019-09-14] MEDS: PANTOPRAZOLE 40 MG/10 ML VIAL IVP SCH (08:58)
[2019-09-14] MEDS: HYDROcodone/APAP 7.5-325MG 1 EACH TAB PO PRN ×2 (11:02→18:38)
[2019-09-14 12:02] LABS: Glucose,Whole Blood 114 mg/dL (75-99)
[2019-09-14] MEDS ORDERED: fentaNYL (PF) 50 MCG/ML 2 ML AMP IV PRN (13:06)
[2019-09-14] MEDS ORDERED: ONDANSETRON 4 MG/2 ML VIAL IVP ONE (13:06)
[2019-09-14] MEDS ORDERED: LACTATED RINGERS 1,000 ML IV SCH (13:06)
[2019-09-14] MEDS ORDERED: HYDROmorphone 0.5 MG/0.5 ML SYRINGE IVP PRN (13:06)
[2019-09-14] MEDS ORDERED: BUTALB/APAP/CAFF 50-325-40MG TAB PO PRN ×2 (14:42)
--- NOTE | 2019-09-14 15:47 | P.PN ---
Subjective Progress Note Date: 09/14/19 This a 49-year-old female with history of asthma, diabetes mellitus, hyperlipidemia, hypertension, anxiety, bipolar, depression, panic disorder, former nicotine dependence presented to the ER with complaints of left sided abdominal/pelvic pain. Patient had seen PCP prior, CT ordered reporting 13.5 cm cystic pelvic mass, probably left ovarian cysts, few right-sided iliac lymph nodes up to 1 cm, uterus anteverted, large liver 23.5 cm, left renal cyst 1 cm, right renal calculi 2 mm,questionable left adrenal mass 7.2 cm. vaginal ultrasound reporting 15 cm mostly cystic area of the left adnexal area, no free fluid. Evaluated by a HEDIS ANALYST, underwent laparotomy with left salpingo- oophnephrectomy. Tolerated procedure well. Currently on NURSING PROGRAM CHAIR been converted to oral at noon in addition to Toradol. Denies chest pain, palpitations or shortness of breath. Continues on clindamycin. Lactic acid 2.5, down to 1.7, maintained on IV fluid hydration. Afebrile, most recent WBC 14.8. Blood sugars uncontrolled. Denies flatus or bowel movement. Incentive spirometer up to 1999. 09/14/2019 incentive spirometer up to 1999. Vital signs stable, IV fluids have been discontinued. Good diet intake, denies nausea, vomiting or diarrhea. Passing flatus, no bowel movement. Ambulating, tolerating exertion well with no lightheadedness, dizziness or focal deficits. Afebrile, WBC trending down, 12.8. Last night Accu-Cheks 94, patient declined Lantus insulin. Blood sugars currently ranging 110s to 132. Pain controlled. Hemoglobin down to 11.9. Denies chest pain, palpitations or shortness of breath. Objective - Vital Signs Vital signs: Vital Signs Temp 97.1 F L 09/14/19 08:00 Pulse 104 H 09/14/19 08:00 Resp 18 09/14/19 08:00 BP 120/73 09/14/19 08:00 Pulse Ox 96 09/14/19 08:00 Intake & Output 09/13/19 09/14/19 09/14/19 18:59 06:59 18:59 Output Total 500 550 Balance -500 -550 Output: Urine 500 550 Uretheral (Caruso) 150 Other: # Voids 1 2 2 - Exam PHYSICAL EXAM: VITAL SIGNS: [As above] GENERAL: Sitting up in bed, no acute distress HEENT: Conjunctivae normal. eyes normal. Oral mucosa moist NECK: No JVD. No thyroid enlargement. No LNs CARDIOVASCULAR: S1, S2 regular. No murmur RESPIRATION: Breath sounds diminished in the bases. No rhonchi, crackles or wheezing ABDOMEN: Soft, tender, status post surgery, positive Bowel sounds. LEGS: No edema. no swelling PSYCHIATRY: Alert and oriented X3, mood and affect normal. NERVOUS SYSTEM: Cranial N 2-12 grossly normal. Moves all 4 limbs. No focal deficits. Strength and sensation grossly intact.. Skin: no rash - Labs CBC & Chem 7: 09/14/19 06:08 09/12/19 19:26 Labs: Abnormal Lab Results - Last 24 Hours (Table) 09/13/19 09/14/19 09/14/19 Range/Units 17:12 06:08 06:28 WBC 12.8 H (3.8-10.6) k/uL Neutrophils # 8.9 H (1.3-7.7) k/uL POC Glucose (mg/dL) 110 H 132 H (75-99) mg/dL 09/14/19 Range/Units 12:00 WBC (3.8-10.6) k/uL Neutrophils # (1.3-7.7) k/uL POC Glucose (mg/dL) 114 H (75-99) mg/dL Assessment and Plan Assessment: Acute pelvic pain, 13.5 cm cystic pelvic mass, left ovary, torsion appearing per surgery ,uterus anteverted, status post exploratory laparotomy with left salpingo-and nephrectomy, cytology/pathology pending Leukocytosis, secondary to the above Postoperative blood loss anemia, expected Possible Left adrenal mass, left posterior hemidiaphragmatic lesions, further follow-up with general surgery, Dr. Carter outpatient Left kidney cyst 1 cm Right kidney calculi 2 mm Enlarged liver 23.5 cm Hypertension Hyperlipidemia Diabetes mellitus Chronic intermittent asthma, stable Prior nicotine dependence Bipolar, anxiety, depression, panic disorder Plan: Continue current medication regime ,monitoring and symptomatic treatment. Close monitoring of coags. with labs ordered for a.m. Maintain aggressive pulmonary toileting with incentive spirometer reinforced.increase ambulation as tolerated. Discharge planning in progress as per primary. The impression and plan of care has been dictated as directed. Dr.: I performed a history and examination of this patient, discussed the same with the dictator. I agree with the dictator's note ,documented as a scribe. Any additional findings or plans will be noted.
[2019-09-14 16:01] VITALS: RESP 16
[2019-09-14] MEDS ORDERED: ATORVASTATIN 20 MG TAB PO SCH (21:00)
[2019-09-14] MEDS ORDERED: PRAMIPEXOLE 1 MG TAB PO SCH (21:00)
[2019-09-14] MEDS ORDERED: lamoTRIgine 100 MG TAB PO SCH (21:00)
[2019-09-14 21:15] LABS: Glucose,Whole Blood 100 mg/dL (75-99)
[2019-09-14] MEDS: INSULIN DETEMIR (LEVEMIR) 100 UNIT/ML SYR SQ SCH (21:16)
[2019-09-15] MEDS: HYDROcodone/APAP 7.5-325MG 1 EACH TAB PO PRN ×2 (00:48→11:21)
[2019-09-15] MEDS: INSULIN ASPART (NovoLOG) 100 UNIT/ML VIAL SQ SCH ×2 (02:10→08:25)
[2019-09-15] MEDS: LACTATED RINGERS 1,000 ML IV SCH ×3 (02:12→07:02)
[2019-09-15 02:22] VITALS: BP 128/60; PULSE 85; TEMP 97.4
[2019-09-15 06:25] LABS: Basophils % (A) 0 %; Eosinophils # (A) 0.3 k/uL (0-0.7); Eosinophils % (A) 3 %; HCT 34.3 % (34.0-46.0); HGB 11.1 gm/dL (11.4-16.0); Lymphocytes # (A) 2.4 k/uL (1.0-4.8); Lymphocytes % (A) 22 %; MCH 27.7 pg (25.0-35.0); MCHC 32.4 g/dL (31.0-37.0); MCV 85.4 fL (80.0-100.0); Mean Platelet Volume 7.1; Monocytes # (A) 0.4 k/uL (0-1.0); Monocytes % (A) 4 %; Neutrophils # (A) 7.6 k/uL (1.3-7.7); Neutrophils % (A) 70 %; Platelet Count 337 k/uL (150-450); RBC 4.02 m/uL (3.80-5.40); RDW 14.2 % (11.5-15.5); WBC 10.9 k/uL (3.8-10.6)
[2019-09-15 07:50] LABS: Glucose,Whole Blood 103 mg/dL (75-99)
[2019-09-15] MEDS: LOSARTAN 50 MG TAB PO SCH ×2 (08:36→09:16)
[2019-09-15] MEDS ORDERED: amLODIPine 10 MG TAB PO STA (09:11)
[2019-09-15] MEDS: PANTOPRAZOLE 40 MG/10 ML VIAL IVP SCH (09:16)
--- NOTE | 2019-09-15 12:05 | P.DS ---
Providers Date of admission: 09/13/19 08:37 Expected date of discharge: 09/15/19 Attending physician: Eliu Spears Consults: 09/13/19 00:08 Consult Physician Stat Consulting Provider: Sebastian Reyez Consult Reason/Comments: medical management Do you want consulting provider notified?: Already Contacted Primary care physician: Sebastian Reyez [facility] Course: This is a 49-year-old female who underwent a exploratory laparotomy with left salpingo-oophorectomy secondary to her large left ovarian cyst with partial torsion. Postoperatively she has done well. Medicine was consulted and she does have follow-up scheduled. She is passing flatus and bowel movement and urinating without difficulty. She did just a menses. Pain has been fairly well-controlled. Vital signs are stable. Abdomen is soft with positive bowel sounds 4 area incision is clean dry and intact with myra in place. Extremities show negative Homans. Impression is status post exploratory laparot tayler with left salpingo-oophorectomy postoperative day #2. Plan is to discharge home today. Routine postoperative instructions are given. She is advised to follow up with Dr. Spears in approximately 1 week. She is also advised to follow-up with medicine as directed. She is advised to call the office if she has any further questions or concerns prior to her postoperative appointment. Procedures: Exploratory laparotomy with left salpingo-oophorectomy on 09/13/2019 Patient Condition at Discharge: Stable Plan - Discharge Summary New Discharge Prescriptions: New HYDROcodone/APAP 7.5-325MG [[place] 7.5-325] 1 each PO Q6H PRN #12 tab PRN Reason: Pain INSULIN LISPRO (HumaLOG) [humaLOG] 7 unit SQ ACHS #1 vial No Action Losartan/Hydrochlorothiazide [Losartan-Hctz 100-25 mg Tab] 1 tab PO DAILY HYDROcodone/APAP 7.5-325MG [[place] 7.5-325] 1 tab PO TID PRN PRN Reason: Pain Atorvastatin [Lipitor] 20 mg PO HS amLODIPine [Norvasc] 10 mg PO DAILY Butalb/Acetaminophen/Caffeine [Fioricet 50-325-40] 1 tab PO Q4HR PRN PRN Reason: Migraine Headache Butalb/APAP/Caff 50-325-40Mg [Fioricet 50-325-40] 1 each PO Q4HR PRN 30 Days #10 tab PRN Reason: Headache lamoTRIgine [LaMICtal] 100 mg PO 2100 30 Days #30 tab Pramipexole [Mirapex] 1 mg PO 2100 30 Days #30 tab Discharge Medication List Losartan/Hydrochlorothiazide [Losartan-Hctz 100-25 mg Tab] 1 tab PO DAILY 11/06/13 [History] Atorvastatin [Lipitor] 20 mg PO HS 06/09/17 [History] HYDROcodone/APAP 7.5-325MG [[place] 7.5-325] 1 tab PO TID PRN 06/09/17 [History] amLODIPine [Norvasc] 10 mg PO DAILY 06/09/17 [History] Butalb/Acetaminophen/Caffeine [Fioricet 50-325-40] 1 tab PO Q4HR PRN 04/27/18 [History] Butalb/APAP/Caff 50-325-40Mg [Fioricet 50-325-40] 1 each PO Q4HR PRN 30 Days #10 tab 04/28/18 [Rx] Pramipexole [Mirapex] 1 mg PO 2100 30 Days #30 tab 04/28/18 [Rx] lamoTRIgine [LaMICtal] 100 mg PO 2100 30 Days #30 tab 04/28/18 [Rx] HYDROcodone/APAP 7.5-325MG [[place] 7.5-325] 1 each PO Q6H PRN #12 tab 09/14/19 [Rx] INSULIN LISPRO (HumaLOG) [humaLOG] 7 unit SQ ACHS #1 vial 09/14/19 [Rx] Follow up Appointment(s)/Referral(s): Eliu Spears MD [STAFF PHYSICIAN] - 1 Week Sebastian Reyez MD [Primary Care Provider] - 1-2 days Patient Instructions/Handouts: Exploratory Laparotomy (DC) Activity/Diet/Wound Care/Special Instructions: No strenuous activities or heavy lifting for 6 weeks. Please call if any fever, chills, excessive vaginal bleeding, and/or abdominal pain. Discharge Disposition: HOME SELF-CARE
--- NOTE | 2019-09-18 03:12 | CDI ---
Documentation Clarification Form Date: 09/18/2019 From: Jalil Patel Phone: If you have a question about this query, please contact Laurel Dixon Shipping Manager at [phone] between 8am and 5pm. Admit Date: 09/13/2019 Discharge Date: 09/15/2019 Patient Name: Manolo Yost Visit Number: [id number] ATTENTION: The Clinical Documentation Specialists (CDI) and [facility] Coding Staff appreciate your assistance in clarifying documentation. Please respond to the clarification below the line at the bottom and electronically sign. The CDI & [facility] Coding staff will review the response and follow-up if needed. Please note: Queries are made part of the Legal Health Record. If you have any questions, please contact the author of this message via ITS. Dear regino Juarez., Anemia is documented in the 09/13 progress note as "Postoperative blood loss anemia, expected" by Aissatou Bronson. History/Risk Factors: Left Ovarian cyst, Torsion of left ovarian cyst. Hemoglobin: 13.3, 11.9, 11.1. Hematocrit: 41.1, 37.6, 34.3 Hemoglobin down to 11.9. Treatment: Conservative management. In order to capture the severity of condition, please clarify the type of anemia and etiology if known: Acute blood loss anemia --yes Unable to determine Other, please specify MTDD
--- NOTE | 2019-09-18 03:16 | CDI ---
Documentation Clarification Form Date: 09/18/2019 From: Jalil Patel Phone: If you have a question about this query, please contact Laurel Dixon, Advertising Campaign Manager at [phone] between 8am and 5pm. Admit Date: 09/13/2019 Discharge Date: 09/15/2019 Patient Name: Manolo Yost Visit Number: [id number] ATTENTION: The Clinical Documentation Specialists (CDI) and [facility] Coding Staff appreciate your assistance in clarifying documentation. Please respond to the clarification below the line at the bottom and electronically sign. The CDI & [facility] Coding staff will review the response and follow-up if needed. Please note: Queries are made part of the Legal Health Record. If you have any questions, please contact the author of this message via ITS. Dear regino Juarez., The documentation in the medical record included : Lactic acid 2.5, down to 1.7, maintained on IV fluid hydration Past medical history/Risk Factors: Left Ovarian cyst, Torsion of left ovarian cyst. Plasma Lactic Acid Bal 3.8 H* (0.7-2.0) mmol/L Plasma Lactic Acid Bal 2.6 H* (0.7-2.0) mmol/L Plasma Lactic Acid Bal 2.7 H* (0.7-2.0) mmol/L down to 1.7, Treatment: IV fluid hydration In your professional opinion, can you please clarify if the above clinical indicators and treatment signify any of the following? Lactic Acidosis Metabolic Acidosis Unable to determine Other, please specify This would be a question to ask the medicine consultants on the case. I did not participate in this patient's care other that to discharge her. Dr. Spears was the surgeon and medicine was involved also. I'm sorry I don't know the answer to the question. ____ MTDD
--- NOTE | 2019-09-19 23:15 | CDI ---
Documentation Clarification Form Date: 09/20/2019 From: Jalil Patel Phone: If you have a question about this query, please contact Laurel Dixon, Wet Process Technician at [phone] between 8am and 5pm. Admit Date: 09/13/2019 Discharge Date: 09/15/2019 Patient Name: Manolo Yost Visit Number: [id number] ATTENTION: The Clinical Documentation Specialists (CDI) and [facility] Coding Staff appreciate your assistance in clarifying documentation.Please respond to the clarification below the line at the bottom and electronically sign.The CDI [facility] Coding staff will review the response and follow-up if needed.Please note: Queries are made part of the Legal Health Record.If you have any questions, please contact the author of this message via ITS. Dear Eliu Arguello, The documentation in the medical record included : Lactic acid 2.5, down to 1.7, maintained on IV fluid hydration Past medical history/Risk Factors: Left Ovarian cyst, Torsion of left ovarian cyst. Plasma Lactic Acid Bal 3.8 H* (0.7-2.0) mmol/L Plasma Lactic Acid Bal 2.6 H* (0.7-2.0) mmol/L Plasma Lactic Acid Bal 2.7 H* (0.7-2.0) mmol/L down to 1.7, Treatment: IV fluid hydration In your professional opinion, can you please clarify if the above clinical indicators and treatment signify any of the following? Lactic Acidosis Metabolic Acidosis Unable to determine Other, please specify MTDD
--- NOTE | 2019-09-24 23:28 | CDI ---
I did not order these tests and this would be better clarified with her primary care provider (Dr. Lopez/kathy). I only managed her acute asphalt patcher problem which was non-infectious. Documentation Clarification Form Date: 09/25/2019 From: Jalil Patel Phone: If you have a question about this query, please contact Laurel Dixon, Customer Orders Clerk at [phone] between 8am and 5pm. Admit Date: 09/13/2019 Discharge Date: 09/15/2019 Patient Name: Manolo Yost Visit Number: [id number] ATTENTION: The Clinical Documentation Specialists (CDI) and [facility] Coding Staff appreciate your assistance in clarifying documentation.Please respond to the clarification below the line at the bottom and electronically sign.The CDI [facility] Coding staff will review the response and follow-up if needed.Please note: Queries are made part of the Legal Health Record.If you have any questions, please contact the author of this message via ITS. Dear Eliu Arguello, The documentation in the medical record included : Lactic acid 2.5, down to 1.7, maintained on IV fluid hydration Past medical history/Risk Factors: Left Ovarian cyst, Torsion of left ovarian cyst. Plasma Lactic Acid Bal 3.8 H* (0.7-2.0) mmol/L Plasma Lactic Acid Bal 2.6 H* (0.7-2.0) mmol/L Plasma Lactic Acid Bal 2.7 H* (0.7-2.0) mmol/L down to 1.7, Treatment: IV fluid hydration In your professional opinion, can you please clarify if the above clinical indicators and treatment signify any of the following? Lactic Acidosis Metabolic Acidosis Unable to determine Other, please specify MTDD
--- NOTE | 2019-09-26 22:57 | CDI ---
Documentation Clarification Form Date: 09/27/2019 From: Jalil Patel Phone: If you have a question about this query, please contact Laurel Dixon, E Business Specialist at [phone] between 8am and 5pm. Admit Date: 09/13/2019 Discharge Date: 09/15/2019 Patient Name: Manolo Yost Visit Number: [id number] ATTENTION: The Clinical Documentation Specialists (CDI) and [facility] Coding Staff appreciate your assistance in clarifying documentation.Please respond to the clarification below the line at the bottom and electronically sign.The CDI [facility] Coding staff will review the response and follow-up if needed.Please note: Queries are made part of the Legal Health Record.If you have any questions, please contact the author of this message via ITS. Dear Sebastian Kent MD., The documentation in the medical record included : Lactic acid 2.5, down to 1.7, maintained on IV fluid hydration Past medical history/Risk Factors: Left Ovarian cyst, Torsion of left ovarian cyst. Plasma Lactic Acid Bal 3.8 H* (0.7-2.0) mmol/L Plasma Lactic Acid Bal 2.6 H* (0.7-2.0) mmol/L Plasma Lactic Acid Bal 2.7 H* (0.7-2.0) mmol/L down to 1.7, Treatment: IV fluid hydration In your professional opinion, can you please clarify if the above clinical indicators and treatment signify any of the following? Lactic Acidosis Metabolic Acidosis Unable to determine Other, please specify MTDD
== END 2019-09-15 12:30 | disposition home or self-care (01) | DRG 742 ==
LOC: EC 19:10 → 4FBP 09-13 00:08 → OBSVTOIN 09-13 08:37
PROVIDERS: ADMIT Obstetrics & Gynecology; ATTEND Obstetrics & Gynecology
PROC: 0UT60ZZ Resection of Left Fallopian Tube, Open Approach (ICD-10-PCS; principal; 2019-09-13 01:00)
PROC: 0DJW0ZZ Inspection of Peritoneum, Open Approach (ICD-10-PCS; principal; 2019-09-13 01:00)
PROC: 0UT10ZZ Resection of Left Ovary, Open Approach (ICD-10-PCS; principal; 2019-09-13 01:00)
DX: N83.202 Unspecified ovarian cyst, left side (principal); D62 Acute posthemorrhagic anemia; N83.512 Torsion of left ovary and ovarian pedicle; F41.0 Panic disorder [episodic paroxysmal anxiety]; F43.10 Post-traumatic stress disorder, unspecified; I10 Essential (primary) hypertension; E78.5 Hyperlipidemia, unspecified; Z96.653 Presence of artificial knee joint, bilateral; N20.0 Calculus of kidney; R16.0 Hepatomegaly, not elsewhere classified; N28.1 Cyst of kidney, acquired; E11.9 Type 2 diabetes mellitus without complications; J45.20 Mild intermittent asthma, uncomplicated; F31.9 Bipolar disorder, unspecified; Z79.899 Other long term (current) drug therapy; Z88.1 Allergy status to other antibiotic agents; Z88.0 Allergy status to penicillin; Z88.2 Allergy status to sulfonamides; Z88.8 Allergy status to other drugs, medicaments and biological substances; Z82.49 Family history of ischemic heart disease and other diseases of the circulatory system; Z81.8 Family history of other mental and behavioral disorders; Z83.3 Family history of diabetes mellitus; Z87.442 Personal history of urinary calculi; Z86.19 Personal history of other infectious and parasitic diseases; Z90.49 Acquired absence of other specified parts of digestive tract; Z98.890 Other specified postprocedural states; Z87.891 Personal history of nicotine dependence
CPT/HCPCS: 36415; 74177; 76830; 80053; 81003; 81025; 82150; 83605; 83690; 85025; 85610; 85730; 88108; 88305; 88307; 94760; 96361; 96365; 96375; 96376; 99285

== ENCOUNTER → 2019-09-12 | Outpatient (CLI) | payer MEDICARE, OTHER ==
--- NOTE | 2019-09-12 11:17 | CT ---
EXAMINATION TYPE: CT abdomen pelvis wo con DATE OF EXAM: 09/12/2019 COMPARISON: None HISTORY: 49-year-old female Lt flank pain, hematuria CT DLP: 1365.4 mGycm. Automated exposure control for dose reduction was used. TECHNIQUE: Contiguous axial scanning of the abdomen and pelvis without IV contrast. Coronal and sagit della reconstructions performed. FINDINGS: LUNG BASES: Some strandy areas of atelectasis. LIVER/GB: Liver enlarged at 23.4 cm craniocaudal. Cholecystectomy clips. PANCREAS: No significant abnormality is seen. SPLEEN: No significant abnormality is seen. ADRENALS: No significant abnormality is seen. KIDNEYS: A 1.4 cm cortical hypodensity anterior mid pole left kidney likely cortical cyst. Nonobstruc tive 3 mm right upper pole renal calculus. No hydronephrosis on either side no suspicious ureteral ca lculus is seen. BOWEL: No dilated small bowel, free fluid, or free air. Normal appendix. Scattered mild stool in the right side of the colon. No pericolic inflammatory change. LYMPH NODES: Borderline-sized left common iliac chain lymph nodes measure up to 9 mm, likely reactive /post inflammatory. Left periaortic lymph nodes in the retroperitoneum measuring up to 7 mm. PELVIS: Bladder partially distended. Uterus is anteverted likely with underlying fibrotic change give n left posterior fundal contour lobulation measuring 2.2 cm in anterior fundal contour lobulation mann suring 1.2 cm on sagittal series. Unable to clearly delineate either ovary from clustered bowel loops in the pelvis. However, there is a cystic lesion within the right side of the pelvis extending up into the lower abdomen to the level of the umbilicus measuring up to 14.0 cm craniocaudal by 10.4 cm wide by 10.2 cm AP. No abnormal flui d collection in the pelvis. Some prominent external iliac chain lymph nodes measure up to 9 mm on the right and 1.1 cm on the left. Follow-up is recommended for these lymph nodes. BONES: Degenerative changes at the hips. Facet arthropathy lower lumbar spine. Degenerative disc dise ase lower thoracic spine. IMPRESSION: 1. Nonobstructive 3 mm right renal calculus. No hydronephrosis on either side. 2. A cystic lesion within the right side of the pelvis extending up to the umbilicus measures 14.0 x 10.4 x 10.2 cm, likely of ovarian origin. Further ultrasound evaluation recommended to further tiago cterize. A cystic epithelial ovarian neoplasm is in the differential. If not adequately characterized by ultrasound, MRI will be recommended. TROUBLE OPERATOR evaluation also recommended. 3. The ovaries themselves are not well delineated from clustered bowel loops in the pelvis. 4. Hepatomegaly (23.4 cm). 5. Some scattered prominent pelvic lymph nodes measuring up to 1.1 cm. Probably reactive/post inflam matory. Follow-up in 3 months to ensure stability/resolution.
== END | disposition home or self-care (01) ==
LOC: RADCTMAIN 10:37
PROVIDERS: ATTEND Nurse Practitioner Women's Health
DX: N20.0 Calculus of kidney (principal); N94.89 Other specified conditions associated with female genital organs and menstrual cycle; R16.0 Hepatomegaly, not elsewhere classified; D49.59 Neoplasm of unspecified behavior of other genitourinary organ
CPT/HCPCS: 74176

== ENCOUNTER → 2019-09-28 | Outpatient (CLI) | payer MEDICARE, OTHER ==
[2019-09-28 12:35] LABS: African American GFR (CKD) >90 (>60 ml/min/1.73 sqM); Blood Urea Nitrogen 19 mg/dL (7-17); Non-African American GFR(CKD) >90 (>60 ml/min/1.73 sqM)
--- NOTE | 2019-09-28 13:30 | CT ---
EXAMINATION TYPE: CT abdomen pelvis w con DATE OF EXAM: 09/28/2019 COMPARISON: 09/12/2019 INDICATION: seroma post ovarian cyst removal DLP: 1811.1 mGycm, Automated exposure control for dose reduction was used. CONTRAST: 100 mL of Isovue 300. Study performed without Oral Contrast TECHNIQUE: Axial images were obtained from above the diaphragm to the pubic rami in the axial plane a t 5 mm thick sections. Reconstructed images are reviewed on the computer in the coronal plane. FINDINGS: Limited CT sections are obtained the lung bases. The lung bases are clear. CT ABDOMEN: Liver: Normal Spleen: Normal Pancreas: Normal Adrenal glands: The adrenal glands are normal. Gallbladder: Gallbladder is surgically absent Kidneys: No masses are evident. No hydronephrosis is present. Some peripelvic cysts or inferior pola e right kidney and small peripelvic cyst may be present on the left. Cortical renal cysts on the left inferior medial pole measuring 1.2 cm. No renal stones are evident. Aorta: Normal Inferior vena cava: Normal. CT PELVIS: Loops of bowel within the abdomen and pelvis are normal. There are loops of bowel which are incom pletely distended or lack oral contrast limiting their evaluation. Appendix: Normal as visualized. Urinary bladder: Normal. Genitourinary structures: Uterus appears normal. There is a small hypodensity on the right ovary whic h may be a 1.3 cm cyst. Series 3 image 72. No large cyst is evident. Previous large cysts are surgica lly absent. Osseous structures: No suspicious lytic or sclerotic lesions. There is soft tissue edema over the pelvis. There are some air pockets present. Within the anterior portion of the abdominal muscle is a low-density collection with a few small air bubbles measuring 4.1 x 2.1 cm. Hematoma with postsurgical air or small abscess could be considered. There is an additional air pocket with additional increased density measuring approximately 5.1 cm tr ansverse dimension. Postsurgical change could be considered. No defined wall for abscess formation is clearly identified. There is an additional 9.2 x 1.8 cm density slightly more inferior with a few ti ny air pockets present. Phlegmon formation and postsurgical changes within the differential. IMPRESSIONS: 1. There is a 4.1 x 2.1 cm collection with a small amount of air in the anterior abdominal wall musc le at the surgical site. Postsurgical change should be considered. Phlegmon formation and early absce ss formation remains within the differential. 2. There are additional areas of increased density with small amounts of air are present which can be postsurgical in nature. Phlegmon formation should be considered. No wall formation suggest abscess f ormation at this level is evident.
== END | disposition home or self-care (01) ==
LOC: RADCTMAIN 11:37
PROVIDERS: ATTEND Family Medicine
DX: M96.842 Postprocedural seroma of a musculoskeletal structure following a musculoskeletal system procedure (principal); T81.49XA Infection following a procedure, other surgical site, initial encounter; R93.5 Abnormal findings on diagnostic imaging of other abdominal regions, including retroperitoneum; Z98.890 Other specified postprocedural states
CPT/HCPCS: 82565; 84520; 74177; 36415; Q9967

== ENCOUNTER → 2019-10-24 | Outpatient (CLI) | payer MEDICARE ==
[2019-10-24 08:11] LABS: African American GFR (CKD) >90 (>60 ml/min/1.73 sqM); Blood Urea Nitrogen 16 mg/dL (7-17); Non-African American GFR(CKD) >90 (>60 ml/min/1.73 sqM)
--- NOTE | 2019-10-24 09:25 | CT ---
EXAMINATION TYPE: CT abdomen wo/w con DATE OF EXAM: 10/24/2019 COMPARISON: 09/28/2019 HISTORY: Adrenal mass CT DLP: 2133 mGycm CONTRAST: CT scan of the abdomen is performed with Oral Contrast and without and with IV Contrast, patient inj ected with 100 ml mL of Isovue 300. FINDINGS: LUNG BASES-: No visible nodule. No infiltrate. LIVER/GB: No calcified gallstones. No space occupying hepatic lesion. Biliary tree is of normal ca liber. PANCREAS: No inflammation. No distinct mass. SPLEEN: No splenic enlargement. No lesion seen. ADRENALS: No nodule. No thickening. KIDNEYS/BLADDER: No hydronephrosis. No nephrolithiasis. No distinct renal mass. Urinary bladder g rossly unremarkable. BOWEL: Normal appendix. Normal bowel caliber. No inflammation. LYMPH NODES: No greater than 1cm abdominal or pelvic lymph nodes are appreciated. AORTA: No significant abnormality. OSSEOUS STRUCTURES: No significant abnormality is seen. OTHER: There is a mass noted as identified on prior examination adjacent to the gastric fundus and ad jacent to the left hemidiaphragm measuring approximately 7.2 x 2.6 cm. This mass appears to be separa te from the left adrenal gland. Etiology is indeterminate. Recommend MRI correlation. IMPRESSION: 1. There is a mass noted as identified on prior examination adjacent to the gastric fundus and adjace nt to the left hemidiaphragm measuring approximately 7.2 x 2.6 cm. This mass appears to be separate f rom the left adrenal gland. Etiology is indeterminate. Recommend MRI correlation.
== END | disposition home or self-care (01) ==
LOC: RADCTMAIN 07:14
PROVIDERS: ATTEND Family Medicine
DX: E27.8 Other specified disorders of adrenal gland (principal)
CPT/HCPCS: 82565; 84520; 74170; 36415; Q9967

== ENCOUNTER → 2019-11-21 | Outpatient (CLI) | payer MEDICARE, OTHER | END | disposition home or self-care (01) | LOC: RADMRIMAIN 14:32 | PROVIDERS: ATTEND Family Medicine | DX: Z53.9 Procedure and treatment not carried out, unspecified reason (principal) ==

== ENCOUNTER → 2019-12-21 | Outpatient (CLI) | payer MEDICARE, OTHER ==
--- NOTE | 2019-12-23 12:40 | PE ---
Nuclear medicine PET/CT HISTORY: Abdominal mass, initial, C 64.2 Patient received 10 mCi F-18 FDG intravenously in delayed scanning was performed from the skull base to the mid thighs. Localization and attenuation correction CT scan was performed. Correlation to CT scan abdomen pelvis 09/28/2019, CT abdomen 10/26/2019, CT 04/18/2012 Neck and chest: There is no cervical or supraclavicular adenopathy. No mediastinal, axillary, or jessika r adenopathy. There is no pleural or pericardial effusion. No evident lung mass. ABDOMEN: At the level posterior to the gastric fundus the soft tissue mass seen on previous CT scans is again noted, there is no associated hypermetabolic uptake. There is no retroperitoneal adenopathy. No evident liver mass. Patient is post cholecystectomy. There is no pelvic adenopathy or free fluid. Bulky uterus may be due to underlying fibroids. Osseous structures are unremarkable. IMPRESSION: Findings of the posterior aspect of the gastric fundus and medial to the spleen as descri bed in prior CTs does not show hypermetabolic uptake. Considerations include duplication cyst. Findin gs are stable compared to prior CT dated 04/18/2012.
== END | disposition home or self-care (01) ==
LOC: RADPETMAIN 12:50
PROVIDERS: ATTEND Nurse Practitioner Women's Health
DX: R19.02 Left upper quadrant abdominal swelling, mass and lump (principal); C64.2 Malignant neoplasm of left kidney, except renal pelvis; Z88.0 Allergy status to penicillin; Z88.2 Allergy status to sulfonamides; Z88.1 Allergy status to other antibiotic agents
CPT/HCPCS: 78815; A9552

== ENCOUNTER → 2020-12-11 | Outpatient (CLI) | payer MEDICARE | END | disposition home or self-care (01) | DX: Z12.31 Encounter for screening mammogram for malignant neoplasm of breast (principal) | CPT/HCPCS: 77067 ==

== ENCOUNTER → 2021-02-02 | Outpatient (CLI) | payer MEDICARE | END | disposition home or self-care (01) | LOC: LABWHC1 16:25 | PROVIDERS: ATTEND Nurse Practitioner Women's Health | DX: I45.10 Unspecified right bundle-branch block (principal); R94.31 Abnormal electrocardiogram [ECG] [EKG] | CPT/HCPCS: 36415; 93005 ==

== ENCOUNTER 2021-06-02 19:04 | Emergency (ER) | payer MEDICARE ==
[2021-06-02 21:59] VITALS: RESP 18
--- NOTE | 2021-06-02 23:19 | XR ---
EXAMINATION TYPE: XR thoracic spine complete DATE OF EXAM: 06/02/2021 COMPARISON: Chest x-ray 11/06/2013 HISTORY: Fall. Back pain TECHNIQUE: 4 views FINDINGS: Thoracic vertebra have fairly normal alignment. There is anterior spurring in the lower tho racic spine. There is no significant compression deformity. There is no paraspinal mass. Posterior el ements are intact. IMPRESSION: Spondylotic changes in the lower thoracic spine with slight increased thoracolumbar kypho sis. No change compared to old exam. No fracture.
--- NOTE | 2021-06-02 23:21 | XR ---
EXAMINATION TYPE: XR lumbar spine 2 or 3V DATE OF EXAM: 06/02/2021 COMPARISON: 01/09/2018 HISTORY: Pain TECHNIQUE: 3 views FINDINGS: Lumbar vertebra have normal alignment. Disc spaces are fairly normal. Posterior elements ar e intact. There is mild spurring anteriorly in the lower thoracic spine and upper lumbar spine. Sacro iliac joints are intact. IMPRESSION: Mild degenerative spur formation. No fracture. No change.
[2021-06-03 00:01] VITALS: TEMP 97.9
[2021-06-03] MEDS ORDERED: KETOROLAC 15 MG/ML 1 ML VIAL IM STA (00:04)
--- NOTE | 2021-06-03 00:10 | ED ---
Back Pain HPI - General Chief Complaint: Back Pain/Injury Stated Complaint: Fall, back pain Time Seen by Provider: 06/02/21 23:49 Source: patient Limitations: no limitations - History of Present Illness MD Complaint: back pain, fall Onset/Timin -: hour(s) Place: home Radiation: none Severity: moderate Quality: aching Consistency: constant Improves With: none Worsens With: movement Context: fall Associated Symptoms: denies other symptoms - Related Data Home Medications Medication Instructions Recorded Confirmed Losartan/Hydrochlorothiazide 1 tab PO DAILY 11/06/13 09/14/19 [Losartan-Hctz 100-25 mg Tab] Atorvastatin [Lipitor] 20 mg PO HS 06/09/17 09/14/19 HYDROcodone/APAP 7.5-325MG [[place] 1 tab PO TID PRN 06/09/17 09/14/19 7.5-325] amLODIPine [Norvasc] 10 mg PO DAILY 06/09/17 09/14/19 Butalb/Acetaminophen/Caffeine 1 tab PO Q4HR PRN 04/27/18 09/14/19 [Fioricet 50-325-40] Previous Rx's Medication Instructions Recorded Butalb/APAP/Caff 50-325-40Mg 1 each PO Q4HR PRN 30 Days #10 tab 04/28/18 [Fioricet 50-325-40] Pramipexole [Mirapex] 1 mg PO 2100 30 Days #30 tab 04/28/18 lamoTRIgine [LaMICtal] 100 mg PO 2100 30 Days #30 tab 04/28/18 HYDROcodone/APAP 7.5-325MG [[place] 1 each PO Q6H PRN #12 tab 09/14/19 7.5-325] INSULIN LISPRO (HumaLOG) [humaLOG] 7 unit SQ ACHS #1 vial 09/14/19 Allergies Allergy/AdvReac Type Severity Reaction Status Date / Time levofloxacin [From Levaquin] Allergy Anaphylaxis Verified 06/02/21 21:59 methylprednisolone sodium Allergy Unknown Verified 06/02/21 21:59 succinate [From Solu-Medrol] Penicillins Allergy Swelling Verified 06/02/21 21:59 sulfamethoxazole Allergy Swelling Verified 06/02/21 21:59 [From Bactrim] trimethoprim [From Bactrim] Allergy Swelling Verified 06/02/21 21:59 Review of Systems ROS Statement: Those systems with pertinent positive or pertinent negative responses have been documented in the HPI. ROS Other: All systems not noted in ROS Statement are negative. Constitutional: Denies: fever, chills Respiratory: Denies: cough, dyspnea Cardiovascular: Denies: chest pain Gastrointestinal: Denies: abdominal pain, vomiting, diarrhea, constipation Genitourinary: Denies: dysuria, frequency, hematuria Musculoskeletal: Reports: as per HPI, back pain Neurological: Denies: weakness, numbness, paresthesias Past Medical History Past Medical History: Asthma, Diabetes Mellitus, Hyperlipidemia, Hypertension Additional Past Medical History / Comment(s): 04-25-18 pt wants a flu vaccine while here. pmh includes:ptsd, anxiety, panic attacks, bipolar depression. as child has ear infections /rupture ear drum has scarring and some mild loss of hearing. History of Any Multi-Drug Resistant Organisms: MRSA Date of last positivie culture/infection: 2012 MDRO Source:: right knee Past Surgical History: Cholecystectomy, Orthopedic Surgery Additional Past Surgical History / Comment(s): thoracotomy age 22 for mass in left lung-benign, toby foot sx for bone spurs, toby knee scopes, 2 rt knee replacements, 1 lt knee replacement, rt shoulder scope, rt shoulder rebilt- removed part of clavicle Past Anesthesia/Blood Transfusion Reactions: Motion Sickness Additional Past Anesthesia/Blood Transfusion Reaction / Comment(s): clausterphobia. pt stated never had a blood transfusion Past Psychological History: Anxiety, Bipolar, Depression, Panic Disorder Smoking Status: Current every day smoker Past Alcohol Use History: Occasional Past Drug Use History: None Reported - Past Family History Mother Family Medical History: Diabetes Mellitus, Hypertension Additional Family Medical History / Comment(s): hemochromatosis. "heart problems" Father Family Medical History: Diabetes Mellitus, Hyperlipidemia, Hypertension Additional Family Medical History / Comment(s): depression, anxiety General Exam Limitations: no limitations General appearance: alert, in no apparent distress Head exam: Present: atraumatic, normocephalic Neck exam: Present: normal inspection, full ROM. Absent: tenderness, meningismus Respiratory exam: Present: normal lung sounds bilaterally. Absent: respiratory distress, wheezes, rales, rhonchi, stridor Cardiovascular Exam: Present: regular rate, normal rhythm, normal heart sounds. Absent: systolic murmur, diastolic murmur, rubs, gallop GI/Abdominal exam: Present: soft. Absent: distended, tenderness, guarding, rebound, rigid, mass, pulsatile mass Extremities exam: Present: normal inspection, normal capillary refill. Absent: pedal edema, calf tenderness Back exam: Present: normal inspection, paraspinal tenderness. Absent: full ROM, CVA tenderness (R), CVA tenderness (L), vertebral tenderness Neurological exam: Present: reflexes normal. Absent: motor sensory deficit Skin exam: Present: warm, dry, intact, normal color. Absent: rash Course Vital Signs 06/02/21 06/02/21 21:54 23:56 Temperature 98.9 F 97.9 F Pulse Rate 91 90 Respiratory 18 18 Rate Blood Pressure 129/85 142/101 O2 Sat by Pulse 98 97 Oximetry Disposition Clinical Impression: Mechanical back pain Disposition: HOME SELF-CARE Condition: Good Instructions (If sedation given, give patient instructions): Acute Low Back Pain (ED) Is patient prescribed a controlled substance at d/c from ED?: No Referrals: Sebastian Reyez MD [Primary Care Provider] - 1-2 days
[2021-06-03 01:23] VITALS: BP 147/89; PULSE 78
== END 2021-06-03 01:07 | disposition home or self-care (01) ==
LOC: EC 19:04
DX: M54.89 Other dorsalgia (principal); J45.909 Unspecified asthma, uncomplicated; E11.9 Type 2 diabetes mellitus without complications; E78.5 Hyperlipidemia, unspecified; I10 Essential (primary) hypertension; F41.0 Panic disorder [episodic paroxysmal anxiety]; F32.9 Major depressive disorder, single episode, unspecified; F17.200 Nicotine dependence, unspecified, uncomplicated; Z79.84 Long term (current) use of oral hypoglycemic drugs; Z79.899 Other long term (current) drug therapy; W19.XXXA Unspecified fall, initial encounter
CPT/HCPCS: 72072; 72100; 99283; 96372; J1885

== ENCOUNTER 2022-05-25 10:10 | Day surgery (SDC) | payer MEDICARE ==
[2022-05-20 12:15] VITALS: BMI 36.7
[~2022-05-25 10:10] MED LIST: LACTATED RINGERS 1,000 ML IV SCH
[2022-05-25 10:35] VITALS: TEMP 97.1
[2022-05-25 10:42] LABS: Glucose,Whole Blood 106 mg/dL (70-110)
[2022-05-25] MEDS ORDERED: LIDOCAINE 2% INJ 20 MG/ML (2 ML VIAL) ONE (11:05)
[2022-05-25] MEDS ORDERED: PROPOFOL 10 MG/ML 20 ML VIAL IV ONE (11:05)
--- NOTE | 2022-05-25 11:06 | P.GSHP ---
History of Present Illness H&P Date: 05/25/22 Chief Complaint: Colon cancer screening 51-year-old female here today for colonoscopy. She's never had one before. Patient does have complaints of hemorrhoids that were found to be external on previous office evaluation. No family history of colon cancer. Past Medical History Past Medical History: Asthma, Diabetes Mellitus, Deep Vein Thrombosis (DVT), Hyperlipidemia, Hypertension Additional Past Medical History / Comment(s): pmh includes:ptsd, anxiety, panic attacks, bipolar depression. as child has ear infections /rupture ear drum has scarring and some mild loss of hearing.migraines, abnormal heartbeat unsure of type during general anesthesia, neuropathy b/l upper and lower extremities, sepsis from shoulder, ovarian mass benign, left leg DVT History of Any Multi-Drug Resistant Organisms: MRSA Date of last positivie culture/infection: 2019 MDRO Source:: shoulder Past Surgical History: Cholecystectomy, Orthopedic Surgery Additional Past Surgical History / Comment(s): thoracotomy age 22 for mass in left lung-benign, toby foot sx for bone spurs, toby knee scopes, 2 rt knee replacements, 1 lt knee replacement, rt shoulder scope, rt shoulder rebuilt- removed part of clavicle, left shoulder I&D. oopherectomy torsion with mass removed-benign, bilateral I&D total knee debridement, PICC line (since removed) Past Anesthesia/Blood Transfusion Reactions: Previous Problems w/ Anesthesia, Motion Sickness Additional Past Anesthesia/Blood Transfusion Reaction / Comment(s): abnormal heartbeat during general anesthesia. has woke up during anesthesia in the past. clausterphobia. not sure if has recieved blood transfusion Smoking Status: Former smoker, Vaper - Past Family History Mother Family Medical History: Diabetes Mellitus, Hypertension Additional Family Medical History / Comment(s): hemochromatosis. "heart problems" Father Family Medical History: Diabetes Mellitus, Hyperlipidemia, Hypertension Additional Family Medical History / Comment(s): depression, anxiety Medications and Allergies Home Medications Medication Instructions Recorded Confirmed Type Losartan/Hydrochlorothiazide 1 tab PO DAILY 11/06/13 05/25/22 History [Losartan-Hctz 100-25 mg Tab] HYDROcodone/APAP 7.5-325MG [[place] 1 tab PO TID PRN 06/09/17 05/25/22 History 7.5-325] amLODIPine [Norvasc] 10 mg PO DAILY 06/09/17 05/25/22 History Butalb/APAP/Caff 50-325-40Mg 1 each PO Q4HR PRN 30 Days #10 tab 04/28/18 Rx [Fioricet 50-325-40] INSULIN LISPRO (HumaLOG) [humaLOG] 7 unit SQ ACHS #1 vial 09/14/19 05/25/22 Rx Cholecalciferol (Vitamin D3) 5,000 unit SQ WEEKLY 05/20/22 05/25/22 History [Vitamin D3 (500 Iu/5 ML)] Furosemide [Lasix] 40 mg PO DAILY 05/20/22 05/25/22 History Gabapentin [Neurontin] 200 mg PO TID 05/20/22 05/25/22 History Insulin Glargine [Lantus Vial] 32 unit SQ HS 05/20/22 05/25/22 History Naproxen Sodium 550 mg PO BID 05/20/22 05/25/22 History Rimegepant Sulfate [Nurtec Odt] 75 mg PO DAILY PRN 05/20/22 05/25/22 History lamoTRIgine [LaMICtal] 150 mg PO DAILY 05/20/22 05/25/22 History methocarbamoL [Methocarbamol] 750 mg PO TID 05/20/22 05/25/22 History Allergies Allergy/AdvReac Type Severity Reaction Status Date / Time levofloxacin [From Levaquin] Allergy Anaphylaxis Verified 05/25/22 10:28 methylprednisolone sodium Allergy Unknown Verified 05/25/22 10:28 succinate [From Solu-Medrol] Penicillins Allergy Swelling Verified 05/25/22 10:28 sulfamethoxazole Allergy Swelling Verified 05/25/22 10:28 [From Bactrim] trimethoprim [From Bactrim] Allergy Swelling Verified 05/25/22 10:28 Surgical - Exam Vital Signs Temp Pulse Resp BP Pulse Ox 97.1 F L 80 18 146/71 98 05/25/22 10:33 05/25/22 10:33 05/25/22 10:33 05/25/22 10:33 05/25/22 10:33 Physical exam: General: Well-developed, well-nourished HEENT: Normocephalic, sclerae nonicteric Abdomen: Nontender, nondistended Extremities: No edema Neuro: Alert and oriented Assessment and Plan (1) Colon cancer screening Narrative/Plan: Will proceed with colonoscopy Current Visit: Yes Status: Acute Code(s): Z12.11 - ENCOUNTER FOR SCREENING FOR MALIGNANT NEOPLASM OF COLON SNOMED Code(s): 465054528
--- NOTE | 2022-05-25 11:23 | P.PCN ---
Date of Procedure: 05/25/22 Procedure(s) Performed: PREOPERATIVE DIAGNOSIS: Colon cancer screening POSTOPERATIVE DIAGNOSIS: Internal and external hemorrhoids PROCEDURE: Colonoscopy ANESTHESIA: MAC SURGEON: Cayetano Carter M.D. SPECIMENS: None ENDOSCOPIC PROCEDURE: The patient was placed on the endoscopy table in the left decubitus position. The Olympus colonoscope was inserted into the anus and passed under direct visualization to the base of the cecum. The appendiceal orifice was visualized. From that point the scope was slowly withdrawn inspecting all surfaces carefully. There were no neoplastic inflammatory or polypoid lesions throughout the cecum, ascending, transverse, descending, sigmoid and rectum. There was no visible diverticulosis noted. Digital rectal examination revealed small internal and external hemorrhoids circumferentially. The patient was taken to the recovery room in stable condition per anesthesia guidelines. RECOMMENDATIONS: Resume diet. Follow-up colonoscopy 10 years.
[2022-05-25 11:41] VITALS: BP 142/76; PULSE 69; RESP 18
== END 2022-05-25 12:02 | disposition home or self-care (01) ==
LOC: ORWHC2ENDO 10:10
PROVIDERS: ATTEND Surgery
DX: Z12.11 Encounter for screening for malignant neoplasm of colon (principal); C18.9 Malignant neoplasm of colon, unspecified; E11.9 Type 2 diabetes mellitus without complications; E78.5 Hyperlipidemia, unspecified; F31.9 Bipolar disorder, unspecified; I10 Essential (primary) hypertension; J45.909 Unspecified asthma, uncomplicated; K64.4 Residual hemorrhoidal skin tags; K64.8 Other hemorrhoids; Z82.49 Family history of ischemic heart disease and other diseases of the circulatory system; Z83.3 Family history of diabetes mellitus; Z83.49 Family history of other endocrine, nutritional and metabolic diseases; Z86.718 Personal history of other venous thrombosis and embolism; Z87.891 Personal history of nicotine dependence; Z88.0 Allergy status to penicillin; Z88.1 Allergy status to other antibiotic agents; Z88.2 Allergy status to sulfonamides; Z90.49 Acquired absence of other specified parts of digestive tract; Z96.653 Presence of artificial knee joint, bilateral
CPT/HCPCS: 45378; J2704; J2001

== ENCOUNTER 2022-06-18 06:27 | Day surgery (SDC) | payer MEDICARE ==
[2022-06-15 13:05] VITALS: BMI 36.6
[~2022-06-18 06:27] MED LIST changes: +ACETAMINOPHEN TAB 500 MG TAB PO PRN; +HEPARIN SODIUM,PORCINE/PF 5,000 UNIT/0.5 ML SYRINGE SQ PRN; +LIDOCAINE 1% (10MG/ML) FOR IV START INTRADERMA PRN; +MIDAZOLAM 2 MG/2 ML VIAL IV PRN; +ONDANSETRON 4 MG/2 ML VIAL IVP ONE; +Pre Op ABX Message 1 EACH MISC MISCELLANE ONE
[2022-06-18 07:12] LABS: Glucose,Whole Blood 112 mg/dL (70-110)
[2022-06-18] MEDS ORDERED: LIDOCAINE 4% LTA KIT (4 ML) TOPICAL ONE (07:27)
[2022-06-18] MEDS ORDERED: fentaNYL (PF) 50 MCG/ML 2 ML AMP ONE (07:27)
[2022-06-18] MEDS ORDERED: ceFAZolin 1,000 MG VIAL ONE (07:27)
[2022-06-18] MEDS ORDERED: MIDAZOLAM 2 MG/2 ML VIAL ONE (07:27)
[2022-06-18] MEDS ORDERED: PROPOFOL 10 MG/ML 20 ML VIAL IV ONE (07:27)
[2022-06-18] MEDS ORDERED: SUCCINYLCHOLINE CHLORIDE 200 MG/10 ML VIAL IV ONE (07:27)
[2022-06-18] MEDS ORDERED: LIDOCAINE 2% INJ 20 MG/ML (2 ML VIAL) ONE (07:27)
--- NOTE | 2022-06-18 07:31 | P.GSHP ---
History of Present Illness H&P Date: 06/18/22 Chief Complaint: Symptomatic hemorrhoids 52-year-old female seen in the office in February and underwent recent colonoscopy. Patient with complaints of internal and external hemorrhoids that cause pain and itching and frequent bleeding. No prior procedures. Symptoms of been going on for many years. Patient states her bowel function is fairly normal without significant constipation issues. Past Medical History Past Medical History: Asthma, Diabetes Mellitus, Hyperlipidemia, Hypertension Additional Past Medical History / Comment(s): ptsd, anxiety, panic attacks, bipolar depression. as child has ear infections /rupture ear drum has scarring and some mild loss of hearing. HEMORRHOIDS, History of Any Multi-Drug Resistant Organisms: MRSA Date of last positivie culture/infection: 2012 MDRO Source:: BILAT KNEES Past Surgical History: Cholecystectomy, Orthopedic Surgery Additional Past Surgical History / Comment(s): thoracotomy age 22 for mass in left lung-benign, toby foot sx for bone spurs, toby knee scopes, 2 rt knee replacements, 1 lt knee replacement, rt shoulder scope, rt shoulder rebilt- removed part of clavicle, COLONOSCOPY Past Anesthesia/Blood Transfusion Reactions: Motion Sickness Additional Past Anesthesia/Blood Transfusion Reaction / Comment(s): claustrophobia. pt stated never had a blood transfusion Smoking Status: Former smoker, Vaper - Past Family History Mother Family Medical History: Diabetes Mellitus, Hypertension Additional Family Medical History / Comment(s): hemochromatosis. "heart pro blems" Father Family Medical History: Diabetes Mellitus, Hyperlipidemia, Hypertension Additional Family Medical History / Comment(s): depression, anxiety Medications and Allergies Home Medications Medication Instructions Recorded Confirmed Type Losartan/Hydrochlorothiazide 1 tab PO DAILY 11/06/13 06/18/22 History [Losartan-Hctz 100-25 mg Tab] HYDROcodone/APAP 7.5-325MG [[place] 1 tab PO TID PRN 06/09/17 06/18/22 History 7.5-325] amLODIPine [Norvasc] 10 mg PO DAILY 06/09/17 06/18/22 History Butalb/APAP/Caff 50-325-40Mg 1 each PO Q4HR PRN 30 Days #10 tab 04/28/18 06/18/22 Rx [Fioricet 50-325-40] INSULIN LISPRO (HumaLOG) [humaLOG] 7 unit SQ ACHS #1 vial 09/14/19 06/18/22 Rx Furosemide [Lasix] 40 mg PO DAILY 05/20/22 06/18/22 History Gabapentin [Neurontin] 200 mg PO TID 05/20/22 06/18/22 History Insulin Glargine [Lantus Vial] 32 unit SQ HS 05/20/22 06/18/22 History Naproxen Sodium 550 mg PO BID 05/20/22 06/18/22 History Rimegepant Sulfate [Nurtec Odt] 75 mg PO DAILY PRN 05/20/22 06/18/22 History lamoTRIgine [LaMICtal] 150 mg PO DAILY 05/20/22 06/18/22 History methocarbamoL [Methocarbamol] 750 mg PO TID 05/20/22 06/18/22 History Ergocalciferol [Vitamin D2 (1250 1,250 mcg PO MO 06/15/22 06/18/22 History Mcg = [id number] Iu)] Allergies Allergy/AdvReac Type Severity Reaction Status Date / Time levofloxacin [From Levaquin] Allergy UNALBE TO Verified 06/18/22 06:54 GET OUT OF BED methylprednisolone sodium Allergy Swelling Verified 06/18/22 06:54 succinate [From Solu-Medrol] Penicillins Allergy Anaphylaxis Verified 06/18/22 06:54 sulfamethoxazole Allergy Anaphylaxis Verified 06/18/22 06:54 [From Bactrim] trimethoprim [From Bactrim] Allergy Anaphylaxis Verified 06/18/22 06:54 Surgical - Exam Vital Signs Temp Pulse Resp BP Pulse Ox 98.4 F 87 18 128/74 97 06/18/22 06:48 06/18/22 06:48 06/18/22 06:48 06/18/22 06:48 06/18/22 06:48 Physical exam: General: Well-developed, well-nourished HEENT: Normocephalic, sclerae nonicteric Abdomen: Nontender, nondistended Extremities: No edema Neuro: Alert and oriented Rectal: Prominent internal and external hemorrhoidal complex in the left anterior and right posterior positions Results - Labs Abnormal Lab Results - Last 24 Hours (Table) 06/18/22 Range/Units 07:08 POC Glucose (mg/dL) 112 H (70-110) mg/dL Assessment and Plan (1) Hemorrhoid Narrative/Plan: She [id number] female with symptomatic internal and external hemorrhoids. Will proceed with operative excisional hemorrhoidectomy at this time. Risks of bleeding, infection, stenosis, stricture, recurrence, pain, retention, constipation reviewed. She understands and wishes to proceed. Current Visit: Yes Status: Acute Code(s): K64.9 - UNSPECIFIED HEMORRHOIDS SNOMED Code(s): 04444467
[2022-06-18] MEDS ORDERED: BUPIVACAIN-EPI 0.25%-1:200,000 30 ML VIAL SQ ONE ×2 (07:37→08:22)
[2022-06-18] MEDS ORDERED: SODIUM CHLORIDE 0.9% 50 ML with ceFAZolin 2,000 MG IV ONE ×2 (08:04)
[2022-06-18] MEDS ORDERED: GELATIN SPONGE,ABSORB (LARGE) 1 EACH SPONGE MISCELLANE ONE (08:17)
[2022-06-18 08:44] VITALS: TEMP 97.6
[2022-06-18] MEDS ORDERED: ONDANSETRON 4 MG/2 ML VIAL IVP PRN (08:48)
[2022-06-18] MEDS ORDERED: NALOXONE 0.4 MG/ML 1 ML VIAL IV PRN (08:48)
[2022-06-18] MEDS ORDERED: HYDROcodone/APAP 5-325MG 1 EACH TAB PO PRN (08:48)
[2022-06-18] MEDS ORDERED: HYDROmorphone 1 MG/ML 1 ML SYRINGE IVP PRN (08:48)
[2022-06-18] MEDS ORDERED: ACETAMINOPHEN TAB 325 MG TAB PO PRN (08:48)
[2022-06-18] MEDS: HYDROmorphone 0.5 MG/0.5 ML SYRINGE IVP PRN ×2 (08:50→09:05)
--- NOTE | 2022-06-18 08:54 | P.OP ---
Date of Procedure: 06/18/22 Procedure(s) Performed: PREOPERATIVE DIAGNOSIS: Symptomatic hemorrhoids POSTOPERATIVE DIAGNOSIS: Same PROCEDURE: Operative excision internal/external hemorrhoid column 2 SURGEON: Emma EBL: Tricia Hanks ANESTHESIA: Gen. COMPLICATIONS: None OPERATIVE PROCEDURE: The patient was placed in the prone jackknife position after general anesthesia was achieved. The buttocks were taped laterally. The perianal region and hemorrhoids were carefully inspected. The most prominent and symptomatic hemorrhoidal column was in the left anterior and right posterior position. This was consistent with our preoperative office evaluation. We chose to remove these 2 hemorrhoidal columns. The left anterior was first addressed. The hemorrhoid was grasped and retracted externally. A 3-0 chromic stitch was used to ligate the base of the hemorrhoidal vein internally. An incision was made extending onto the perianal skin using a scalpel. The hemorrhoid was then excised using a combination of electrocautery and Harmonic scalpel. The defect was closed using a running locking 3-0 chromic stitch that was previously used. No bleeding was noted after closure. The right posterior hemorrhoidal column was then addressed in a similar fashion. The hemorrhoid was again retracted externally and a 3-0 chromic based stitch was placed. The hemorrhoid was excised using a combination of the scalpel externally and then the Harmonic scalpel and the electrocautery. The area was again closed using a running locking 3-0 chromic stitch. The area was localized with Marcaine solution. A Gelfoam was rolled and placed within the anal canal and distal rectum. No bleeding was noted. DISPOSITION: Stable to recovery room
[2022-06-18 09:30] VITALS: RESP 18
[2022-06-18 09:47] VITALS: BP 123/69; PULSE 76
== END 2022-06-18 10:07 | disposition home or self-care (01) ==
LOC: OR 06:27
PROVIDERS: ATTEND Surgery
DX: K64.4 Residual hemorrhoidal skin tags (principal); K64.8 Other hemorrhoids; J45.909 Unspecified asthma, uncomplicated; E11.9 Type 2 diabetes mellitus without complications; I10 Essential (primary) hypertension; E78.5 Hyperlipidemia, unspecified; F41.9 Anxiety disorder, unspecified; F32.A Depression, unspecified; Z90.49 Acquired absence of other specified parts of digestive tract; Z96.653 Presence of artificial knee joint, bilateral; Z87.891 Personal history of nicotine dependence; Z83.3 Family history of diabetes mellitus; Z82.49 Family history of ischemic heart disease and other diseases of the circulatory system; Z83.49 Family history of other endocrine, nutritional and metabolic diseases; Z79.4 Long term (current) use of insulin; Z79.899 Other long term (current) drug therapy
CPT/HCPCS: 88304; 46260; J2250; J0330; J2405; J0690; J3010; J2704; J1170; J1644; J2001

== ENCOUNTER → 2024-02-07 | Outpatient (CLI) | payer MEDICARE ==
--- NOTE | 2024-02-07 18:43 | MR ---
EXAMINATION TYPE: MR brain wo con DATE OF EXAM: 02/07/2024 COMPARISON: 11/30/2016 HISTORY: Headaches, dizziness, visual disturbance. CONTRAST: Performed utilizing 0 mL intravenous Gadavist gadolinium contrast. TECHNIQUE: Multiplanar, multiecho imaging on a 3.0 Zoe magnet is performed through the brain. Stud y is performed within 24 hours of arrival to the hospital. The craniovertebral junction is normal. The pituitary is normal. Optic chiasm appears normal. Diffusion-weighted imaging is performed. No abnormal hyperintensity is present to suggest an acute i ntracranial infarct or acute ischemic change. No suspicious chronic signal abnormality identified. White matter appears normal. [place]-white matter d ifferentiation is preserved. Ventricles and sulci are appropriate for the patient age. Mild mucosal thickening maxillary sinus. The ethmoid air cells. Remaining paranasal sinuses and masto id air cells are clear. IMPRESSION: 1. Mild mucosal thickening left maxillary sinus and ethmoid air cells. 2. No suspicious intracranial abnormality
--- NOTE | 2024-02-07 22:18 | MR ---
EXAMINATION TYPE: MR eladio/morenita wo con DATE OF EXAM: 02/07/2024 COMPARISON: 12/08/2016 HISTORY: Headaches, neck pain, LBP, weakness in fingers, BLE radic. CONTRAST: None TECHNIQUE: Multiplanar multiecho imaging on a 3.0 Zoe magnet is performed through the cervical spin e. FINDINGS: The craniovertebral junction is normal. Vertebral body alignment is straightened. C7-T1: No focal disc herniation or significant disc bulge is evident. No spinal canal stenosis or n eural foraminal stenosis is present. C6-7: Mild symmetrical disc bulge is present with anterior thecal sac flattening. No cord contact is evident. No spinal canal stenosis or neural foraminal stenosis is present. Findings appear stable fro m comparison. C5-6: No focal disc herniation or significant disc bulge is evident. No spinal canal stenosis or minal ral foraminal stenosis is present. C4-5: No focal disc herniation or significant disc bulge is evident. No spinal canal stenosis or minal ral foraminal stenosis is present. C3-4: Broad-based subligamentous disc herniation is present central right paracentral region. This ex tends superiorly. No cord contact. The spinal canal stenosis present. Neural foramen are patent. Find ings appear stable from comparison. C2-3: No focal disc herniation or significant disc bulge is evident. No spinal canal stenosis or minal ral foraminal stenosis is present. IMPRESSION: 1. Minimal subligamentous disc herniation at C3-4 without cord contact or spinal canal stenosis. 2. Broad base disc bulge with anterior thecal sac flattening C6-7 without cord contact or spinal yariel l stenosis. 3. Cervical spine findings appears similar to comparison. EXAMINATION TYPE: MR eladio/morenita wo con DATE OF EXAM: 02/07/2024 COMPARISON: HISTORY: Headaches, neck pain, LBP, weakness in fingers, BLE radic. CONTRAST: 0 mL intravenous . TECHNIQUE: Multiplanar, multisequence images of the lumbar spine were acquired. FINDINGS: L5-S1: No significant disc bulge or disc herniation. No spinal canal stenosis. No foraminal stenosi s. Facet hypertrophy is present with some ligamentum flavum laxity. No spinal canal narrowing is evid ent. L4-L5: No significant disc bulge or disc herniation. No spinal canal stenosis. No foraminal stenosi s. Disc desiccation is present. Facet hypertrophy with ligamentum flavum laxity is present. This may have mild posterior lateral thecal sac compression with some lateral canal narrowing slightly greate r than comparison.. L3-L4: No significant disc bulge or disc herniation. No spinal canal stenosis. No foraminal stenosi s. Mild ligamentum flavum laxity has posterior lateral thecal sac contacting without stenosis. L2-L3: No significant disc bulge or disc herniation. No spinal canal stenosis. No foraminal stenosi s. Neural foramen are patent.. L1-L2: No significant disc bulge or disc herniation. No spinal canal stenosis. No foraminal stenosi s. Neural foramen are patent.. T12-L1: No significant disc bulge or disc herniation. No spinal canal stenosis. No foraminal stenos is. Neural foramen are patent.. IMPRESSION: 1. Facet hypertrophy with ligamentum flavum laxity L4-5 may have some mild lateral canal narrowing, a n interval change from comparison. No stenosis however is evident. 2. Facet hypertrophy with event flavum laxity L5-S1.
== END | disposition home or self-care (01) ==
LOC: RADMRIMAIN 16:44
PROVIDERS: ATTEND Psychiatry & Neurology Neurology
DX: M47.27 Other spondylosis with radiculopathy, lumbosacral region (principal); M51.16 Intervertebral disc disorders with radiculopathy, lumbar region; M50.123 Cervical disc disorder at C6-C7 level with radiculopathy; G43.909 Migraine, unspecified, not intractable, without status migrainosus; H53.8 Other visual disturbances; J34.89 Other specified disorders of nose and nasal sinuses; R41.3 Other amnesia; R42 Dizziness and giddiness
CPT/HCPCS: 70551; 72141; 72148